=== PATIENT | male | born 1955 | race Caucasian/White ===

== ENCOUNTER 2018-10-23 10:58 | Inpatient (IN) | payer BC ==
[2018-10-23] MEDS ORDERED: Ondansetron INJ* 2 MG/ML VIAL IV ONE (11:13)
[2018-10-23] MEDS ORDERED: NS 0.9% 1000 ML** 1,000 ML IV ONE ×2 (11:13→12:08)
--- NOTE | 2018-10-23 11:19 | ED ---
Abdominal Pain/Male - HPI Summary HPI Summary: The patient is a 63 y/o M presenting to [facility] arriving by ambulance with a chief complaint of RLQ and LLQ pain starting yesterday. He states that he has not been officially diagnosed with diverticulitis, but has had episodes of symptoms similar to the condition, but they have all been in the LLQ. Now that the pain has also moved to the RLQ, he is concerned. The sharp pain is currently rated 10/10 in severity. He additionally c/o dysuria, decreased urinary frequency, no BM for two days (usually has one everyday), nausea, and decreased appetite. He denies vomiting. Hx of DM, HTN, and cardiac stents. No hx of abd surgery, but has had shoulder surgery. Allergic to Oxycodone. Former smoker. Rare EtOH. - History of Current Complaint Chief Complaint: EDAbdPain Stated Complaint: ABD PAIN PER EMS Time Seen by Provider: 10/23/18 11:04 Hx Obtained From: Patient Onset/Duration: Sudden Onset, Lasting Hours - since yesterday, Still Present Timing: Lasting Hours - since yesterday Severity Initially: Severe Severity Currently: Severe Pain Intensity: 10 Pain Scale Used: 0-10 Numeric Location: Other - LLQ and RLQ Radiates: No Character: Sharp Aggravating Factor(s): Nothing Alleviating Factor(s): Nothing Associated Signs And Symptoms: Positive: Constipation, Urinary Symptoms - dysuria and decreased frequency, Decreased Appetite, Nausea. Negative: Vomiting - Allergies/Home Medications Allergies/Adverse Reactions: Allergies Allergy/AdvReac Type Severity Reaction Status Date / Time oxycodone Allergy Intermediate Anxiety Verified 10/23/18 11:39 Home Medications: Home Medications Aspirin [Aspirin EC] 81 mg PO DAILY 10/23/18 [History Confirmed 10/23/18] Atorvastatin* [Lipitor 40 MG*] 40 mg PO DAILY 10/23/18 [History Confirmed ] Metoprolol Succinate XL TAB* [Toprol XL TAB*] 50 mg PO DAILY 10/23/18 [History Confirmed 10/23/18] PMH/Surg Hx/FS Hx/Imm Hx Endocrine/Hematology History: Reports: Hx Anticoagulant Therapy Denies: Hx Blood Disorders, Hx Diabetes, Hx Sickle Cell Disease, Hx Thyroid Disease, Hx Anemia, Hx Unexplained Bleeding Cardiovascular History: Reports: Hx Coronary Artery Disease - 7 stents, Hx Hypercholesterolemia, Hx Hypertension, Other Cardiovascular Problems/Disorders - CAD with stents Denies: Hx Aneurysm, Hx Angina, Hx Angioplasty, Hx Auto Implanted Cardiovert Defib, Hx Cardiac Arrest, Hx Cardiomegaly, Hx Congenital Heart Disease, Hx Congestive Heart Failure, Hx Deep Vein Thrombosis, Hx Embolism, Hx Hypotension, Hx Pacemaker/ICD, Hx Peripheral Vascular Disease, Hx Rheumatic Fever, Hx Syncope , Hx Valvular Heart Disease Respiratory History: Reports: Hx Sleep Apnea - possible, uses no CPAP Denies: Hx Asthma, Hx Chronic Bronchitis, Hx Chronic Obstructive Pulmonary Disease (COPD), Hx Cystic Fibrosis, Hx Lung Cancer, Hx Pleural Effusion, Hx Pneumonia, Hx Pulmonary Edema, Hx Pulmonary Embolism, Hx Seasonal Allergies GI History: Reports: Hx Gastroesophageal Reflux Disease Denies: Hx Cirrhosis, Hx Crohn's Disease, Hx Diverticulosis, Hx Gall Bladder Disease, Hx Gastrointestinal Bleed, Hx Hiatal Hernia, Hx Irritable Bowel, Hx Jaundice, Hx Obstructive Bowel, Hx Ileostomy, Hx Pyloric Stenosis, Hx Ulcer History: Denies: Hx Renal Disease Musculoskeletal History: Reports: Hx Back Problems, Hx Gout Sensory History: Denies: Hx Contacts or Glasses, Hx Hearing Aid Opthamlomology History: Denies: Hx Contacts or Glasses Psychiatric History: Reports: Hx Substance Abuse - Surgical History Surgery Procedure, Year, and Place: LEFT ROTATOR CUFF REPAIR, 07/11/13. Right ankle repair - 25 years ago Hx Anesthesia Reactions: No Infectious Disease History: No Infectious Disease History: Denies: Hx Clostridium Difficile, Hx Hepatitis, Hx Human Immunodeficiency Virus (HIV), Hx of Known/Suspected MRSA, Hx Shingles, Hx Tuberculosis, Hx Known/ Suspected VRE, Hx Known/Suspected VRSA, History Other Infectious Disease, Traveled Outside the [place] in Last 30 Days - Family History Known Family History: Positive: Cardiac Disease, Other Family History: R & n/C - Social History Alcohol Use: Occasionally Alcohol Amount: beer Hx Substance Use: No Substance Use Type: Reports: None Hx Tobacco Use: Yes Smoking Status (MU): Former Smoker Type: Cigarettes Do You Chew or Dip Tobacco: No Have You Chewed or Dipped Tobacco in the LAST YEAR: No Have You Smoked in the Last Year: No Review of Systems Positive: Abdominal Pain - RLQ and LLQ pain, Nausea, Other - decreased appetite , no BM for two days. Negative: Vomiting Positive: dysuria, frequency - decreased All Other Systems Reviewed And Are Negative: Yes Physical Exam - Summary Physical Exam Summary: GENERAL: Patient is a well-developed and nourished male who is lying comfortable in the stretcher. Patient is not in any acute respiratory distress. HEAD AND FACE: Normocephalic EYES: PERRLA, EOMI x 2. EARS: Hearing grossly intact. MOUTH: Oropharynx within normal limits. NECK: Supple, trachea is midline, no adenopathy, no JVD, no carotid bruit. CHEST: Symmetric, no tenderness at palpation LUNGS: Clear to auscultation bilaterally. No wheezing or crackles. CVS: Regular rate and rhythm, S1 and S2 present, no murmurs or gallops appreciated. ABDOMEN: Soft, diffuse pain worse in lower quadrants. Bowel sounds are normal. No abdominal abnormal pulsations. EXTREMITIES: Full ROM in all major joints, no edema, no cyanosis or clubbing. NEURO: Alert and oriented x 3. No acute neurological deficits. Speech is normal and follows commands. SKIN: Dry and warm Triage Information Reviewed: Yes Vital Signs On Initial Exam: Initial Vitals Temp Pulse Resp BP Pulse Ox 98.7 F 67 20 136/64 95 10/23/18 10:59 10/23/18 10:59 10/23/18 10:59 10/23/18 10:59 10/23/18 10:59 Vital Signs Reviewed: Yes Diagnostics - Vital Signs Vital Signs Temp Pulse Resp BP Pulse Ox 10/23/18 10:59 98.7 F 67 20 136/64 95 - Laboratory Result Diagrams: 10/24/18 05:31 10/24/18 05:31 Lab Statement: Any lab studies that have been ordered have been reviewed, and results considered in the medical decision making process. - CT Abd/Pel CT CT Interpretation Completed By: Radiologist Summary of CT Findings: 1. CT findings are most consistent with sigmoid diverticulitis without drainable fluid collection. Particularly if the patient has never had a colonoscopy, direct visualization may be appropriate after the patient's acute symptoms have passed to rule out the unlikely possibility of inflammatory bowel carcinoma. 2. The cecum and proximal transverse colon are mostly fluid-filled. 3. Additional chronic and degenerative changes noted in the body the report unlikely to be related to the patient's current presentation. ED physician has reviewed this report. - EKG 1117 Cardiac Rate: NL - 81 BPM EKG Rhythm: Sinus Rhythm EKG Comparison: No Significant Change - Similar to EKG taken on 01/03/2016. Summary of EKG Findings: Q waves in anterior leads. Flattening of T waves in lateral leads. Re-Evaluation - Re-Evaluation First Eval Re-Evaluation Time: 12:55 Change: Unchanged Comment: The patient states he is still in a lot of pain, but it is tolerable. He declines pain medication at this time. Second Eval Re-Evaluation Time: 15:00 Change: Unchanged Comment: I spoke with patient concerning results and admission to [facility]. He agrees with this plan. Abdominal Pain Male Course/Dx - Course Course Of Treatment: The patient is a 63 y/o M presenting [facility] arriving by ambulance with a chief complaint of RLQ and LLQ pain starting yesterday with associated dysuria, decreased urinary frequency, constipation, nausea, and decreased appetite. Upon physical exam, the patient exhibits diffuse abd pain worse in lower quadrants. In the ED course, the patient was administered Ns, Zofran, Morphine, and Iohexol (for CT). Blood work reveals WBC of 23.1, Hgb of 12.8, Hct of 40, MCV of 78, MCH of 25, immature gran% of 19, band neutrophils% of 19, abs neuts of 21.5, abs lymphs of 0.7, abs monocytes of 0.9, INR of 1.38, BUN/creatinine of 21, glucose of 104, total bilirubin of 1.20, AST of 12, CRP of 218.45, globulin of 4.1, albumin/globulin of 0.9, and lipase of <10. EKG reveals Q waves in anterior leads and flattening of T waves in lateral leads. Abd/Pel CT reveals sigmoid diverticulitis with likely fluid-filled cecum and proximal transverse colon. He is diagnosed with sigmoid diverticulitis. Case discussed with hospitalist Dr. Powell at 1500. She accepts the patient for admission. Patient agrees with this plan and understands the need for admission at this time. - Diagnoses Provider Diagnoses: Sigmoid diverticulitis - Provider Notifications Discussed Care Of Patient With: Marzena Powell - hospitalist Time Discussed With Above Provider: 15:00 Instructed by Provider To: Other - I spoke with Dr. Powell, who accepts the patient for admission at this time. Discharge - Sign-Out/Discharge Documenting (check all that apply): Patient Departure - Patient will be admitted to [facility] for further care. Patient Received Moderate/Deep Sedation with Procedure: No - Discharge Plan Condition: Stable Disposition: ADMITTED TO [facility] - Billing Disposition and Condition Condition: STABLE Disposition: Admitted to [facility] - Attestation Statements Document Initiated by Donteibe: Yes Documenting Scribe: Letty Davila Provider For Whom Donteibpipe is Documenting (Include Credential): Dr. Mark Grant MD Scribe Attestation: Letty Perales scribed for Dr. Mark Grant MD on 10/24/18 at 1251. Scribe Documentation Reviewed: Yes Provider Attestation: The documentation as recorded by the Letty umana accurately reflects the service I personally performed and the decisions made by me, Dr. Mark Grant MD Status of Scribe Document: Viewed
[2018-10-23] MEDS: Morphine 4 MG/ML VIAL (1 ml) 4 MG/ML VIAL IV ONE ×2 (11:34→16:34)
[2018-10-23 11:55] LABS: Hematocrit 40 % (42-52); Hemoglobin 12.8 g/dL (14.0-18.0); Mean Corpuscular HGB Conc 32 g/dL (31-36); Mean Corpuscular Hemoglobin 25 pg (27-31); Mean Corpuscular Volume 78 fL (80-94); Mean Platelet Volume 6.9 fL (7.4-10.4); Platelet Count 561 10^3/uL (150-450); Red Blood Count 5.12 10^6 /uL (4.18-5.48); Red Cell Distribution Width 17 % (10.5-15); White Blood Count 23.1 10^3/uL (3.5-10.8)
[2018-10-23 12:07] LABS: Activated Partial Thrombo Time 31.3 seconds (26.0-36.3); INR 1.38 (0.82-1.09)
[2018-10-23 12:12] LABS: ALT 10 U/L (7-52); AST 12 U/L (13-39); Albumin 3.7 g/dL (3.2-5.2); Albumin/Globulin Ratio 0.9 (1-3); Alkaline Phosphatase 101 U/L (34-104); Anion Gap 9 mmol/L (2-11); Blood Urea Nitrogen 21 mg/dL (6-24); C Reactive Protein 218.45 mg/L (<8.01); CO2 Carbon Dioxide 23 mmol/L (22-32); Calcium 9.1 mg/dL (8.6-10.3); Chloride 106 mmol/L (101-111); EGFR African American 91.3 (>60); EGFR Non-African American 75.5 (>60); Globulin 4.1 g/dL (2-4); Glucose 104 mg/dL (70-100); Magnesium 1.9 mg/dL (1.9-2.7); Potassium 3.9 mmol/L (3.5-5.0); Sodium 138 mmol/L (135-145); Total Protein 7.8 g/dL (6.4-8.9)
[2018-10-23 12:13] LABS: Troponin I 0.01 ng/mL (<0.04)
[2018-10-23 12:28] LABS: ABS Neutrophils 21.5 10^3/ul (1.5-7.7)
[2018-10-23] MEDS ORDERED: Iohexol 300* (CONTRAST) 10 ML SDV IV ONE (13:16)
[2018-10-23] MEDS ORDERED: metroNIDAZOLE IV 500 MG/100ML* 500 MG/100 ML BAG IVPB ONE (14:51)
[2018-10-23] MEDS ORDERED: Ciprofloxacin 400MG IVPREMIX(* 400 MG/200 ML BAG IVPB ONE (14:51)
[2018-10-23] MEDS ORDERED: Ketorolac INJ* 30 MG/ML 1 ML VIAL IV PUSH ONE (14:51)
[2018-10-23] MEDS ORDERED: Acetaminophen TAB* 325 MG PO PRN (15:30)
[2018-10-23] MEDS ORDERED: Magnesium Hydroxide LIQ* 30 ML UDC PO PRN (15:30)
[2018-10-23] MEDS ORDERED: Morphine INJ* 2 MG/ML 1 ML SYRINGE (TWO MG - NEW SYRINGE VERSION) IV PRN (15:30)
[2018-10-23] MEDS ORDERED: Morphine 4 MG/ML VIAL (1 ml) 4 MG/ML VIAL ONE (16:20)
[2018-10-23] MEDS: Enoxaparin(*) 40 MG/0.4 ML SYR SUBCUT SCH (17:50)
--- NOTE | 2018-10-23 20:34 | HP ---
CC: Dr. Cuauhtemoc Acosta * HISTORY AND PHYSICAL: DATE OF ADMISSION: 10/23/18 PRIMARY CARE PHYSICIAN: Cuauhtemoc Acosta MD HEALTHCARE PROXY: Marcelle (partner), phone number [phone]. CODE STATUS: Full. CHIEF COMPLAINT: Lower abdominal pain for 1 day. HISTORY OF PRESENT ILLNESS: Mr. Juarez is a 63-year-old man with a history of coronary artery disease status post 7 stents, last in 2011; hypertension; history of alcohol abuse with hospitalization for alcohol withdrawal; gout; and diverticulitis, who states that yesterday morning he began to feel lower abdominal pain on both sides when he woke up with a stabbing pain that was progressive and sometimes radiated to his upper abdomen. He took ibuprofen which "took the edge off" and also Pepto- Bismol which did not help. The pain was so severe that he said he experienced decreased appetite but no nausea or vomiting. His last bowel movement was the day before this and was formed brown stool. He has not had a bowel movement since 2 days ago. This pain progressed throughout the day yesterday and overnight he had significant night sweat but denied fever or chills. When he woke up this morning, the pain was worse, so he decided to present to the emergency room, because this reminded him of his prior episode of diverticulitis except it was worse. He was still able to pass gas. He denies chest pain, palpitations, dysuria, headache, shortness of breath. The patient reports a colonoscopy in 2015 that was normal except for 1 polyp which was removed. In the emergency room, the patient was noted to be afebrile, but had a white blood cell count of 23 with a normal lactic acid level. He had a abdomen and pelvis CT, which showed recurrence of diverticulitis without concern for abscess or perforation. Given his severe abdominal pain requiring IV medications for pain control, he was asked to be admitted to the hospitalist service. He had been started on IV Cipro/Flagyl and IV morphine for pain relief. Ten point review of systems performed, with pertinent positives and negatives listed in HPI. PAST MEDICAL HISTORY: 1. Coronary artery disease status post 7 stents, last one placed in 2011. 2. Hypertension. 3. Alcohol abuse in remission. The patient had hospitalization in 2013 in the context of stopping alcohol for a surgical procedure and had presented with anxiety, diaphoresis, and hallucinations, thought from alcohol withdrawal, although, the patient reports this was from taking oxycodone for surgery. 4. Gout. 5. Multiple left shoulder surgeries and dislocations. 6. Obstructive sleep apnea, unable to tolerate CPAP machine. MEDICATIONS: 1. Aspirin 81 mg daily. 2. Amlodipine 10 mg daily. 3. Metoprolol succinate 50 mg daily. 4. Allopurinol 300 mg daily. 5. Lansoprazole 30 mg daily. 6. Clopidogrel 75 mg daily. 7. Atorvastatin 40 mg daily. 8. [place]-3 fatty acids. 9. Nitroglycerin 0.4 mg sublingual every 5 minutes as needed for chest pain. 10. Naproxen 600 mg daily. ALLERGIES: OXYCODONE leads to panic attacks, although of note, the patient took OXYCODONE in the setting of stopping alcohol use, so it is thought that his symptoms were actually from alcohol withdrawal. FAMILY HISTORY: Father from an [place]. His grandfather also had history of coronary artery disease. Father had a CABG at 39. Mother had type of renal cancer that was cured with surgical removal. 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 He quit smoking in his early 30s. He started as a teenager. He started drinking alcohol age 16, 6 to 8 beers a day, but decreased his use to 1 day a week approximately a year and half ago. Denies other drug use. Lives with his partner, Marcelle. PHYSICAL EXAMINATION GENERAL: He is a well-nourished man, appears his stated age, nontoxic, mildly uncomfortable on movement, otherwise, alert and interactive and very pleasant. VITAL SIGNS: Afebrile, heart rate 60s, blood pressure 131/70, respiratory rate 16, oxygen saturation 96% on room air. HEENT: Moist mucous membranes. NECK: Unable to appreciate JVP given habitus. LUNGS: Clear to auscultation bilaterally. HEART: Regular rate and rhythm. No murmurs, gallops, or rubs. ABDOMEN: Protuberant, soft, tenderness to palpation in epigastrium, left lower quadrant, right lower quadrant with positive rebound tenderness. No guarding. No organomegaly appreciated. EXTREMITIES: Warm, well perfused. No evidence of edema. DIAGNOSTIC STUDIES/LAB DATA: Labs reviewed and significant for WBC 23 with left shift. Hemoglobin 12.8, microcytic. BUN/creatinine 21/1. Total bilirubin 1.2, unremarkable AST/ALT. CRP 218. CT abdomen and pelvis consistent with sigmoid diverticulitis without drainable fluid collection. The cecum and proximal transverse colon are mostly fluid filled. EKG with normal sinus rhythm at 61, borderline left axis deviation, Q waves V1 and V2. ASSESSMENT AND PLAN: A 63-year-old male with significant coronary artery disease; hypertension; gout; history of diverticulitis; history of alcohol abuse ; obstructive sleep apnea, not on CPAP; obesity, who is presenting with subacute lower abdominal pain associated with night sweats and decreased appetite found in the emergency room with leukocytosis and CT findings consistent with diverticulitis. 1. Diverticulitis. Continue IV ciprofloxacin and metronidazole. We will continue pain control with 1 g acetaminophen every 6 hours as needed for fever or mild pain and morphine 4 mg IV every 4 hours for moderate to severe pain as needed. Ondansetron for nausea. We will monitor vitals and fluid status closely , can advance diet as tolerated. The patient has not had a BM in 2 days, but noted to have liquid in his colon, so we will monitor bowel movements closely and give Miralax as needed for constipation and we will consider glycerine suppository. 2. Coronary artery disease. Continue aspirin and Plavix and metoprolol succinate 50 mg. 3. Hypertension. Blood pressure is borderline elevated, likely from so, so will continue home amlodipine 10 mg daily. 4. Gout. Continue allopurinol 300 mg daily. 5. DVT prophylaxis. Start on Lovenox subcu daily. 6. The patient is full code. TIME SPENT: Approximately 60 minutes was spent on admission of this patient, more than half of which was spent at bedside for the interview and exam. [id number]/[facility] #: [id number] [facility]ER'S HOSPITALHeriberto
[2018-10-23] MEDS: Atorvastatin* 40 MG TAB PO SCH (20:37)
[2018-10-23] MEDS: Morphine 4 MG/ML VIAL (1 ml) 4 MG/ML VIAL IV PRN (23:13)
[2018-10-24] MEDS: metroNIDAZOLE IV 500 MG/100ML* 500 MG/100 ML BAG IVPB SCH ×3 (00:17→16:41)
[2018-10-24] MEDS: Ciprofloxacin 400MG IVPREMIX(* 400 MG/200 ML BAG IVPB SCH ×2 (02:34→15:32)
[2018-10-24 05:51] LABS: Hematocrit 35 % (42-52); Hemoglobin 11.2 g/dL (14.0-18.0); Mean Corpuscular HGB Conc 32 g/dL (31-36); Mean Corpuscular Hemoglobin 25 pg (27-31); Mean Corpuscular Volume 77 fL (80-94); Mean Platelet Volume 6.9 fL (7.4-10.4); Platelet Count 457 10^3/uL (150-450); Red Blood Count 4.54 10^6 /uL (4.18-5.48); Red Cell Distribution Width 18 % (10.5-15); White Blood Count 22.6 10^3/uL (3.5-10.8)
[2018-10-24 06:10] LABS: Anion Gap 8 mmol/L (2-11); BUN/Creatinine Ratio 13.5 (8-20); Blood Urea Nitrogen 13 mg/dL (6-24); CO2 Carbon Dioxide 24 mmol/L (22-32); Calcium 8.3 mg/dL (8.6-10.3); Chloride 105 mmol/L (101-111); EGFR African American 95.7 (>60); EGFR Non-African American 79.1 (>60); Glucose 97 mg/dL (70-100); Potassium 3.3 mmol/L (3.5-5.0); Sodium 137 mmol/L (135-145)
[2018-10-24 06:21] LABS: ABS Basophils 0.1 10^3/ul (0-0.2); ABS Lymphocytes 0.7 10^3/ul (1.0-4.8); ABS Monocytes 1.3 10^3/ul (0-0.8); ABS Neutrophils 20.4 10^3/ul (1.5-7.7); Eosinophil % 0.1 %; Lymphocyte % 3.2 %
[2018-10-24 06:24] LABS: TSH (Thyroid Stimulating Horm) 2.82 mcIU/mL (0.34-5.60)
[2018-10-24 06:27] LABS: Iron < 17 ug/dL (50-212)
[2018-10-24] MEDS: Morphine 4 MG/ML VIAL (1 ml) 4 MG/ML VIAL IV PRN (06:47)
[2018-10-24] MEDS: Metoprolol Succinate XL TAB* 50 MG PO SCH (08:10)
[2018-10-24] MEDS: Aspirin EC TAB* 81 MG TAB.EC PO SCH (08:10)
[2018-10-24] MEDS: Pantoprazole TAB * 40 MG TAB PO SCH (08:10)
[2018-10-24] MEDS: amLODIPine TAB* 5 MG PO SCH (08:10)
[2018-10-24] MEDS: Clopidogrel TAB* 75 MG PO SCH (08:11)
[2018-10-24] MEDS: Allopurinol TAB* 300 MG PO SCH (08:11)
[2018-10-24] MEDS: Ketorolac INJ* 15 MG/ML 1 ML VIAL IV PUSH PRN ×2 (08:12→15:20)
[2018-10-24 08:39] LABS: Magnesium 1.8 mg/dL (1.9-2.7)
[2018-10-24] MEDS: OMEGA PO SCH (08:55)
[2018-10-24] MEDS: FATTY ACIDS PO SCH (08:55)
[2018-10-24] MEDS ORDERED: HYDROmorphone INJ1* 1 MG/ML SYRINGE IV SLOW PU PRN (09:46)
[2018-10-24 09:49] LABS: % Iron Saturation 7 % (15-55); Total Iron Binding Capacity 245 mcg/dL (250-450); Transferrin 175 mg/dL (203-362)
[2018-10-24] MEDS ORDERED: Magnesium Sulfate 2 GM IV* 2 GM/50 ML BAG IVPB ONE (09:49)
[2018-10-24] MEDS: Potassium Chloride* LIQUID 20 MEQ/15 ML UDC PO SCH ×2 (10:05→15:10)
--- NOTE | 2018-10-24 15:01 | PN ---
Subjective Date of Service: 10/24/18 Interval History: Lead Physician received call from nurse that patient's pain was uncontrolled, but patient had also not taken any of his ordered pain medication. Morphine, Tylenol and Toradol given with little to no relief. Therefore, IV pain medication changed to Dilaudid. Patient reports pain is tolerable when he is lying still, but increases and is "severe" with movement, coughing, and deep breathing. Denies nausea, vomiting, diarrhea, fever, chills, sob, cp. Reports he does not feel hungry, but attempted jello without nausea or increase in pain. Reports constipation. Reports last Wednesday. Also not passing flatus today or this weekend. Objective Active Medications: Acetaminophen (Tylenol Tab*) 975 mg PO Q6H PRN PRN Reason: Fever or Mild Pain Allopurinol (Zyloprim Tab*) 300 mg PO DAILY [facility] Last Admin: 10/24/18 08:11 Dose: 300 mg Amlodipine Besylate (Norvasc Tab*) 10 mg PO DAILY [facility] Last Admin: 10/24/18 08:10 Dose: 10 mg Aspirin (Aspirin Ec Tab*) 81 mg PO DAILY [facility] Last Admin: 10/24/18 08:10 Dose: 81 mg Atorvastatin Calcium (Lipitor*) 40 mg PO BEDTIME [facility] Last Admin: 10/23/18 20:37 Dose: 40 mg Clopidogrel Bisulfate (Plavix Tab*) 75 mg PO DAILY [facility] Last Admin: 10/24/18 08:11 Dose: 75 mg Enoxaparin Sodium (Lovenox(*)) 40 mg SUBCUT Q24H [facility] Last Admin: 10/23/18 17:50 Dose: 40 mg Hydromorphone HCl (Dilaudid Inj1s*) 1 mg IV SLOW PU Q4H PRN PRN Reason: PAIN Ciprofloxacin/Dextrose (Cipro 400 Mg Ivpremix(*)) 400 mg in 200 mls @ 200 mls/ hr IVPB Q12H [facility] Last Admin: 10/24/18 02:34 Dose: 200 mls/hr Metronidazole/Sodium Chloride (Flagyl 500 Mg Ivpb*) 500 mg in 100 mls @ 100 mls /hr IVPB 0100,0900,1700 [facility] Last Admin: 10/24/18 08:18 Dose: 100 mls/hr Ketorolac Tromethamine (Toradol Inj*) 15 mg IV PUSH Q6H PRN PRN Reason: PAIN Last Admin: 10/24/18 08:12 Dose: 15 mg Magnesium Hydroxide (Milk Of Magnsergio Liq*) 30 ml PO Q4H PRN PRN Reason: CONSTIPATION Metoprolol Succinate (Toprol Xl Tab*) 50 mg PO DAILY [facility] Last Admin: 10/24/18 08:10 Dose: 50 mg Non-Formulary Medication ([place]-3 Fatty Acids [Fish Oil]) 1,200 mg PO DAILY [facility] Last Admin: 10/24/18 08:55 Dose: Not Given Ondansetron HCl (Zofran Inj*) 4 mg IV Q6H PRN PRN Reason: NAUSEA Pantoprazole Sodium (Protonix Tab*) 40 mg PO DAILY [facility]; Protocol Last Admin: 10/24/18 08:10 Dose: 40 mg Vital Signs - 8 hr 10/24/18 10/24/18 10/24/18 07:48 07:50 08:00 Temperature 97.2 F Pulse Rate 86 Respiratory 20 18 18 Rate Blood Pressure 131/60 (mmHg) O2 Sat by Pulse 88 94 Oximetry 10/24/18 10:05 Temperature Pulse Rate Respiratory 18 Rate Blood Pressure (mmHg) O2 Sat by Pulse Oximetry Oxygen Devices in Use Now: Nasal Cannula Appearance: Grimicing with movement and coughing. NAD at rest. Eyes: No Scleral Icterus Ears/Nose/Mouth/Throat: Clear Oropharnyx, Mucous Membranes Moist Neck: NL Appearance and Movements; NL JVP Respiratory: Symmetrical Chest Expansion and Respiratory Effort, Clear to Auscultation Cardiovascular: NL Sounds; No Murmurs; No JVD, RRR, No Edema Abdominal: - - Abd soft. Tender throughout. BS hypoactive. Extremities: No Edema Skin: No Rash or Ulcers Neurological: Alert and Oriented x 3 Nutrition: Taking PO's Result Diagrams: 10/24/18 05:31 10/24/18 05:31 Additional Lab and Data: Laboratory Results - last 24 hr 10/24/18 10/24/18 05:31 05:31 WBC 22.6 H RBC 4.54 Hgb 11.2 L Hct 35 L MCV 77 L MCH 25 L MCHC 32 RDW 18 H Plt Count 457 H D MPV 6.9 L Neut % (Auto) 90.2 Lymph % (Auto) 3.2 [place] % (Auto) 5.9 Eos % (Auto) 0.1 Baso % (Auto) 0.6 Absolute Neuts (auto) 20.4 H Absolute Lymphs (auto) 0.7 L Absolute Monos (auto) 1.3 H Absolute Eos (auto) 0.0 Absolute Basos (auto) 0.1 Absolute Nucleated RBC 0.0 Nucleated RBC % 0.0 Sodium 137 Potassium 3.3 L Chloride 105 Carbon Dioxide 24 Anion Gap 8 BUN 13 Creatinine 0.96 Est GFR ( Amer) 95.7 Est GFR (Non-Af Amer) 79.1 BUN/Creatinine Ratio 13.5 Glucose 97 Calcium 8.3 L Magnesium 1.8 L Iron < 17 L TIBC 245 L % Saturation 7 L Unsat Iron Binding < 230 Transferrin 175 L Ferritin 481.0 H TSH 2.82 Microbiology and Other Data: Microbiology 10/23/18 14:05 Blood Venous Aerobic Blood Culture - Preliminary No Growth Day 1 10/23/18 14:05 Blood Venous Anaerobic Blood Culture - Preliminary No Growth Day 1 10/23/18 11:19 Blood Venous Aerobic Blood Culture - Preliminary No Growth Day 1 10/23/18 11:19 Blood Venous Anaerobic Blood Culture - Preliminary No Growth Day 1 Assess/Plan/Problems-Billing Assessment: 63 yr old male with pmh of CAD s/p 7 stents, HTN, ETOH abuse in remission, gout , multiple left shoulder surgeries; present to ED lower abd pain. - Patient Problems (1) Diverticulitis Comment: - Cont Cipro and Flagyl. - Pain not controlled with Morphine, therefore, changed to Dilaudid 0.5 mg Q4hr. Dilaudid 0.5 mg Q 4 hr gave only slight relief, therefore, increased to Dilaudid 1 mg Q 4hr. Monitor for pain control and sedation - No BM since Wednesday. Denies passing flatus. No evdince of obstruction on CT. Bowel meds are ordered. - Decrease PO intake. Resume IVF until taking more PO (2) Hypertension Comment: - Cont Norvasc and Metoprolol - Normotensive currently (3) CAD (coronary artery disease) Comment: - Cont Plavix, ASA, and Metoprolol (4) Gout Comment: - Cont Allopurinol (5) DVT prophylaxis Comment: - Lovenox SQ (6) Full code status Status and Disposition: Inpatient for IV pain control. Discharge home when medically stable. Attending: Leslie Haddad
[2018-10-24] MEDS: Enoxaparin(*) 40 MG/0.4 ML SYR SUBCUT SCH (15:10)
[2018-10-24] MEDS: HYDROmorphone INJ1* 1 MG/ML SYRINGE IV SLOW PU PRN ×2 (15:10→20:49)
[2018-10-24 15:52] LABS: BUN/Creatinine Ratio 16.5 (8-20); Calcium 8.7 mg/dL (8.6-10.3); EGFR African American 94.6 (>60); EGFR Non-African American 78.2 (>60); Potassium 3.7 mmol/L (3.5-5.0)
[2018-10-24] MEDS: Ondansetron INJ* 2 MG/ML VIAL IV PRN ×2 (16:40→20:48)
[2018-10-24] MEDS: NS 0.9% 1000 ML** 1,000 ML IV SCH (16:41)
[2018-10-24] MEDS ORDERED: PROCHLORPERAZINE INJ 5 MG/ML 2 ML VIAL IM PRN (17:52)
[2018-10-24] MEDS ORDERED: PROCHLORPERAZINE INJ 5 MG/ML 2 ML VIAL IV PRN (18:04)
[2018-10-24] MEDS: Atorvastatin* 40 MG TAB PO SCH (20:49)
[2018-10-25] MEDS: metroNIDAZOLE IV 500 MG/100ML* 500 MG/100 ML BAG IVPB SCH ×2 (00:52→09:28)
[2018-10-25] MEDS: Ciprofloxacin 400MG IVPREMIX(* 400 MG/200 ML BAG IVPB SCH (02:49)
[2018-10-25 07:03] LABS: ABS Eosinophils 0.3 10^3/ul (0-0.6); ABS Lymphocytes 0.7 10^3/ul (1.0-4.8); ABS Monocytes 1.1 10^3/ul (0-0.8); ABS Neutrophils 15.8 10^3/ul (1.5-7.7); Eosinophil % 1.7 %; Hematocrit 32 % (42-52); Hemoglobin 10.4 g/dL (14.0-18.0); Lymphocyte % 3.9 %; Mean Corpuscular HGB Conc 32 g/dL (31-36); Mean Corpuscular Hemoglobin 25 pg (27-31); Mean Corpuscular Volume 77 fL (80-94); Mean Platelet Volume 7.1 fL (7.4-10.4); Platelet Count 410 10^3/uL (150-450); Red Blood Count 4.17 10^6 /uL (4.18-5.48); Red Cell Distribution Width 18 % (10.5-15); White Blood Count 17.9 10^3/uL (3.5-10.8)
[2018-10-25 08:05] LABS: Urine Appearance Cloudy; Urine Bacteria Absent (Absent); Urine Bilirubin Negative (Negative); Urine Blood Negative (Negative); Urine Color Amber; Urine Glucose Negative (Negative); Urine Ketones Negative (Negative); Urine Nitrite Negative (Negative); Urine Protein 1+(30 mg/dL) (Negative); Urine Red Blood Cell 1+(3-5/hpf) (Absent); Urine Specific Gravity 1.027 (1.010-1.030); Urine Urobilinogen Positive (Negative); Urine White Blood Cell Trace(0-5/hpf) (Absent)
[2018-10-25] MEDS: OMEGA PO SCH (09:22)
[2018-10-25] MEDS: FATTY ACIDS PO SCH (09:22)
[2018-10-25] MEDS: Clopidogrel TAB* 75 MG PO SCH (09:28)
[2018-10-25] MEDS: Allopurinol TAB* 300 MG PO SCH (09:28)
[2018-10-25] MEDS: Metoprolol Succinate XL TAB* 50 MG PO SCH (09:28)
[2018-10-25] MEDS: amLODIPine TAB* 5 MG PO SCH (09:28)
[2018-10-25] MEDS: Aspirin EC TAB* 81 MG TAB.EC PO SCH (09:28)
[2018-10-25] MEDS: Pantoprazole TAB * 40 MG TAB PO SCH (09:28)
--- NOTE | 2018-10-25 09:30 | PN ---
Subjective Date of Service: 10/25/18 Interval History: Received call last evening that patient was nauseated. Given patient's abd assessment and new nausea, abd xray obtained. Revealed partial sbo. Patient assessed at bedside this morning. Reports pain is more controlled with Dilaudid as he is now able to move with "severe" pain. He was also able to ambulate. Denies flatus or BM. Last BM 10/21. Continues to have some nausea which is relieved with anti nausea medications. Continues to have abd pain throughout. Denies cp, sob, vomiting, fever, chills. Objective Active Medications: Acetaminophen (Tylenol Tab*) 975 mg PO Q6H PRN PRN Reason: Fever or Mild Pain Allopurinol (Zyloprim Tab*) 300 mg PO DAILY [facility] Last Admin: 10/24/18 08:11 Dose: 300 mg Amlodipine Besylate (Norvasc Tab*) 10 mg PO DAILY [facility] Last Admin: 10/24/18 08:10 Dose: 10 mg Aspirin (Aspirin Ec Tab*) 81 mg PO DAILY [facility] Last Admin: 10/24/18 08:10 Dose: 81 mg Atorvastatin Calcium (Lipitor*) 40 mg PO BEDTIME [facility] Last Admin: 10/24/18 20:49 Dose: 40 mg Clopidogrel Bisulfate (Plavix Tab*) 75 mg PO DAILY [facility] Last Admin: 10/24/18 08:11 Dose: 75 mg Enoxaparin Sodium (Lovenox(*)) 40 mg SUBCUT Q24H [facility] Last Admin: 10/24/18 15:10 Dose: 40 mg Hydromorphone HCl (Dilaudid Inj1s*) 1 mg IV SLOW PU Q4H PRN PRN Reason: PAIN Last Admin: 10/24/18 20:49 Dose: 1 mg Ciprofloxacin/Dextrose (Cipro 400 Mg Ivpremix(*)) 400 mg in 200 mls @ 200 mls/ hr IVPB Q12H [facility] Last Admin: 10/25/18 02:49 Dose: 200 mls/hr Metronidazole/Sodium Chloride (Flagyl 500 Mg Ivpb*) 500 mg in 100 mls @ 100 mls /hr IVPB 0100,0900,1700 [facility] Last Admin: 10/25/18 00:52 Dose: 100 mls/hr Sodium Chloride (Ns 0.9% 1000 Ml) 1,000 mls @ 75 mls/hr IV PER RATE [facility] Last Admin: 10/24/18 16:41 Dose: 75 mls/hr Ketorolac Tromethamine (Toradol Inj*) 15 mg IV PUSH Q6H PRN PRN Reason: PAIN Last Admin: 10/24/18 15:20 Dose: 15 mg Magnesium Hydroxide (Milk Of Magnesia Liq*) 30 ml PO Q4H PRN PRN Reason: CONSTIPATION Metoprolol Succinate (Toprol Xl Tab*) 50 mg PO DAILY [facility] Last Admin: 10/24/18 08:10 Dose: 50 mg Non-Formulary Medication (Massey-3 Fatty Acids [Fish Oil]) 1,200 mg PO DAILY [facility] Last Admin: 10/25/18 09:22 Dose: Not Given Ondansetron HCl (Zofran Inj*) 4 mg IV Q6H PRN PRN Reason: NAUSEA Last Admin: 10/24/18 20:48 Dose: 4 mg Pantoprazole Sodium (Protonix Tab*) 40 mg PO DAILY [facility]; Protocol Last Admin: 10/24/18 08:10 Dose: 40 mg Prochlorperazine Edisylate (Compazine Inj*) 5 mg IV Q6H PRN PRN Reason: NAUSEA Vital Signs - 8 hr 10/25/18 10/25/18 10/25/18 07:25 07:28 07:30 Temperature 98.4 F Pulse Rate 59 Respiratory 18 16 16 Rate Blood Pressure 125/62 (mmHg) O2 Sat by Pulse 92 Oximetry 10/25/18 09:21 Temperature Pulse Rate 67 Respiratory Rate Blood Pressure (mmHg) O2 Sat by Pulse Oximetry Oxygen Devices in Use Now: None Appearance: Comfortable, NAD Eyes: No Scleral Icterus Ears/Nose/Mouth/Throat: Clear Oropharnyx, Mucous Membranes Moist Neck: NL Appearance and Movements; NL JVP Respiratory: Symmetrical Chest Expansion and Respiratory Effort, Clear to Auscultation Cardiovascular: NL Sounds; No Murmurs; No JVD, RRR, No Edema Abdominal: - - Hypoactive BS. Tender throughout to light touch. Not distended or rigid. Lymphatic: No Cervical Adenopathy Extremities: No Edema Skin: No Rash or Ulcers Neurological: Alert and Oriented x 3 Nutrition: - - NPO except sips of H20 Result Diagrams: 10/25/18 06:10 10/24/18 15:29 Additional Lab and Data: Laboratory Results - last 24 hr 10/24/18 10/24/18 10/25/18 05:31 15:29 06:10 WBC 17.9 H RBC 4.17 L Hgb 10.4 L Hct 32 L MCV 77 L MCH 25 L MCHC 32 RDW 18 H Plt Count 410 MPV 7.1 L Neut % (Auto) 88.2 Lymph % (Auto) 3.9 [place] % (Auto) 6.0 Eos % (Auto) 1.7 Baso % (Auto) 0.2 Absolute Neuts (auto) 15.8 H Absolute Lymphs (auto) 0.7 L Absolute Monos (auto) 1.1 H Absolute Eos (auto) 0.3 Absolute Basos (auto) 0.0 Absolute Nucleated RBC 0.0 Nucleated RBC % 0.0 Sodium 135 Potassium 3.7 Chloride 104 Carbon Dioxide 25 Anion Gap 6 BUN 16 Creatinine 0.97 Est GFR ( Amer) 94.6 Est GFR (Non-Af Amer) 78.2 BUN/Creatinine Ratio 16.5 Glucose 109 H Calcium 8.7 Magnesium TIBC 245 L % Saturation 7 L Unsat Iron Binding < 230 Transferrin 175 L Urine Color Urine Appearance Urine pH Ur Specific [place] Urine Protein Urine Ketones Urine Blood Urine Nitrate Urine Bilirubin Urine Urobilinogen Ur Leukocyte Esterase Urine WBC (Auto) Urine RBC (Auto) Urine Bacteria Urine Glucose 10/25/18 10/25/18 06:10 07:00 WBC RBC Hgb Hct MCV MCH MCHC RDW Plt Count MPV Neut % (Auto) Lymph % (Auto) [place] % (Auto) Eos % (Auto) Baso % (Auto) Absolute Neuts (auto) Absolute Lymphs (auto) Absolute Monos (auto) Absolute Eos (auto) Absolute Basos (auto) Absolute Nucleated RBC Nucleated RBC % Sodium Potassium Chloride Carbon Dioxide Anion Gap BUN Creatinine Est GFR ( Amer) Est GFR (Non-Af Amer) BUN/Creatinine Ratio Glucose Calcium Magnesium 2.4 TIBC % Saturation Unsat Iron Binding Transferrin Urine Color [place] Urine Appearance Cloudy Urine pH 5.0 Ur Specific [place] 1.027 Urine Protein 1+(30 mg/dl) A Urine Ketones Negative Urine Blood Negative Urine Nitrate Negative Urine Bilirubin Negative Urine Urobilinogen Positive A Ur Leukocyte Esterase Trace A Urine WBC (Auto) Trace(0-5/hpf) Urine RBC (Auto) 1+(3-5/hpf) A Urine Bacteria Absent Urine Glucose Negative Microbiology and Other Data: Microbiology 10/23/18 14:05 Blood Venous Aerobic Blood Culture - Preliminary No Growth Day 1 10/23/18 14:05 Blood Venous Anaerobic Blood Culture - Preliminary No Growth Day 1 10/23/18 11:19 Blood Venous Aerobic Blood Culture - Preliminary No Growth Day 1 10/23/18 11:19 Blood Venous Anaerobic Blood Culture - Preliminary No Growth Day 1 Assess/Plan/Problems-Billing Assessment: 63 yr old male with pmh of CAD s/p 7 stents, HTN, ETOH abuse in remission, gout , multiple left shoulder surgeries; present to ED lower abd pain. - Patient Problems (1) SBO (small bowel obstruction) Comment: - Cont NPO - Abd Xray revealed partial SBO. - Surgical consult requested and I appreciate their assistance - Per surgery we can hold off on NG tube as patient would not benefit at this time as imaging does not reveal a distended stomach (2) Diverticulitis Comment: - Per surgery stop Cipro/Flagyl and start Zosyn - Pain better controlled with Dilaudid 1 mg Q 4hr. Monitor for pain control and sedation - Repeat CT per surgery; Results consistent with diverticulitis and small note of pericolonic gas, and signs of ileus. Discussed results with Dr Camargo - Cont IVF given NPO status (3) Anemia Comment: - Mixed type; possible chronic disease (given hx of etoh abuse), iron deficiency , and inflammation - Would benefit from repeat studies as outpatient when improved and maybe iron replacement - Stool ordered for blood (4) Hypertension Comment: - Cont Norvasc and Metoprolol - Normotensive currently (5) CAD (coronary artery disease) Comment: - Cont Plavix, ASA, and Metoprolol (6) Gout Comment: - Cont Allopurinol (7) DVT prophylaxis Comment: - Lovenox SQ (8) Full code status Status and Disposition: Inpatient for IV pain control. Discharge home when medically stable. Attending: Leslie Haddad
[2018-10-25] MEDS ORDERED: Piperacillin/Tazobac ADVAN(*) 3.375 GM in NS 0.9% 100 ML* 100 ML IVPB ONE (09:47)
[2018-10-25] MEDS ORDERED: Zosyn per Pharmacy* NOTE FOLLOW UP SCH (10:00)
[2018-10-25] MEDS: Ondansetron INJ* 2 MG/ML VIAL IV PRN ×2 (10:23→19:40)
[2018-10-25] MEDS: Ketorolac INJ* 15 MG/ML 1 ML VIAL IV PUSH PRN ×2 (10:27→23:10)
[2018-10-25] MEDS ORDERED: Iohexol 300* (CONTRAST) 10 ML SDV IV ONE (13:05)
[2018-10-25] MEDS: ZOSYN 3.375 GM Q8H per EXTENDED INFUSION IVPB SCH ×4 (15:35→22:51)
[2018-10-25] MEDS: Enoxaparin(*) 40 MG/0.4 ML SYR SUBCUT SCH (15:35)
[2018-10-25] MEDS: HYDROmorphone INJ1* 1 MG/ML SYRINGE IV SLOW PU PRN ×2 (15:44→19:40)
--- NOTE | 2018-10-25 20:05 | CONS ---
CONSULTATION REPORT: DATE OF CONSULT: 10/25/18 SERVICE: General Surgery. ATTENDING SURGEON: Dr. Erin Camargo. REASON FOR CONSULT: Diverticulitis with ileus. HISTORY OF PRESENT ILLNESS: Mr. Juarez is a very pleasant 63-year-old gentleman with a history of coronary artery disease, status post 7 stents, the last one in 2011; hypertension; history of alcohol abuse; history of diverticulitis who presented to the emergency room on 10/23/18 with complaints of having severe lower abdominal pain that felt like the pain that he previously had with his diverticulitis episodes. He notes today that that pain was more significant than his prior diverticulitis episodes. He says that for the past 7-8 years he has one or two episodes a year but they mostly resolve with PO antibiotics. However, this time the pain was so severe that he came to the emergency room for evaluation. He underwent a CT scan that showed sigmoid diverticulitis without an abscess and his white blood cell count upon admission was 23. He was admitted to the medical service and his white blood cell count has been slowly declining; however, today he complained of having more abdominal distention. He says that he has not had any flatus or bowel movements before coming into the emergency room. Normally, he has bowel movements almost every day, although he does state that he occasionally gets constipated. He denies having any blood in his stools earlier. An abdominal x-ray today showed possible partial small-bowel obstruction and therefore, surgery was consulted. The patient today says that he still continues to have some significant abdominal pain that has not really improved. He says that pain medications do help it, but then the pain just comes back. He says that he does feel more distended than before. Otherwise, no significant complaints. Of note, the patient said that his last colonoscopy was in 2016 where he had one polyp removed and he has no history of colon cancer in his family. PAST MEDICAL HISTORY: 1. Coronary artery disease, status post 7 stents, last one placed in 2011. 2. Hypertension. 3. Alcohol abuse, in remission. 4. Gout. 5. Multiple orthopedic surgeries. 6. Obstructive sleep apnea. MEDICATIONS: 1. Aspirin 81 mg daily. 2. Amlodipine 10 mg daily. 3. Metoprolol 50 mg daily. 4. Allopurinol 300 mg daily. 5. Lansoprazole 30 mg daily. 6. Plavix 75 mg daily. 7. Atorvastatin 40 mg daily. 8. Nitroglycerin 0.4 mg sublingual every 5 minutes as needed for chest pain. 9. Naproxen 600 mg daily. ALLERGIES: OXYCODONE leads to panic attacks, but he noted that his symptoms were related to his alcohol withdrawal at that time. FAMILY HISTORY: Father from a myocardial infarction. His grandfather also had a history of coronary artery disease. His father had a CABG at 39. Mother had renal cell carcinoma. 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 He quit smoking in his 30s. He had a history of alcohol abuse. Denies any other drug use. PHYSICAL EXAM: Vital Signs: Temperature is 97.3, pulse is 53, respiratory rate is 18, O2 sat is 100% O2 on 1.5 L nasal cannula, blood pressure is 136/66. General: He is an obese male, lying in bed, in no apparent distress. HEENT is normocephalic, atraumatic. Cardiovascular is regular rate and rhythm. Respiratory is clear to auscultation bilaterally. Abdomen is soft, mildly distended, tender in all 4 quadrants, but no rebound. Extremities: No edema. DIAGNOSTIC STUDIES/LAB DATA: Laboratory Values: On 10/25/18, white blood cell count is 17.9, hemoglobin 10.4, hematocrit is 32, platelets are 410. BMP from 10/24/18: Sodium is 135, potassium is 3.7, chloride 104, BUN 16, creatinine is 0.97, glucose is 109. Imaging: CT abdomen and pelvis on 10/25/18 shows again noted diverticulitis with pericolonic free fluid and inflammatory change without loculated fluid collection to suggest abscess. There is a small focus of pericolonic gas noted in the mesentery that does not appear to be intraluminal consistent with a perforation. There is no large free intraperitoneal gas. There is diffuse distention of the small-bowel without dilatation or transition point suggestive of ileus. Abdominal x-ray on 10/24/18 shows dilated small-bowel with contrast in the right colon, likely representing partial small-bowel obstruction. A CT abdomen and pelvis on 10/23/[address] findings are most consistent with sigmoid diverticulitis without drainable fluid collection. Cecum and proximal transverse colon are mostly fluid-filled. ASSESSMENT AND PLAN: Mr. Juarez is a 63-year-old gentleman with a history of coronary artery disease, status post 7 stents, on aspirin and Plavix, who presented to the emergency room with acute diverticulitis, who has now developed an ileus secondary to the inflammatory changes from the sigmoid colon. On his repeat CT scan, on my review, it looks fairly similar to his prior scan. There was a new finding by the radiologist of a focus of extraperitoneal air, but no abscess. The patient's white count has been declining. He remains afebrile. He continues to have abdominal pain; therefore , I recommended that he remain n.p.o. and that antibiotics be switched from Cipro and Flagyl to Zosyn. He should not advance to clears until he has significant improvement in his abdominal pain. I have counseled the patient that should he require urgent surgery on this admission, then likely he would require a George's procedure, which would involve an end colostomy. Also, he would have to have cardiac preoperative evaluation given that he is high risk from his cardiac history. He is currently on dual antiplatelet therapy for his stents and these would have to be stopped prior to undergo surgery. However, I did tell the patient that there is a possibility that he could improve on this admission and be able to be discharged, in which case he should very much consider undergoing an elective sigmoid colectomy given that he says that he has had these episodes of diverticulitis for approximately 7 to 8 years. He understands all these things and he agrees. 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 Regarding his ileus, he should continue to remain n.p.o. until he has some return to bowel function and his pain improves. I discussed these things with Margarette, the nurse practitioner taking care of this patient. TIME SPENT: I spent a total of approximately 30 minutes in the coordination of care of this patient, over half of it was [id number]. [id number]/[facility] #: [id number] YENI
[2018-10-25] MEDS: Atorvastatin* 40 MG TAB PO SCH (20:12)
[2018-10-26] MEDS: HYDROmorphone INJ1* 1 MG/ML SYRINGE IV SLOW PU PRN ×3 (01:35→14:25)
[2018-10-26] MEDS: NS 0.9% 1000 ML** 1,000 ML IV SCH (04:18)
[2018-10-26] MEDS: ZOSYN 3.375 GM Q8H per EXTENDED INFUSION IVPB SCH ×2 (06:17)
[2018-10-26 07:25] LABS: ABS Basophils 0.1 10^3/ul (0-0.2); ABS Eosinophils 0.4 10^3/ul (0-0.6); ABS Lymphocytes 0.5 10^3/ul (1.0-4.8); ABS Monocytes 1.1 10^3/ul (0-0.8); ABS Neutrophils 13.6 10^3/ul (1.5-7.7); Eosinophil % 2.7 %; Hematocrit 33 % (42-52); Hemoglobin 10.6 g/dL (14.0-18.0); Lymphocyte % 3.3 %; Mean Corpuscular HGB Conc 32 g/dL (31-36); Mean Corpuscular Hemoglobin 25 pg (27-31); Mean Corpuscular Volume 77 fL (80-94); Mean Platelet Volume 7.3 fL (7.4-10.4); Platelet Count 449 10^3/uL (150-450); Red Blood Count 4.28 10^6 /uL (4.18-5.48); Red Cell Distribution Width 18 % (10.5-15); White Blood Count 15.7 10^3/uL (3.5-10.8)
[2018-10-26 07:40] LABS: BUN/Creatinine Ratio 20.2 (8-20); EGFR African American 111.7 (>60); EGFR Non-African American 92.3 (>60); Magnesium 2.2 mg/dL (1.9-2.7); Potassium 3.3 mmol/L (3.5-5.0)
[2018-10-26] MEDS: amLODIPine TAB* 5 MG PO SCH (08:36)
[2018-10-26] MEDS: Pantoprazole TAB * 40 MG TAB PO SCH (08:36)
[2018-10-26] MEDS: Clopidogrel TAB* 75 MG PO SCH (08:37)
[2018-10-26] MEDS: Metoprolol Succinate XL TAB* 50 MG PO SCH (08:37)
[2018-10-26] MEDS: Allopurinol TAB* 300 MG PO SCH (08:37)
[2018-10-26] MEDS: Aspirin EC TAB* 81 MG TAB.EC PO SCH (08:37)
[2018-10-26] MEDS: FATTY ACIDS PO SCH (09:04)
[2018-10-26] MEDS: OMEGA PO SCH (09:04)
--- NOTE | 2018-10-26 11:31 | PN ---
Progress Note - Progress Note Date of Service: 10/26/18 Note: Surgery Progress Note S: Patient says he is feeling better today and has less pain. No flatus. He has been ambulating. O: Vital Signs - 24 hr 10/25/18 10/25/18 10/25/18 11:45 15:27 15:44 Temperature 98 F 97.3 F Pulse Rate 57 57 Respiratory 16 18 17 Rate Blood Pressure 120/60 136/66 (mmHg) O2 Sat by Pulse 92 100 Oximetry 10/25/18 10/25/18 10/25/18 16:47 19:40 19:54 Temperature 97.7 F Pulse Rate 58 Respiratory 18 16 20 Rate Blood Pressure 129/71 (mmHg) O2 Sat by Pulse 93 Oximetry 10/25/18 10/25/18 10/25/18 20:00 20:30 23:42 Temperature 97.4 F Pulse Rate 54 Respiratory 18 16 20 Rate Blood Pressure 143/69 (mmHg) O2 Sat by Pulse 91 Oximetry 10/26/18 10/26/18 10/26/18 01:35 02:23 03:14 Temperature 97.5 F Pulse Rate 55 Respiratory 18 18 18 Rate Blood Pressure 112/67 (mmHg) O2 Sat by Pulse 87 Oximetry 10/26/18 10/26/18 10/26/18 07:38 08:00 08:37 Temperature 98.4 F Pulse Rate 55 Respiratory 16 18 18 Rate Blood Pressure 157/71 (mmHg) O2 Sat by Pulse 92 Oximetry 10/26/18 10/26/18 10:05 11:15 Temperature 98.0 F Pulse Rate 53 Respiratory 17 20 Rate Blood Pressure 144/66 (mmHg) O2 Sat by Pulse 94 Oximetry Laboratory Last Values WBC 15.7 10^3/uL (3.5-10.8) H 10/26/18 06:50 RBC 4.28 10^6 /uL (4.18-5.48) 10/26/18 06:50 Hgb 10.6 g/dL (14.0-18.0) L 10/26/18 06:50 Hct 33 % (42-52) L 10/26/18 06:50 MCV 77 fL (80-94) L 10/26/18 06:50 MCH 25 pg (27-31) L 10/26/18 06:50 MCHC 32 g/dL (31-36) 10/26/18 06:50 RDW 18 % (10.5-15) H 10/26/18 06:50 Plt Count 449 10^3/uL (150-450) 10/26/18 06:50 MPV 7.3 fL (7.4-10.4) L 10/26/18 06:50 Neut % (Auto) 86.4 % 10/26/18 06:50 Lymph % (Auto) 3.3 % 10/26/18 06:50 [place] % (Auto) 7.2 % 10/26/18 06:50 Eos % (Auto) 2.7 % 10/26/18 06:50 Baso % (Auto) 0.4 % 10/26/18 06:50 Absolute Neuts (auto) 13.6 10^3/ul (1.5-7.7) H 10/26/18 06:50 Absolute Lymphs (auto) 0.5 10^3/ul (1.0-4.8) L 10/26/18 06:50 Absolute Monos (auto) 1.1 10^3/ul (0-0.8) H 10/26/18 06:50 Absolute Eos (auto) 0.4 10^3/ul (0-0.6) 10/26/18 06:50 Absolute Basos (auto) 0.1 10^3/ul (0-0.2) 10/26/18 06:50 Absolute Nucleated RBC 0.0 10^3/ul 10/26/18 06:50 Immature Gran % 19.0 % (0-9) H 10/23/18 11:19 Neutrophils % 74.0 % 10/23/18 11:19 Band Neutrophils % 19.0 % (0-8) H 10/23/18 11:19 Lymphocytes % 3.0 % 10/23/18 11:19 Monocytes % 4.0 % 10/23/18 11:19 Nucleated RBC % 0.0 10/26/18 06:50 Abs Neuts (Manual) 21.5 10^3/ul (1.5-7.7) H 10/23/18 11:19 Abs Lymphs (Manual) 0.7 10^3/ul (1.0-4.8) L 10/23/18 11:19 Abs Monocytes (Manual) 0.9 10^3/ul (0-0.8) H 10/23/18 11:19 Absolute Eos (Manual) 0.0 10^3/ul (0-0.6) 10/23/18 11:19 Abs Basophils (Manual) 0.0 10^3/ul (0-0.2) 10/23/18 11:19 Normal RBC Morphology Normal (Normal) 10/23/18 11:19 INR (Anticoag Therapy) 1.38 (0.82-1.09) H 10/23/18 11:19 APTT 31.3 seconds (26.0-36.3) 10/23/18 11:19 Sodium 138 mmol/L (135-145) 10/26/18 06:50 Potassium 3.3 mmol/L (3.5-5.0) L 10/26/18 06:50 Chloride 105 mmol/L (101-111) 10/26/18 06:50 Carbon Dioxide 25 mmol/L (22-32) 10/26/18 06:50 Anion Gap 8 mmol/L (2-11) 10/26/18 06:50 BUN 17 mg/dL (6-24) 10/26/18 06:50 Creatinine 0.84 mg/dL (0.67-1.17) 10/26/18 06:50 Est GFR ( Amer) 111.7 (>60) 10/26/18 06:50 Est GFR (Non-Af Amer) 92.3 (>60) 10/26/18 06:50 BUN/Creatinine Ratio 20.2 (8-20) H 10/26/18 06:50 Glucose 78 mg/dL (70-100) 10/26/18 06:50 Lactic Acid 1.8 mmol/L (0.5-2.0) 10/23/18 11:19 Calcium 8.0 mg/dL (8.6-10.3) L 10/26/18 06:50 Magnesium 2.2 mg/dL (1.9-2.7) 10/26/18 06:50 Iron < 17 ug/dL (50-212) L 10/24/18 05:31 TIBC 245 mcg/dL (250-450) L 10/24/18 05:31 % Saturation 7 % (15-55) L 10/24/18 05:31 Unsat Iron Binding < 230 ug/dL 10/24/18 05:31 Transferrin 175 mg/dL (203-362) L 10/24/18 05:31 Ferritin 481.0 ng/mL (24-336) H 10/24/18 05:31 Total Bilirubin 1.20 mg/dL (0.2-1.0) H 10/23/18 11:19 AST 12 U/L (13-39) L 10/23/18 11:19 ALT 10 U/L (7-52) 10/23/18 11:19 Alkaline Phosphatase 101 U/L (34-104) 10/23/18 11:19 Troponin I 0.01 ng/mL (<0.04) 10/23/18 11:19 C-Reactive Protein 218.45 mg/L (<8.01) H 10/23/18 11:19 Total Protein 7.8 g/dL (6.4-8.9) 10/23/18 11:19 Albumin 3.7 g/dL (3.2-5.2) 10/23/18 11:19 Globulin 4.1 g/dL (2-4) H 10/23/18 11:19 Albumin/Globulin Ratio 0.9 (1-3) L 10/23/18 11:19 Lipase < 10 U/L (11.0-82.0) L 10/23/18 11:19 TSH 2.82 mcIU/mL (0.34-5.60) 10/24/18 05:31 Urine Color [place] 10/25/18 07:00 Urine Appearance Cloudy 10/25/18 07:00 Urine pH 5.0 (5-9) 10/25/18 07:00 Ur Specific [place] 1.027 (1.010-1.030) 10/25/18 07:00 Urine Protein 1+(30 mg/dl) (Negative) A 10/25/18 07:00 Urine Ketones Negative (Negative) 10/25/18 07:00 Urine Blood Negative (Negative) 10/25/18 07:00 Urine Nitrate Negative (Negative) 10/25/18 07:00 Urine Bilirubin Negative (Negative) 10/25/18 07:00 Urine Urobilinogen Positive (Negative) A 10/25/18 07:00 Ur Leukocyte Esterase Trace (Negative) A 10/25/18 07:00 Urine WBC (Auto) Trace(0-5/hpf) (Absent) 10/25/18 07:00 Urine RBC (Auto) 1+(3-5/hpf) (Absent) A 10/25/18 07:00 Urine Bacteria Absent (Absent) 10/25/18 07:00 Urine Glucose Negative (Negative) 10/25/18 07:00 Intake & Output 10/25/18 10/26/18 10/26/18 22:59 06:59 14:59 Intake Total 1505 596 Balance 1505 596 Intake: IV Fluids 1400 487 NS (0.9%) 1400 487 IVPB 105 109 ABX - ZOSYN 105 109 Oral 0 0 Other: # Voids 0 0 Abx: zosyn Physical exam: abdomen distended mildly, tympanic, minimally tender A/P: 63 M with diverticulitis and reactive ileus 2/2 colonic inflammation, appears to be improving. - WBC declining, patient remains afebrile and pain improved today. Continue zosyn and NPO.
[2018-10-26] MEDS ORDERED: diPHENhydraMINE IV* 50 MG in NS 0.9% 50 ML* 50 ML IVPB ONE (14:53)
[2018-10-26] MEDS ORDERED: methylPREDNISolone 125 MG* 2 ML VIAL IV ONE (14:53)
[2018-10-26] MEDS ORDERED: diPHENhydraMINE IV* 50 MG/ML 1 ml VIAL (BENADRYL) ONE (15:00)
[2018-10-26] MEDS ORDERED: diPHENhydraMINE IV* 50 MG/ML 1 ml VIAL (BENADRYL) IV ONE (15:00)
[2018-10-26] MEDS: Enoxaparin(*) 40 MG/0.4 ML SYR SUBCUT SCH (15:18)
[2018-10-26] MEDS: Ciprofloxacin 400MG IVPREMIX(* 400 MG/200 ML BAG IVPB SCH (15:53)
--- NOTE | 2018-10-26 16:11 | PN ---
Subjective Date of Service: 10/26/18 Interval History: Patient evaluated this morning after being seen up and walking in the hallway. Reports abd pain has improved today as it was previously "more than 10" out of 10 with movement and is not "5 or 6". Also has not been exerpiencing nausea and/ or requiring anti nausea prn medications. Patient has not had a BM or any flatus. Patient reporting itchy rash to upper back. Nurse reporting "draining" blisters to upper back. Patient evaluated. See plan. Objective Active Medications: Acetaminophen (Tylenol Tab*) 975 mg PO Q6H PRN PRN Reason: Fever or Mild Pain Allopurinol (Zyloprim Tab*) 300 mg PO DAILY [facility] Last Admin: 10/26/18 08:37 Dose: 300 mg Amlodipine Besylate (Norvasc Tab*) 10 mg PO DAILY [facility] Last Admin: 10/26/18 08:36 Dose: 10 mg Aspirin (Aspirin Ec Tab*) 81 mg PO DAILY [facility] Last Admin: 10/26/18 08:37 Dose: 81 mg Atorvastatin Calcium (Lipitor*) 40 mg PO BEDTIME [facility] Last Admin: 10/25/18 20:12 Dose: 40 mg Clopidogrel Bisulfate (Plavix Tab*) 75 mg PO DAILY [facility] Last Admin: 10/26/18 08:37 Dose: 75 mg Enoxaparin Sodium (Lovenox(*)) 40 mg SUBCUT Q24H [facility] Last Admin: 10/26/18 15:18 Dose: 40 mg Sodium Chloride (Ns 0.9% 1000 Ml) 1,000 mls @ 75 mls/hr IV PER RATE [facility] Last Admin: 10/26/18 04:18 Dose: 75 mls/hr Ciprofloxacin/Dextrose (Cipro 400 Mg Ivpremix(*)) 400 mg in 200 mls @ 200 mls/ hr IVPB Q12H [facility]; Protocol Last Admin: 10/26/18 15:53 Dose: 200 mls/hr Metronidazole/Sodium Chloride (Flagyl 500 Mg Ivpb*) 500 mg in 100 mls @ 100 mls /hr IVPB Q8H [facility] Magnesium Hydroxide (Milk Of Magnesia Liq*) 30 ml PO Q4H PRN PRN Reason: CONSTIPATION Metoprolol Succinate (Toprol Xl Tab*) 50 mg PO DAILY [facility] Last Admin: 10/26/18 08:37 Dose: 50 mg Ondansetron HCl (Zofran Inj*) 4 mg IV Q6H PRN PRN Reason: NAUSEA Last Admin: 10/25/18 19:40 Dose: 4 mg Pantoprazole Sodium (Protonix Tab*) 40 mg PO DAILY [facility]; Protocol Last Admin: 10/26/18 08:36 Dose: 40 mg Prochlorperazine Edisylate (Compazine Inj*) 5 mg IV Q6H PRN PRN Reason: NAUSEA Last Admin: 10/25/18 23:09 Dose: 5 mg Vital Signs - 8 hr 10/26/18 10/26/18 10/26/18 08:37 10:05 11:15 Temperature 98.0 F Pulse Rate 53 Respiratory 18 17 20 Rate Blood Pressure 144/66 (mmHg) O2 Sat by Pulse 94 Oximetry 10/26/18 10/26/18 10/26/18 11:16 14:25 15:11 Temperature 98.0 F Pulse Rate 53 Respiratory 20 17 18 Rate Blood Pressure 144/66 (mmHg) O2 Sat by Pulse 94 Oximetry 10/26/18 15:26 Temperature Pulse Rate Respiratory 18 Rate Blood Pressure (mmHg) O2 Sat by Pulse Oximetry Oxygen Devices in Use Now: None Appearance: Comfortable, NAD Eyes: No Scleral Icterus Ears/Nose/Mouth/Throat: Clear Oropharnyx, Mucous Membranes Moist, - - No rash, lesions, or blisters Neck: NL Appearance and Movements; NL JVP Respiratory: Symmetrical Chest Expansion and Respiratory Effort, Clear to Auscultation Cardiovascular: NL Sounds; No Murmurs; No JVD, RRR, No Edema Abdominal: - - Tender to palpation, but improved from yesterday. BS continue to be hypoactive. Lymphatic: No Cervical Adenopathy Skin: - - Erythema base with close clustered vesicles across upper back with greater presence on right upper back. Neurological: Alert and Oriented x 3, NL Muscle Strength and Tone Nutrition: - - NPO Result Diagrams: 10/26/18 06:50 10/26/18 06:50 Additional Lab and Data: Laboratory Results - last 24 hr 10/26/18 10/26/18 06:50 06:50 WBC 15.7 H RBC 4.28 Hgb 10.6 L Hct 33 L MCV 77 L MCH 25 L MCHC 32 RDW 18 H Plt Count 449 MPV 7.3 L Neut % (Auto) 86.4 Lymph % (Auto) 3.3 [place] % (Auto) 7.2 Eos % (Auto) 2.7 Baso % (Auto) 0.4 Absolute Neuts (auto) 13.6 H Absolute Lymphs (auto) 0.5 L Absolute Monos (auto) 1.1 H Absolute Eos (auto) 0.4 Absolute Basos (auto) 0.1 Absolute Nucleated RBC 0.0 Nucleated RBC % 0.0 Sodium 138 Potassium 3.3 L Chloride 105 Carbon Dioxide 25 Anion Gap 8 BUN 17 Creatinine 0.84 Est GFR ( Amer) 111.7 Est GFR (Non-Af Amer) 92.3 BUN/Creatinine Ratio 20.2 H Glucose 78 Calcium 8.0 L Magnesium 2.2 Microbiology and Other Data: Microbiology 10/23/18 14:05 Aerobic Blood Culture - Preliminary Blood Venous No Growth Day 3 Anaerobic Blood Culture - Preliminary No Growth Day 3 10/23/18 11:19 Aerobic Blood Culture - Preliminary Blood Venous No Growth Day 3 Anaerobic Blood Culture - Preliminary No Growth Day 3 Assess/Plan/Problems-Billing Assessment: 63 yr old male with pmh of CAD s/p 7 stents, HTN, ETOH abuse in remission, gout , multiple left shoulder surgeries; present to ED lower abd pain. - Patient Problems (1) Rash and nonspecific skin eruption Comment: - Erythematous base with close clustered vesciles on upper back and neck bilaterally. With majority on upper right back. Denies pain, but reports itching. - Rash has been evaluated by my attending. We have stopped any new and possible offending agents including Zosyn, Dilaudid, and Toradol. Patient was given Solumedrol 125 mg IV once and Benadryl 50 mg IV now. - I have requested derm herminia and very much appreciate Dr Blank assistance (2) SBO (small bowel obstruction) Comment: - Cont NPO - Abd Xray and CT consistent with ileus - General surgery consulting. I appreciate their assistance - Cont NPO - Encourage ambulation (3) Diverticulitis Comment: - Per surgery stopped Cipro/Flagyl and start Zosyn previously. Given new rash we have stopped Zosyn and restarted Cipro/Flagyl today - Pain improving. Stopped Dilaudid as it was a new medication since rash and pain is improving. Also stopped Toradol as this was started prior to rash - Repeat CT per surgery; Results consistent with diverticulitis and small note of pericolonic gas, and signs of ileus. Discussed results with Dr Camargo - Cont IVF given NPO status (4) Anemia Comment: - Mixed type; possible chronic disease (given hx of etoh abuse), iron deficiency , and inflammation - Would benefit from repeat studies as outpatient when improved and maybe iron replacement - Stool ordered for blood (5) Hypertension Comment: - Cont Norvasc and Metoprolol - Normotensive currently (6) CAD (coronary artery disease) Comment: - Cont Plavix, ASA, and Metoprolol (7) Gout Comment: - Cont Allopurinol (8) DVT prophylaxis Comment: - Lovenox SQ (9) Full code status Status and Disposition: Inpatient for IV pain control. Discharge home when medically stable. Hopefully 1 to 2 days. Attending: Augustine Mack
[2018-10-26] MEDS ORDERED: KCL 20 MEQ/100 ML IVPREMIX* 20 MEQ/100 ML BAG IV ONE (16:22)
[2018-10-26] MEDS: metroNIDAZOLE IV 500 MG/100ML* 500 MG/100 ML BAG IVPB SCH (17:03)
[2018-10-26] MEDS: Atorvastatin* 40 MG TAB PO SCH (20:44)
[2018-10-26] MEDS ORDERED: diPHENhydraMINE PO* 25 MG PO PRN (21:09)
[2018-10-26] MEDS ORDERED: methylPREDNISolone SOD 40 MG* 1 ML VIAL IV ONE (22:00)
[2018-10-27] MEDS: metroNIDAZOLE IV 500 MG/100ML* 500 MG/100 ML BAG IVPB SCH ×3 (01:05→17:19)
[2018-10-27] MEDS: Ciprofloxacin 400MG IVPREMIX(* 400 MG/200 ML BAG IVPB SCH ×2 (03:57→16:06)
[2018-10-27 07:21] LABS: ABS Lymphocytes 0.5 10^3/ul (1.0-4.8); ABS Monocytes 0.2 10^3/ul (0-0.8); ABS Neutrophils 11.1 10^3/ul (1.5-7.7); Hematocrit 37 % (42-52); Hemoglobin 12.2 g/dL (14.0-18.0); Lymphocyte % 4.3 %; Mean Corpuscular HGB Conc 33 g/dL (31-36); Mean Corpuscular Hemoglobin 25 pg (27-31); Mean Corpuscular Volume 77 fL (80-94); Mean Platelet Volume 7.2 fL (7.4-10.4); Platelet Count 495 10^3/uL (150-450); Red Blood Count 4.86 10^6 /uL (4.18-5.48); Red Cell Distribution Width 18 % (10.5-15); White Blood Count 11.9 10^3/uL (3.5-10.8)
[2018-10-27 07:40] LABS: BUN/Creatinine Ratio 18.4 (8-20); Calcium 8.6 mg/dL (8.6-10.3); EGFR African American 125.3 (>60); EGFR Non-African American 103.6 (>60); Potassium 3.5 mmol/L (3.5-5.0)
--- NOTE | 2018-10-27 08:47 | PN ---
Progress Note - Progress Note Date of Service: 10/27/18 Note: Surgery progress note Subjective: Patient reports feeling better today. Yesterday he said his pain was mild and overnight he required almost no pain medications. He says that he had flatus and a BM this morning around 5am. He feels less distended. He remains afebrile. O: Vital Signs: Temp Pulse Resp BP Pulse Ox 97.5 F 53 16 135/69 94 10/27/18 02:34 10/27/18 02:34 10/27/18 02:34 10/27/18 02:34 10/27/18 02:34 Intake & Output 10/26/18 10/27/18 10/27/18 22:59 06:59 14:59 Intake Total 180 1839 Balance 180 1839 Intake: IV Fluids 1402 NS (0.9%) 1402 IVPB 437 NS (0.9%) 327 Potassium Chloride 110 Oral 180 0 Other: Estimated Void Large # Bowel Movements 0 # Voids 1 Intake & Output 10/26/18 10/27/18 10/27/18 22:59 06:59 14:59 Intake Total 180 1839 Balance 180 1839 Intake: IV Fluids 1402 NS (0.9%) 1402 IVPB 437 NS (0.9%) 327 Potassium Chloride 110 Oral 180 0 Other: Estimated Void Large # Bowel Movements 0 # Voids 1 Laboratory Results - last 24 hr 10/27/18 10/27/18 06:50 06:50 WBC 11.9 H RBC 4.86 Hgb 12.2 L Hct 37 L MCV 77 L MCH 25 L MCHC 33 RDW 18 H Plt Count 495 H MPV 7.2 L Neut % (Auto) 93.5 Lymph % (Auto) 4.3 [place] % (Auto) 1.9 Eos % (Auto) 0.0 Baso % (Auto) 0.3 Absolute Neuts (auto) 11.1 H Absolute Lymphs (auto) 0.5 L Absolute Monos (auto) 0.2 Absolute Eos (auto) 0.0 Absolute Basos (auto) 0.0 Absolute Nucleated RBC 0.0 Nucleated RBC % 0.0 Sodium 140 Potassium 3.5 Chloride 108 Carbon Dioxide 25 Anion Gap 7 BUN 14 Creatinine 0.76 Est GFR ( Amer) 125.3 Est GFR (Non-Af Amer) 103.6 BUN/Creatinine Ratio 18.4 Glucose 174 H Calcium 8.6 Abx: cipro/flagyl Physical exam: Abd- soft, less distended and tympanic, very minimal tenderness A/P: 63 M with diverticulitis and ileus, improving. - Patient's pain has improved significantly, WBC declined to 11.9, remains afebrile and had a BM. Recommend advancing to CLD and then advancing slowly as tolerated.
[2018-10-27] MEDS: Allopurinol TAB* 300 MG PO SCH (08:58)
[2018-10-27] MEDS: Metoprolol Succinate XL TAB* 50 MG PO SCH (08:58)
[2018-10-27] MEDS: amLODIPine TAB* 5 MG PO SCH (08:59)
[2018-10-27] MEDS: Aspirin EC TAB* 81 MG TAB.EC PO SCH (08:59)
[2018-10-27] MEDS: Pantoprazole TAB * 40 MG TAB PO SCH (08:59)
[2018-10-27] MEDS: Clopidogrel TAB* 75 MG PO SCH (08:59)
[2018-10-27] MEDS: predniSONE TAB* 20 MG PO SCH (08:59)
[2018-10-27] MEDS: Hydrocortisone 1% CREAM* 30 GM TUBE TOPICAL SCH ×2 (09:11→21:37)
[2018-10-27] MEDS: NS 0.9% 1000 ML** 1,000 ML IV SCH (13:15)
[2018-10-27] MEDS: Enoxaparin(*) 40 MG/0.4 ML SYR SUBCUT SCH (16:05)
--- NOTE | 2018-10-27 17:36 | PN ---
Subjective Date of Service: 10/27/18 Interval History: Patient seen and examined. No acute overnight events, had BM. Denies abdominal pain. No chest pain, no SOB. No fevers or chills, no further complaints. Objective Active Medications: Acetaminophen (Tylenol Tab*) 975 mg PO Q6H PRN PRN Reason: Fever or Mild Pain Allopurinol (Zyloprim Tab*) 300 mg PO DAILY [facility] Last Admin: 10/27/18 08:58 Dose: 300 mg Amlodipine Besylate (Norvasc Tab*) 10 mg PO DAILY [facility] Last Admin: 10/27/18 08:59 Dose: 10 mg Aspirin (Aspirin Ec Tab*) 81 mg PO DAILY [facility] Last Admin: 10/27/18 08:59 Dose: 81 mg Atorvastatin Calcium (Lipitor*) 40 mg PO BEDTIME [facility] Last Admin: 10/26/18 20:44 Dose: 40 mg Clopidogrel Bisulfate (Plavix Tab*) 75 mg PO DAILY [facility] Last Admin: 10/27/18 08:59 Dose: 75 mg Diphenhydramine HCl (Benadryl Po*) 25 mg PO Q6H PRN PRN Reason: ITCHING Last Admin: 10/26/18 21:55 Dose: 25 mg Enoxaparin Sodium (Lovenox(*)) 40 mg SUBCUT Q24H [facility] Last Admin: 10/27/18 16:05 Dose: 40 mg Hydrocortisone (Hytone Cream 1%*) 1 applic TOPICAL BID [facility] Last Admin: 10/27/18 09:11 Dose: 1 applic Sodium Chloride (Ns 0.9% 1000 Ml) 1,000 mls @ 75 mls/hr IV PER RATE [facility] Last Admin: 10/27/18 13:15 Dose: 75 mls/hr Ciprofloxacin/Dextrose (Cipro 400 Mg Ivpremix(*)) 400 mg in 200 mls @ 200 mls/ hr IVPB Q12H [facility]; Protocol Last Admin: 10/27/18 16:06 Dose: 200 mls/hr Metronidazole/Sodium Chloride (Flagyl 500 Mg Ivpb*) 500 mg in 100 mls @ 100 mls /hr IVPB Q8H [facility] Last Admin: 10/27/18 17:19 Dose: 100 mls/hr Magnesium Hydroxide (Milk Of Magnesia Liq*) 30 ml PO Q4H PRN PRN Reason: CONSTIPATION Metoprolol Succinate (Toprol Xl Tab*) 50 mg PO DAILY [facility] Last Admin: 10/27/18 08:58 Dose: 50 mg Ondansetron HCl (Zofran Inj*) 4 mg IV Q6H PRN PRN Reason: NAUSEA Last Admin: 10/25/18 19:40 Dose: 4 mg Pantoprazole Sodium (Protonix Tab*) 40 mg PO DAILY [facility]; Protocol Last Admin: 10/27/18 08:59 Dose: 40 mg Prednisone (Deltasone Tab*) 60 mg PO DAILY [facility] Last Admin: 10/27/18 08:59 Dose: 60 mg Prochlorperazine Edisylate (Compazine Inj*) 5 mg IV Q6H PRN PRN Reason: NAUSEA Last Admin: 10/25/18 23:09 Dose: 5 mg Vital Signs - 8 hr 10/27/18 10/27/18 11:34 15:18 Temperature 97.2 F 97.5 F Pulse Rate 53 58 Respiratory 17 18 Rate Blood Pressure 139/72 145/74 (mmHg) O2 Sat by Pulse 96 96 Oximetry Oxygen Devices in Use Now: None Appearance: alert, NAD Eyes: No Scleral Icterus, PERRLA Ears/Nose/Mouth/Throat: NL Teeth, Lips, Gums, Mucous Membranes Moist Neck: NL Appearance and Movements; NL JVP, Trachea Midline Respiratory: Symmetrical Chest Expansion and Respiratory Effort, Clear to Auscultation Cardiovascular: NL Sounds; No Murmurs; No JVD, RRR, No Edema Abdominal: - - hypoactive BS, no tenderness, no distension Extremities: No Edema, No Clubbing, Cyanosis Skin: No Rash or Ulcers Neurological: Alert and Oriented x 3, NL Sensation, NL Gait, NL Muscle Strength and Tone Nutrition: Taking PO's, - - tolerating CLD Result Diagrams: 10/27/18 06:50 10/27/18 06:50 Additional Lab and Data: Laboratory Results - last 24 hr 10/26/18 10/26/18 06:50 06:50 WBC 15.7 H RBC 4.28 Hgb 10.6 L Hct 33 L MCV 77 L MCH 25 L MCHC 32 RDW 18 H Plt Count 449 MPV 7.3 L Neut % (Auto) 86.4 Lymph % (Auto) 3.3 [place] % (Auto) 7.2 Eos % (Auto) 2.7 Baso % (Auto) 0.4 Absolute Neuts (auto) 13.6 H Absolute Lymphs (auto) 0.5 L Absolute Monos (auto) 1.1 H Absolute Eos (auto) 0.4 Absolute Basos (auto) 0.1 Absolute Nucleated RBC 0.0 Nucleated RBC % 0.0 Sodium 138 Potassium 3.3 L Chloride 105 Carbon Dioxide 25 Anion Gap 8 BUN 17 Creatinine 0.84 Est GFR ( Amer) 111.7 Est GFR (Non-Af Amer) 92.3 BUN/Creatinine Ratio 20.2 H Glucose 78 Calcium 8.0 L Magnesium 2.2 Microbiology and Other Data: Microbiology 10/23/18 14:05 Aerobic Blood Culture - Preliminary Blood Venous No Growth Day 3 Anaerobic Blood Culture - Preliminary No Growth Day 3 10/23/18 11:19 Aerobic Blood Culture - Preliminary Blood Venous No Growth Day 3 Anaerobic Blood Culture - Preliminary No Growth Day 3 Diagnostic Imaging: Patient Name: SARA GODFREY Medical Record#: [id number] Ordering Physician: Margarette Allen SCRIPT SUPERVISOR Acct.#: [id number] : 1955 Age: 63 Sex: M Location: [address] [place] [address] - MEDICAL Exam Date: 10/24/18 175 ADM Status: ADM IN Order Information: ABDOMEN (COMPLETE) 2 VWS Accession Number: [id number] CPT: 02940 Indication: Small bowel obstruction Flat and upright views of the abdomen demonstrates no free air. There is contrast in the right colon with moderately dilated loops of small bowel. Air-fluid levels are noted. IMPRESSION: Dilated loops of small bowel with contrast in the right colon likely representing partial small bowel obstruction. Assess/Plan/Problems-Billing Assessment: 63 yr old male with pmh of CAD s/p 7 stents, HTN, ETOH abuse in remission, gout , multiple left shoulder surgeries; present to ED lower abd pain. - Patient Problems (1) Diverticulitis Code(s): K57.92 - DVTRCLI OF INTEST, PART UNSP, W/O PERF OR ABSCESS W/O BLEED SNOMED Code(s): 348027557 Comment: - Multiple changes in atbx based on rash profile, continue cipro and flagyl - Per surgery note in AM today, ok to advanced to clears - Tolerated clears all day and had two bowel movements, no abdominal pain; will trial full liquid diet for supper this evening - Appreciate surgical input - Will decrease IVF (2) Gout Code(s): M10.9 - GOUT, UNSPECIFIED SNOMED Code(s): 00181863 Comment: - Cont Allopurinol (3) Hypertension Code(s): I10 - ESSENTIAL (PRIMARY) HYPERTENSION SNOMED Code(s): 64640006 Comment: - Cont Norvasc and Metoprolol (4) SBO (small bowel obstruction) Code(s): K56.609 - UNSP INTESTNL OBST, UNSP TO PARTIAL VERSUS COMPLETE OBST SNOMED Code(s): 842815591 Comment: - Abd Xray and CT consistent with ileus, surgery following - 2 bowel movements since yesterday with positive/hypoactive BS and no abdominal pain - tolerated clears today without issue - Trial FLD (5) CAD (coronary artery disease) Code(s): I25.10 - ATHSCL HEART DISEASE OF [place] CORONARY ARTERY W/O ANG PCTRS SNOMED Code(s): 49490105 Comment: - HX of 7 stents, cont Plavix, ASA, and Metoprolol (6) DVT prophylaxis Code(s): OOL3819 - SNOMED Code(s): 611235111 Comment: - Lovenox SQ (7) Full code status Code(s): Z78.9 - OTHER SPECIFIED HEALTH STATUS SNOMED Code(s): 597719253 Status and Disposition: Inpatient, likely DC to home tomorrow if continued improvement.
[2018-10-27] MEDS: Atorvastatin* 40 MG TAB PO SCH (20:20)
[2018-10-27] MEDS: traMADol TAB* 50 MG PO PRN (21:47)
[2018-10-28] MEDS: metroNIDAZOLE IV 500 MG/100ML* 500 MG/100 ML BAG IVPB SCH ×3 (00:41→17:49)
[2018-10-28] MEDS ORDERED: Ibuprofen TAB* 600 MG PO ONE (00:57)
[2018-10-28] MEDS: Ciprofloxacin 400MG IVPREMIX(* 400 MG/200 ML BAG IVPB SCH ×2 (03:59→16:19)
[2018-10-28] MEDS: Metoprolol Succinate XL TAB* 50 MG PO SCH (08:49)
[2018-10-28] MEDS: Aspirin EC TAB* 81 MG TAB.EC PO SCH (08:50)
[2018-10-28] MEDS: Clopidogrel TAB* 75 MG PO SCH (08:50)
[2018-10-28] MEDS: amLODIPine TAB* 5 MG PO SCH (08:50)
[2018-10-28] MEDS: Pantoprazole TAB * 40 MG TAB PO SCH (08:52)
[2018-10-28] MEDS: predniSONE TAB* 20 MG PO SCH (08:52)
[2018-10-28] MEDS: Allopurinol TAB* 300 MG PO SCH (08:53)
[2018-10-28] MEDS: Hydrocortisone 1% CREAM* 30 GM TUBE TOPICAL SCH ×2 (08:53→20:55)
[2018-10-28] MEDS: NS 0.9% 1000 ML** 1,000 ML IV SCH (11:25)
--- NOTE | 2018-10-28 12:08 | PN ---
Progress Note - Progress Note Date of Service: 10/28/18 Note: Surgery Progress Note S: Patient feels well today. Has minimal pain at baseline. He has pain RLQ pain with BM. Continues to have flatus and BM. He tolerated diet without difficulty but thinks he took CLD too quickly yesterday. O: Vital Signs - 24 hr 10/27/18 10/27/18 10/27/18 15:18 19:10 20:00 Temperature 97.5 F 97.8 F Pulse Rate 58 57 Respiratory 18 20 18 Rate Blood Pressure 145/74 132/66 (mmHg) O2 Sat by Pulse 96 97 Oximetry 10/27/18 10/27/18 10/28/18 21:47 22:53 02:43 Temperature 97.6 F 97.7 F Pulse Rate 54 46 Respiratory 16 18 18 Rate Blood Pressure 125/68 139/71 (mmHg) O2 Sat by Pulse 97 96 Oximetry 10/28/18 10/28/18 04:29 07:27 Temperature 97.5 F Pulse Rate 49 Respiratory 16 16 Rate Blood Pressure 134/74 (mmHg) O2 Sat by Pulse 96 Oximetry Intake & Output 10/27/18 10/28/18 10/28/18 22:59 06:59 14:59 Intake Total 600 2882 Balance 600 2882 Intake: IV Fluids 1160 NS (0.9%) 1160 IVPB 762 NS (0.9%) 762 Oral 600 960 Other: Estimated Void Large Large # Bowel Movements 0 0 # Voids 1 1 Labs: pending Physical exam: Abd- soft, non tender, non distended A/P: 63 M with diverticulitis, ileus, resolving. - Recommend advancing diet to soft and observing at least 24 hours since his ileus only appears to be recently resolving. - FU WBC today - Upon DC please follow up with [facility] after colonoscopy - Surgery will sign off, please feel free to call back as needed
[2018-10-28 14:15] LABS: BUN/Creatinine Ratio 22.1 (8-20); Calcium 8.5 mg/dL (8.6-10.3); EGFR African American 123.5 (>60); Potassium 3.5 mmol/L (3.5-5.0)
[2018-10-28 14:17] LABS: Hematocrit 36 % (42-52); Hemoglobin 11.6 g/dL (14.0-18.0); Mean Corpuscular HGB Conc 32 g/dL (31-36); Mean Corpuscular Hemoglobin 24 pg (27-31); Mean Corpuscular Volume 76 fL (80-94); Mean Platelet Volume 7.2 fL (7.4-10.4); Platelet Count 514 10^3/uL (150-450); Red Blood Count 4.76 10^6 /uL (4.18-5.48); Red Cell Distribution Width 18 % (10.5-15); White Blood Count 17.1 10^3/uL (3.5-10.8)
[2018-10-28 15:09] LABS: ABS Eosinophils 0.1 10^3/ul (0-0.6); ABS Lymphocytes 0.6 10^3/ul (1.0-4.8); ABS Monocytes 0.5 10^3/ul (0-0.8); ABS Neutrophils 15.8 10^3/ul (1.5-7.7); Eosinophil % 0.9 %; Lymphocyte % 3.8 %
[2018-10-28] MEDS: Enoxaparin(*) 40 MG/0.4 ML SYR SUBCUT SCH (16:15)
[2018-10-28] MEDS: cefTRIAXone(*) 1 GM in NS 0.9% 50 ML* 50 ML IVPB SCH (17:20)
--- NOTE | 2018-10-28 18:44 | PN ---
Subjective Date of Service: 10/28/18 Interval History: Patient seen and examined. Complaint of RLQ pain with BM since last night, no complaints of constipation, some loose stools, tolerating FLD withought nausea. No fevers or chills. Dr. Camargo at bedside for follow up. Objective Active Medications: Acetaminophen (Tylenol Tab*) 975 mg PO Q6H PRN PRN Reason: Fever or Mild Pain Allopurinol (Zyloprim Tab*) 300 mg PO DAILY [facility] Last Admin: 10/28/18 08:53 Dose: 300 mg Amlodipine Besylate (Norvasc Tab*) 10 mg PO DAILY [facility] Last Admin: 10/28/18 08:50 Dose: 10 mg Aspirin (Aspirin Ec Tab*) 81 mg PO DAILY [facility] Last Admin: 10/28/18 08:50 Dose: 81 mg Atorvastatin Calcium (Lipitor*) 40 mg PO BEDTIME [facility] Last Admin: 10/27/18 20:20 Dose: 40 mg Clopidogrel Bisulfate (Plavix Tab*) 75 mg PO DAILY [facility] Last Admin: 10/28/18 08:50 Dose: 75 mg Diphenhydramine HCl (Benadryl Po*) 25 mg PO Q6H PRN PRN Reason: ITCHING Last Admin: 10/26/18 21:55 Dose: 25 mg Enoxaparin Sodium (Lovenox(*)) 40 mg SUBCUT Q24H [facility] Last Admin: 10/28/18 16:15 Dose: 40 mg Hydrocortisone (Hytone Cream 1%*) 1 applic TOPICAL BID [facility] Last Admin: 10/28/18 08:53 Dose: 1 applic Sodium Chloride (Ns 0.9% 1000 Ml) 1,000 mls @ 75 mls/hr IV PER RATE [facility] Last Admin: 10/28/18 11:25 Dose: 75 mls/hr Ciprofloxacin/Dextrose (Cipro 400 Mg Ivpremix(*)) 400 mg in 200 mls @ 200 mls/ hr IVPB Q12H [facility]; Protocol Last Admin: 10/28/18 16:19 Dose: 200 mls/hr Metronidazole/Sodium Chloride (Flagyl 500 Mg Ivpb*) 500 mg in 100 mls @ 100 mls /hr IVPB Q8H [facility] Last Admin: 10/28/18 17:49 Dose: 100 mls/hr Ceftriaxone Sodium 1 gm/ (Sodium Chloride) 50 mls @ 200 mls/hr IVPB Q24H [facility] Last Admin: 10/28/18 17:20 Dose: 200 mls/hr Magnesium Hydroxide (Milk Of Magnsergio Liq*) 30 ml PO Q4H PRN PRN Reason: CONSTIPATION Metoprolol Succinate (Toprol Xl Tab*) 50 mg PO DAILY [facility] Last Admin: 10/28/18 08:49 Dose: 50 mg Ondansetron HCl (Zofran Inj*) 4 mg IV Q6H PRN PRN Reason: NAUSEA Last Admin: 10/25/18 19:40 Dose: 4 mg Pantoprazole Sodium (Protonix Tab*) 40 mg PO DAILY [facility]; Protocol Last Admin: 10/28/18 08:52 Dose: 40 mg Prednisone (Deltasone Tab*) 60 mg PO DAILY [facility] Last Admin: 10/28/18 08:52 Dose: 60 mg Prochlorperazine Edisylate (Compazine Inj*) 5 mg IV Q6H PRN PRN Reason: NAUSEA Last Admin: 10/25/18 23:09 Dose: 5 mg Tramadol HCl (Ultram*) 50 mg PO Q8H PRN PRN Reason: PAIN Last Admin: 10/27/18 21:47 Dose: 50 mg Vital Signs - 8 hr 10/28/18 10/28/18 11:26 15:16 Temperature 98.0 F 97.9 F Pulse Rate 49 53 Respiratory 24 18 Rate Blood Pressure 130/66 131/67 (mmHg) O2 Sat by Pulse 96 97 Oximetry Oxygen Devices in Use Now: None Appearance: alert, NAD Eyes: No Scleral Icterus, PERRLA Ears/Nose/Mouth/Throat: NL Teeth, Lips, Gums, Mucous Membranes Moist Neck: NL Appearance and Movements; NL JVP, Trachea Midline Respiratory: Symmetrical Chest Expansion and Respiratory Effort, Clear to Auscultation Cardiovascular: NL Sounds; No Murmurs; No JVD, RRR, No Edema Abdominal: - - soft, non-distended, non-tender Extremities: No Edema, No Clubbing, Cyanosis Skin: No Rash or Ulcers Neurological: Alert and Oriented x 3, NL Sensation, NL Gait Nutrition: Taking PO's, - - full liquid diet Result Diagrams: 10/28/18 13:48 10/28/18 13:48 Additional Lab and Data: Laboratory Results - last 24 hr 10/26/18 10/26/18 06:50 06:50 WBC 15.7 H RBC 4.28 Hgb 10.6 L Hct 33 L MCV 77 L MCH 25 L MCHC 32 RDW 18 H Plt Count 449 MPV 7.3 L Neut % (Auto) 86.4 Lymph % (Auto) 3.3 [place] % (Auto) 7.2 Eos % (Auto) 2.7 Baso % (Auto) 0.4 Absolute Neuts (auto) 13.6 H Absolute Lymphs (auto) 0.5 L Absolute Monos (auto) 1.1 H Absolute Eos (auto) 0.4 Absolute Basos (auto) 0.1 Absolute Nucleated RBC 0.0 Nucleated RBC % 0.0 Sodium 138 Potassium 3.3 L Chloride 105 Carbon Dioxide 25 Anion Gap 8 BUN 17 Creatinine 0.84 Est GFR ( Amer) 111.7 Est GFR (Non-Af Amer) 92.3 BUN/Creatinine Ratio 20.2 H Glucose 78 Calcium 8.0 L Magnesium 2.2 Microbiology and Other Data: Microbiology 10/23/18 14:05 Aerobic Blood Culture - Preliminary Blood Venous No Growth Day 3 Anaerobic Blood Culture - Preliminary No Growth Day 3 10/23/18 11:19 Aerobic Blood Culture - Preliminary Blood Venous No Growth Day 3 Anaerobic Blood Culture - Preliminary No Growth Day 3 Diagnostic Imaging: Patient Name: SARA GODFREY Medical Record#: [id number] Ordering Physician: Margarette Allen NP Acct.#: [id number] : 1955 Age: 63 Sex: M Location: [address] [place] [address] - MEDICAL Exam Date: 10/24/181751 ADM Status: ADM IN Order Information: ABDOMEN (COMPLETE) 2 [facility] Accession Number: [id number] CPT: 15822 Indication: Small bowel obstruction Flat and upright views of the abdomen demonstrates no free air. There is contrast in the right colon with moderately dilated loops of small bowel. Air-fluid levels are noted. IMPRESSION: Dilated loops of small bowel with contrast in the right colon likely representing partial small bowel obstruction. Assess/Plan/Problems-Billing Assessment: 63 yr old male with pmh of CAD s/p 7 stents, HTN, ETOH abuse in remission, gout , multiple left shoulder surgeries; present to ED lower abd pain. - Patient Problems (1) Diverticulitis Code(s): K57.92 - DVTRCLI OF INTEST, PART UNSP, W/O PERF OR ABSCESS W/O BLEED SNOMED Code(s): 678038777 Comment: - Multiple changes in atbx based on rash profile, continue cipro and flagyl - Tolerated full liquids, ok to advance to GI soft per surgery - Continue to monitor stools, bowel sounds normal today - Mild bump in WBC count today, however, urine culture also showed resistent eColi today which may account for elevated count. Remains afebrile (2) Gout Code(s): M10.9 - GOUT, UNSPECIFIED SNOMED Code(s): 94016515 Comment: - Cont Allopurinol (3) Hypertension Code(s): I10 - ESSENTIAL (PRIMARY) HYPERTENSION SNOMED Code(s): 56533191 Comment: - Cont Norvasc and Metoprolol (4) SBO (small bowel obstruction) Code(s): K56.609 - UNSP INTESTNL OBST, UNSP TO PARTIAL VERSUS COMPLETE OBST SNOMED Code(s): 465463512 Comment: - Abd Xray and CT consistent with ileus, surgery following - Ileus resolved/bowel function returned, diet advance as per surgery (5) CAD (coronary artery disease) Code(s): I25.10 - ATHSCL HEART DISEASE OF UTE CORONARY ARTERY W/O ANG PCTRS SNOMED Code(s): 99089005 Comment: - HX of 7 stents, cont Plavix, ASA, and Metoprolol (6) Rash and nonspecific skin eruption Code(s): R21 - RASH AND OTHER NONSPECIFIC SKIN ERUPTION SNOMED Code(s): 524165605 Comment: - Upper back, resolving, likely 2/2 antibiotics vs dilaudid - Continue topical steroid PRN, improving (7) UTI (urinary tract infection) Comment: - Culture returned / with eColi, resistant to cipro - Will start ceftriaxone today - Did receive zosyn at admission, however, would not have received enough to treat and this may account for elevated WBC count today (8) DVT prophylaxis Code(s): RON8626 - SNOMED Code(s): 063796227 Comment: - Lovenox SQ (9) Full code status Code(s): Z78.9 - OTHER SPECIFIED HEALTH STATUS SNOMED Code(s): 821037310 Status and Disposition: Inpatient. DC in AM.
[2018-10-28] MEDS: Atorvastatin* 40 MG TAB PO SCH (20:55)
[2018-10-29] MEDS: metroNIDAZOLE IV 500 MG/100ML* 500 MG/100 ML BAG IVPB SCH ×3 (00:33→17:47)
[2018-10-29] MEDS: Ciprofloxacin 400MG IVPREMIX(* 400 MG/200 ML BAG IVPB SCH ×2 (03:19→16:23)
[2018-10-29] MEDS: traMADol TAB* 50 MG PO PRN (03:32)
[2018-10-29] MEDS: NS 0.9% 1000 ML** 1,000 ML IV SCH (06:34)
[2018-10-29 08:40] LABS: Hematocrit 36 % (42-52); Hemoglobin 11.7 g/dL (14.0-18.0); Mean Corpuscular HGB Conc 32 g/dL (31-36); Mean Corpuscular Hemoglobin 25 pg (27-31); Mean Corpuscular Volume 77 fL (80-94); Mean Platelet Volume 7.4 fL (7.4-10.4); Platelet Count 517 10^3/uL (150-450); Red Blood Count 4.73 10^6 /uL (4.18-5.48); Red Cell Distribution Width 18 % (10.5-15); White Blood Count 15.6 10^3/uL (3.5-10.8)
[2018-10-29] MEDS: Aspirin EC TAB* 81 MG TAB.EC PO SCH (09:25)
[2018-10-29] MEDS: Metoprolol Succinate XL TAB* 50 MG PO SCH (09:25)
[2018-10-29] MEDS: Pantoprazole TAB * 40 MG TAB PO SCH (09:25)
[2018-10-29] MEDS: Clopidogrel TAB* 75 MG PO SCH (09:25)
[2018-10-29] MEDS: amLODIPine TAB* 5 MG PO SCH (09:25)
[2018-10-29] MEDS: Allopurinol TAB* 300 MG PO SCH (09:25)
[2018-10-29] MEDS: predniSONE TAB* 20 MG PO SCH (09:26)
[2018-10-29 09:29] LABS: ABS Eosinophils 0.6 10^3/ul (0-0.6); ABS Lymphocytes 1.7 10^3/ul (1.0-4.8); ABS Monocytes 1.8 10^3/ul (0-0.8); ABS Neutrophils 11.5 10^3/ul (1.5-7.7); Eosinophil % 3.7 %; Lymphocyte % 10.7 %
[2018-10-29] MEDS: Hydrocortisone 1% CREAM* 30 GM TUBE TOPICAL SCH (09:32)
[2018-10-29 16:18] VITALS: BP 144/76
[2018-10-29] MEDS: Enoxaparin(*) 40 MG/0.4 ML SYR SUBCUT SCH (16:23)
[2018-10-29] MEDS: cefTRIAXone(*) 1 GM in NS 0.9% 50 ML* 50 ML IVPB SCH (17:26)
--- NOTE | 2018-10-30 08:18 | DS ---
CC: Dr. Cuauhtemoc Acosta; Dr. Erin Camargo, surgical service; Dr. Naresh Cosby.* DISCHARGE SUMMARY: DATE OF ADMISSION: 10/23/18. DATE OF DISCHARGE: 10/29/18. PRIMARY CARE PROVIDER: Dr. Cuauhtemoc Acosta. MY ATTENDING FOR TODAY: Dr. Mack.* (DICTATED BY VERONICA CRUMP, JENNA ) HOSPITAL COURSE: Please refer to admitting H and P on 10/23/18, but in short, Mr. Juarez is a 63-year-old male with a history of coronary artery disease with 7 stents, hypertension, history of alcohol abuse, multiple bouts of diverticulitis. Patient reported to the emergency department with reports of lower abdominal cramping and pain. Patient states he was taking ibuprofen, which helped somewhat. He was also taking Pepto-Bismol. He also had some report of anorexia, but denied any nausea or vomiting. He also had some associated constipation for 48 hours. Patient states that his pain began to get progressively worse, but denied any further symptoms. When his pain became somewhat unbearable at home, he came to the emergency department for evaluation. He had CT of the abdomen and pelvis with contrast. He also had some leukocytosis with a white count of 23. CT of the abdomen showed recurrence of diverticulitis without perforation and no abscess. He received IV fluids, IV pain medication and antibiotics. He was started on IV Cipro and Flagyl. He was kept NPO. Home medications were continued for his hypertension and coronary artery disease. Patient began to have an increasing pain over the next 36 hours. Repeat imaging in the form of an x-ray was obtained, which revealed possibility of a partial small bowel obstruction. Surgical consult was placed and a repeat CT scan was obtained. The repeat CT scan did not show any acute changes in terms of his diverticulitis. However, there was a small focus of pericolonic gas noted in the mesentery that did not appear to be intraluminal or consistent with a perforation and there was no large free intraperitoneal gas. There was diffuse distension of the small bowel, however without dilatation or transition point suggestive of an ileus. Patient remained NPO and again was seen by Dr. Erin Camargo of Surgery who recommended continued pain management as needed, continued antibiotics. His white blood cell count was improving. He was actually changed to Zosyn at that point and was able to ambulate. His pain was better controlled somewhere around . Patient had an eruption of rash that may have been attributed to the change in antibiotics. The rash did not start until he was changed to Zosyn, had some draining blisters and erythema to the upper back. He was given Benadryl as needed, topical steroids and placed back on Cipro and Flagyl. It was also questionable whether Dilaudid or Toradol were possible culprit. At that point, patient was taken off all of these medications. Supportive care provided. He also received some IV Solu-Medrol and IV Benadryl. Surgery advanced the patient's diet on 10/27/18 to clear liquids, which he tolerated for the entire day and then went to full liquid diet later on that night. Patient did have a bowel movement in between and so it appeared his ileus was resolving. His pain had decreased significantly. His rash was responding to Benadryl and steroids and overall the patient began to feel better. On the , he did have a positive urine culture, which was surprising. The patient did not initially have any urinary complaints. A urine culture was obtained in the ER initially. Urine culture was positive for E. coli. It was noted that his susceptibility profile showed resistance to ciprofloxacin. It was susceptible to Zosyn; however, the patient only received 2 doses of Zosyn before his allergic reaction. I placed the patient on ceftriaxone on 10/28/18. He has received 2 doses of the ceftriaxone. On the morning of 10/29/18, he was reporting some urinary frequency and some burning since overnight, which is consistent with the findings now on his urine culture. Patient was seen again by Surgery today. He does not have any leukocytosis. He is very anxious to return home. His diet was advanced to GI soft, which he is tolerating. He has had multiple bowel movements. His ileus is resolved. He is still having some diffuse abdominal crampiness; however, with the severity of his diverticulitis and concurrent urinary tract infection, it is not surprising that he is still having some abdominal pains now and again, but he certainly does not have an acute abdomen. He does not have any fever. He does not have any guarding or rigidity and overall does seem to be improved. The patient is very adamant about wanting to be discharged home this evening. I have agreed to discharge the patient home on antibiotics to cover him for his urinary tract infection and continue the antibiotic treatment for 2 weeks for his diverticulitis. Patient today denies any fever, fatigue, or chills. No chest pain. No shortness of breath. No nausea, no vomiting. He does have some intermittent diffuse abdominal and suprapubic pain and some urinary frequency, burning sensation sometimes with urination, but it is improved throughout the day today. He is having bowel movements sometimes watery but mostly formed. No arthralgias or myalgias and no further constitutional complaints at this time. PHYSICAL EXAMINATION: The patient is alert and in no acute distress. Vital signs are; blood pressure 144/77, heart rate 51, respiratory rate 20, O2 saturation 97% on room air with a temperature of 97.8. HEENT: The patient is atraumatic, normocephalic. PERRLA. Nonicteric sclerae. Oral mucosa is moist. Tongue is midline. Neck: Supple. Nontender. No JVD noted. No carotid bruits auscultated. Cardiovascular: S1, S2 present. No murmurs, gallops, or rubs noted. Rate and rhythm are regular. Lungs are clear bilaterally to auscultation with no wheezing, rhonchi, or rales. Abdomen is soft, nontender, and nondistended. Positive bowel sounds in all 4 quadrants. : Deferred. Musculo-skeletal: There was no clubbing, no cyanosis, and no edema. He has positive distal pulses palpable. Full range of motion. Steady gait. Neurologic: Grossly intact with no focal deficits. Psychiatric: He is cooperative and appropriate. LABORATORY DATA: WBC 15.6, RBC is 4.73, hemoglobin of 11.7, hematocrit 36, platelets 517. Sodium 139, potassium 3.5, chloride 107, BUN 17, creatinine 0.77 , glucose 139, calcium 8.5. Urinalysis: Holly, cloudy urine, pH 5, specific gravity 1.027, protein 1+, negative for ketones, negative blood, negative nitrites, negative bilirubin. Positive urobilinogen, trace leukocyte esterase, trace wbc's, 1+ rbc, absent bacteria, negative for urine glucose. Microbiology ; urine culture with E. coli with colony count of 10,000. Susceptibility with good coverage with ceftriaxone. IMAGING: CAT scan and x-rays as noted previously in this report. DISPOSITION: Patient will be discharged to home. He is in stable condition. FOLLOWUP: The patient has been instructed to follow up with his primary care provider, Dr. Cuauhtemoc Acosta in [address] Naresh Cosby of GI. Surgery recommends that the patient has a colonoscopy prior to any surgical intervention. Dr. Erin Camargo of Surgery in approximately one month to discuss possible elective intervention for his diverticulitis. MEDICATIONS FOR DISCHARGE: Include: 1. Aspirin 81 mg daily. 2. Amlodipine 10 mg daily. 3. Lynn-3 fatty acid 1200 mg p.o. daily. 4. Nitroglycerin 0.4 mg subcu q.5 minutes as needed. 5. Aleve 650 mg daily as needed. 6. Metoprolol succinate XL 50 p.o. daily. 7. Allopurinol 300 mg p.o. daily. 8. Prevacid 30 mg p.o. daily. 9. Plavix 75 mg daily. 10. Atorvastatin 40 mg daily. New medications include: 1. Flagyl 500 mg p.o. t.i.d. x14 days. 2. Ciprofloxacin 250 mg p.o. b.i.d. x14 days. 3. Cefuroxime 500 mg p.o. b.i.d. x5 more days. DISCHARGE DIAGNOSES: 1. Acute diverticulitis. 2. Urinary tract infection with Escherichia coli. 3. Ileus, now resolved. 4. History of coronary artery disease, stable. 5. Hypertension, stable. 6. Arthritis, stable. 7. History of gout, stable. 8. History of gastroesophageal reflux disease, stable. 9. Hyperlipidemia, stable. Disposition again, discharge to home in stable condition. All questions were answered. Patient stated his understanding of his medications, followups, at the time of discharge. TIME SPENT: Forty five minutes developing discharge plan of care. VERONICA CRUMP, JENNA [id number]/[facility] #: [id number] YENI
== END 2018-10-29 20:10 | disposition home or self-care (01) | DRG 244 ==
LOC: ED 10:58 → MED 15:30
PROVIDERS: ADMIT Internal Medicine; ATTEND Internal Medicine
DX: K57.32 Diverticulitis of large intestine without perforation or abscess without bleeding (principal); K56.7 Ileus, unspecified; N39.0 Urinary tract infection, site not specified; I25.10 Atherosclerotic heart disease of native coronary artery without angina pectoris; G47.33 Obstructive sleep apnea (adult) (pediatric); E66.9 Obesity, unspecified; E78.00 Pure hypercholesterolemia, unspecified; I10 Essential (primary) hypertension; K59.00 Constipation, unspecified; M19.90 Unspecified osteoarthritis, unspecified site; E78.5 Hyperlipidemia, unspecified; K21.9 Gastro-esophageal reflux disease without esophagitis; M10.9 Gout, unspecified; B96.20 Unspecified Escherichia coli [E. coli] as the cause of diseases classified elsewhere; L27.0 Generalized skin eruption due to drugs and medicaments taken internally; T36.8X5A Adverse effect of other systemic antibiotics, initial encounter; Y92.239 Unspecified place in hospital as the place of occurrence of the external cause; Z16.23 Resistance to quinolones and fluoroquinolones; Z82.49 Family history of ischemic heart disease and other diseases of the circulatory system; Z88.6 Allergy status to analgesic agent; Z95.5 Presence of coronary angioplasty implant and graft; Z72.89 Other problems related to lifestyle; Z87.891 Personal history of nicotine dependence; Z68.39 Body mass index [BMI] 39.0-39.9, adult; Z80.51 Family history of malignant neoplasm of kidney; Z79.82 Long term (current) use of aspirin; Z79.02 Long term (current) use of antithrombotics/antiplatelets
CPT/HCPCS: 36415; 74019; 74177; 80048; 80053; 81003; 81015; 82270; 82728; 83540; 83550; 83605; 83690; 83735; 84443; 84484; 85025; 85610; 85730; 86140; 87040; 87077; 87086; 87186; 93005; 99284; A9270-GY; J0696; J0744; J0780; J1170; J1200; J1650; J1885; J2270; J2405; J2543; J2920; J2930; J3475; J3480; J3490; J7512; Q9967

== ENCOUNTER 2018-11-07 11:40 | Inpatient (IN) | payer BC ==
--- OUTSIDE RECORDS SUMMARY | 2018-11-07 11:47 | XMS REPORT | Continuity of Care Document ---
:1955 External Reference #:[id number] Author Name Samantha Mota Care Team Providers Name Role Phone Cuauhtemoc Acosta MD Primary Care Physician Unavailable Payers Date Identification Numbers Payment Provider Subscriber Effective: 2015 Policy Number: [id number] BS Facets Delmar Juarez PayID: [id number] [address] [address] [place] [address] Problems Active Problems Provider Date Full thickness rotator cuff tear Antwan Fitch M.D. Onset: 10/30/2015 Atherosclerotic heart disease of Andre Morris M.D., [facility], Onset: 2015 [place] coronary artery without angina FASNC pectoris Essential hypertension Andre Morris M.D., [facility], Onset: 07/23/2017 FASNC Chest pain Andre Morris M.D., [facility], Onset: 06/16/2017 FASNC Family History Date Family Member(s) Observation Comments General Heart Disease General Hypertension General Stroke Father due to Sepsis () Mother due to healthy () Siblings 3 Social History Type Date Description Comments Sex Unknown Marital Status Single with significant other for 25+ years Lives With 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 ETOH Use Occasionally consumes former 12-13 beers a alcohol day or every other Tobacco Use Start: Unknown Patient is a former End: Unknown smoker Smoking Status Reviewed: 11/03/18 Patient is a former smoker Exercise Does not exercise Type/Frequency Allergies, Adverse Reactions, Alerts Active Allergies Reaction Severity Comments Date Oxycodone panic attack 09/20/2015 Morphine blisters/rash 11/03/2018 Medications Active Medications SIG Qnty Indications Ordering Date Provider Aspirin 81 Low Dose 1 by mouth every Andre Jordan 07/23/2017 81mg day Yo Morris, Chewtabs FACC, FASNC Metoprolol Succinate 1 by mouth every 90tabs R07.9 Andreameena Ortega 06/16/2017 ER day Yo Morris, 50mg Tablets ER 24HR FACC, FASNC Lansoprazole 1 by mouth every M75.122 Eric, 05/17/2017 30mg day Joanie, HERITAGE CONSULTANT Capsules Allopurinol 1 by mouth every Cuauhtemoc Acosta, 12/16/2016 300mg Tablets day Am Clopidogrel Bisulfate 1 by mouth every M75.122 Cuauhtemoc Acosta, 2016 day Am MD 75mg Tablets Atorvastatin Calcium 1 by mouth every M75.122 Cuauhtemoc Acosta, 07/28/2016 40mg day Am MD Tablets Amlodipine Besylate 1 by mouth every M75.122 Cuauhtemoc Acosta, 07/01/2016 5mg day Am MD Tablets Probiotic 1 by mouth every Unknown Capsules day Metronidazole one tablet by Unknown 500mg mouth 3 times Tablets daily Cipro take one tab Unknown 250mg Tablets twice a day Cefuroxime Axetil 1 tabs by mouth Unknown 500mg twice a day Tablets Nitrostat one sl q5min up 45tabs Andreameena Ortega 0.3mg Tablets to 3 doses as Yo Morris, Sub needed call 911 [facility], [facility] if chest pain persists after 3. Fish Oil Double 2 by mouth every M75.122 Unknown Strength + Vitamin D day Am 1000Units 1200mg Capsules History Medications No Active Medications Unknown 10/04/2015 - 01/01/2016 Keflex 1 by mouth qid 40caps Antwan Fitch, 09/23/2015 - 500mg Capsules for 10 days M.DShruthi 10/03/2015 Aspir-81 1 by mouth Unknown - 81mg Tablets DR every day 03/01/2016 Ibuprofen 1 by mouth M75.122 Unknown - 600mg Tablets three times a 07/22/2017 day as needed ( rarely taken for lower back pain) Aleve as needed M75.122 Unknown - 220mg Tablets 01/31/2016 Aspirin Coated 1 by mouth Unknown - 325mg every day Am 07/23/2017 Tablets Acetaminophen 2 tablets every Unknown - 500mg 6 hours as Unknown Tablets needed for pain Aleve 2 tablet po Unknown - 220mg Tablets every morning ( 07/22/2017 started taking every day for 5 years ) Medications Administered in Office Medication SIG Qnty Indications Ordering Provider Date Technetium TC 99M Ica Nuclear Schedule 07/15/2017 Tetrofosmin, Per Unit Dose Up To 40 Millicuries Injection Inj, Regadenoson, 0.1 MG Matt Sorto M.D. 07/12/2017 Injection Technetium TC 99M Matt Sorto M.D. 07/12/2017 Tetrofosmin, Per Unit Dose Up To 40 Millicuries Injection Inj, Regadenoson, 0.1 MG Andre Morris M.D., 03/02/2016 Injection ISATU CASTELLANOS Technetium TC 99M Andre Morris M.D., 03/02/2016 Tetrofosmin, Per Unit Dose ISATU CASTELLANOS Up To 40 Millicuries Injection Depomedrol 40MG Antwan Fitch M.D. 01/01/2016 Injection Vital Signs Date Vital Result Comment 11/03/2018 10:24am Height 67 inches 5'7" Weight 233.00 lb Heart Rate 72 /min BP Systolic Sitting 112 mmHg BP Diastolic Sitting 72 mmHg Respiratory Rate 18 /min Body Temperature 97.6 F BMI (Body Mass Index) 36.5 kg/m2 07/23/2017 9:43am Height 67 inches 5'7" Weight 249.00 lb without shoes Heart Rate 56 /min BP Systolic Sitting 130 mmHg Lue lg cuff BP Diastolic Sitting 84 mmHg Lue lg cuff BP Systolic Standing 122 mmHg Lue lg cuff BP Diastolic Standing 70 mmHg Lue lg cuff Respiratory Rate 16 /min BMI (Body Mass Index) 39.0 kg/m2 Ejection Fraction 55-60% date 07/20/17 ECHO 06/16/2017 8:54am Height 67 inches 5'7" Weight 249.00 lb with out boots Heart Rate 70 /min BP Systolic Sitting 110 mmHg Rue lg cuff BP Diastolic Sitting 72 mmHg Rue lg cuff BP Systolic Standing 110 mmHg Rue lg cuff BP Diastolic Standing 64 mmHg Rue lg cuff Respiratory Rate 16 /min BMI (Body Mass Index) 39.0 kg/m2 Ejection Fraction 60-65% date 02/17/2016 ECHO 09/10/2016 10:53am Height 69 inches 5'9" Weight 242.00 lb Heart Rate 68 /min BP Systolic 158 mmHg BP Diastolic 92 mmHg Respiratory Rate 18 /min Body Temperature 98.4 F BMI (Body Mass Index) 35.7 kg/m2 04/22/2016 3:40pm Height 69 inches 5'9" Weight 248.00 lb Pain Level 0 BMI (Body Mass Index) 36.6 kg/m2 03/04/2016 8:13am Height 69 inches 5'9" Weight 243.00 lb no shoes Heart Rate 76 /min BP Systolic Sitting 146 mmHg LA lrg cuff BP Diastolic Sitting 92 mmHg LA lrg cuff BP Systolic Standing 154 mmHg LA lrg cuff BP Diastolic Standing 94 mmHg LA lrg cuff Respiratory Rate 18 /min BMI (Body Mass Index) 35.9 kg/m2 Ejection Fraction 60-65% 02/17/16 01/13/2016 12:33pm Height 69 inches 5'9" Weight 239.00 lb w/o shoes Heart Rate 76 /min BP Systolic 170 mmHg LA lg cuff BP Diastolic 100 mmHg LA lg cuff BP Systolic Sitting 138 mmHg Ra lg cuff BP Diastolic Sitting 90 mmHg Ra lg cuff BP Systolic Standing 148 mmHg Ra lg cuff BP Diastolic Standing 80 mmHg Ra lg cuff BP Systolic Lying Down 140 mmHg LA lg cuff BP Diastolic Lying Down 80 mmHg LA lg cuff BMI (Body Mass Index) 35.3 kg/m2 Ejection Fraction 55-60% Echo 11/30/11 10/30/2015 8:42am Height 69 inches 5'9" BP Systolic Sitting 128 mmHg BP Diastolic Sitting 70 mmHg Respiratory Rate 16 /min Pain Level 5 with movement 10/04/2015 3:45pm Height 69 inches 5'9" Heart Rate 68 /min Respiratory Rate 16 /min Body Temperature 99.4 F Pain Level 0 09/20/2015 12:17pm Height 69 inches 5'9" Respiratory Rate 16 /min Body Temperature 98.7 F Pain Level 5 Results Test Date Facility Test Result H/L Range Note Laboratory test 09/28/2015 [facility] Lyme Disease Negative N Negative [address] [place] [address] [phone] Serologic response to B. burgdorferi infection is not detected, but cannot rule out early infection during which low or undetectable antibody levels to B. burgdorferi may be present. If clinically indicated, a new serum specimen should be submitted in 7-14 days. Test Performed by: [address] [address] Manager Group Home: Abdi Bosch II, M.D., Ph.D. Procedures Date Code Description Status 07/20/2017 60687 ECHO Transthoracic, Real-Time 2D With Doppler And Color Completed Flow 07/20/2017 26812 ECHO Transthoracic, Real-Time 2D With Doppler And Color Completed Flow 07/12/2017 54322 Stress Test Completed 07/12/2017 69192 Myocardial Perfusion Imaging Tomographic (Spect) Completed Multiple Studies 06/16/2017 35351 EKG Tracing & Interpretation Completed 05/25/2016 [id number] Colonoscopy Completed 03/02/2016 27349 Stress Test Completed 03/02/2016 72932 Myocardial Perfusion Imaging Tomographic (Spect) Completed Multiple Studies 02/17/2016 99979 ECHO Transthoracic, Real-Time 2D With Doppler And Color Completed Flow 01/13/2016 29372 EKG Tracing & Interpretation Completed 01/01/2016 15896 Inject/Drain Joint/Bursa Major W/O US Completed 09/21/2015 40292 Arthroscopy Shoulder Debridement Extensive Completed 09/20/2015 11382 EKG, Interpretation Only Completed 09/20/2015 22293 Inject/Drain Joint/Bursa Major W/O US Completed 07/16/2013 22525 EKG, Interpretation Only Completed 07/15/2013 34181 EKG, Interpretation Only Completed Encounters Type Date Location Provider Dx Diagnosis Office Visit 10/28/2018 Cooper Camargo MD K57.30 [facility] 7:[facility]a [facility] w/o perforation or abscess w/o bleeding K56.7 Ileus, unspecified Office Visit 10/27/2018 7:00a Cooper Camargo K57.30 [facility] w/o perforation or abscess w/o bleeding K56.7 Ileus, unspecified Office Visit 10/26/2018 7:00a Cooper Camargo K57.30 [facility] w/o perforation or abscess w/o bleeding K56.7 Ileus, unspecified Office Visit 10/25/2018 7:00a Surgical Erin Camargo, K57.30 [facility] w/o perforation or abscess w/o bleeding K56.7 Ileus, unspecified Office Visit 07/23/2017 10:15a [facility] Andreameena Ortega R07.9 Chest pain, Of [facility] Morris M.D., unspecified FACC, FASNC I10 Essential (primary) hypertension Office Visit 06/16/2017 9:15a [facility] Andre Ortega R07.9 Chest pain, Of [facility] Morris M.D., unspecified FACC, FASNC Office Visit 09/10/2016 11:00a Surgical Riky N49.2 [facility] MD Carly, disorders of FACS scrotum Office Visit 04/22/2016 3:45p Orthopedic Antwan M75.122 [facility], rotatr-cuff C.M.A. M.D. tear/ruptr of left shoulder, not trauma Office Visit 03/04/2016 8:45a [facility] Andre Ortega I25.10 [facility] Morris M.D., disease of [place] FACC, FASNC coronary artery w/o ang pctrs Office Visit 01/13/2016 1:00p [facility] Andre Ortega I25.118 [facility] Morris M.D., disease of [place] FACC, FASNC cor art w oth ang pctrs Office Visit 01/01/2016 8:00a Orthopedic Antwan M19.012 [facility] re[facility] Fitch, C.M.A. M.D. left shoulder Z47.89 Encounter for other orthopedic aftercare Office Visit 09/22/2015 10:50a [facility] Sol Sewell, M00.9 [facility] Assoc,pc N.P. arthritis, Hospitalists unspecified I25.119 Athscl heart disease of [place] cor art w unsp ang pctrs E66.09 Other obesity due to excess calories Office Visit 09/21/2015 10:49a [place] Sewell, M00.9 [facility]oc,pc N.P. arthritis, Hospitalists unspecified I25.119 Athscl heart disease of [place] cor art w unsp ang pctrs E66.09 Other obesity due to excess calories I10 Essential (primary) hypertension [facility] Other specified Assoc,pratibha Alvarez, HERITAGE CONSULTANT soft tissue Hospitalists disorders I25.119 Athscl heart disease of [place] cor art w unsp ang pctrs E66.09 Other obesity due to excess calories I10 Essential (primary) hypertension Office Visit 09/20/2015 11:00a Orthopedic Jessica Cale, M25.512 Pain in left Services Of C.M.A. M.D. shoulder M86.112 Other acute osteomyelitis, left shoulder Office Visit 07/17/2013 2:54p [facility] 291.81 Alcoholic Assoc,pratibha Obrien M.D. Withdrawal Hospitalists 300.00 Anxiety State Unspec Office Visit 07/15/2013 2:52p [facility] 300.00 Anxiety State Assoc,pratibha Obrien M.D. Unspec Hospitalists 291.81 Alcoholic Withdrawal Plan of Treatment Future Appointment(s):11/16/2018 9:15 am - Andre Morris M.D., JASMIN, ISATU at [facility]11/03/2018 - Cain Whitmore MD, FACSK57.32 Diverticulitis of large intestine without perforation or absReferral:Andre Morris MD, FACLazaro, ISATU, Cardiovsclr DiseaseFollow up:operating room
--- OUTSIDE RECORDS SUMMARY | 2018-11-07 11:47 | XMS REPORT | Continuity of Care Document ---
:1955 External Reference #:[id number] Author Name Bianka Guerrero Care Team Providers Name Role Phone Cuauhtemoc Acosta MD Primary Care Physician Unavailable Payers Date Identification Numbers Payment Provider Subscriber Effective: 2015 Policy Number: [id number] BS Facets Delmar Juarez PayID: [id number] [address] [address] [place] [address] Problems Active Problems Provider Date Full thickness rotator cuff tear Antwan Fitch M.D. Onset: 10/30/2015 Atherosclerotic heart disease of Andre Morris M.D., [facility], Onset: 2015 [place] coronary artery without angina FASNC pectoris Essential hypertension Andre Morris M.D., [facility], Onset: 07/23/2017 FASNC Chest pain Andre Morris M.D., [facility], Onset: 06/16/2017 FASNC Family History Date Family Member(s) Observation Comments General Heart Disease General Hypertension General Stroke Father due to Sepsis () Mother due to healthy () Siblings 3 Social History Type Date Description Comments Sex Unknown Marital Status Single with significant other for 25+ years Lives With 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 ETOH Use Occasionally consumes former 12-13 beers a alcohol day or every other Tobacco Use Start: Unknown Patient is a former End: Unknown smoker Smoking Status Reviewed: 11/07/18 Patient is a former smoker Exercise Does not exercise Type/Frequency Allergies, Adverse Reactions, Alerts Active Allergies Reaction Severity Comments Date Oxycodone panic attack 09/20/2015 Morphine blisters/rash 11/03/2018 Medications Active Medications SIG Qnty Indications Ordering Date Provider Aspirin 81 Low Dose 1 by mouth every Andre Jordan 07/23/2017 81mg day Yo Morris, Chewtabs FACC, FASNC Metoprolol Succinate 1 by mouth every 90tabs R07.9 Andre Jordan 06/16/2017 ER day Yo Morris, 50mg Tablets ER 24HR FACC, FASNC Lansoprazole 1 by mouth every M75.122 Eric, 05/17/2017 30mg day Joanie, PLANT SPECIALIST Capsules Allopurinol 1 by mouth every Cuauhtemoc [...] as Yo Morris, Sub needed call 911 [facility], [facility] if chest pain persists after 3. [...] 0.1 MG Andre Morris M.D., 03/02/2016 Injection FACISATU Willis Technetium TC 99M Andre Morris M.D., 03/02/2016 Tetrofosmin, Per Unit Dose MEMOCISATU Up To 40 Millicuries Injection Depomedrol 40MG Antwan Fitch M.D. 01/01/2016 Injection Vital Signs Date Vital Result Comment 11/07/2018 11:05am Heart Rate 72 /min BP Systolic 132 mmHg BP Diastolic 84 mmHg Respiratory Rate 16 /min Body Temperature 97.0 F 11/03/2018 10:24am Height 67 inches 5'7" Weight [...] Result H/L Range Note Laboratory test 09/28/2015 [facility] Lyme Disease Negative N Negative [address] Serology [place] [id number] [phone] 1 Serologic response to B. burgdorferi infection is not detected, but cannot rule out early infection during which low or undetectable antibody levels to B. burgdorferi may be present. If clinically indicated, a new serum specimen should be submitted in 7-14 days. Test Performed by: [place] [address] Counter Molder: Abdi Bosch II, M.D., Ph.D. Procedures Date Code Description Status 07/20/2017 97302 ECHO Transthoracic, Real-Time 2D With Doppler And Color Completed Flow 07/20/2017 92050 ECHO Transthoracic, Real-Time 2D With Doppler And Color Completed Flow 07/12/2017 32881 Stress Test Completed 07/12/2017 53555 Myocardial Perfusion Imaging Tomographic (Spect) Completed Multiple Studies 06/16/2017 61123 EKG Tracing & Interpretation Completed 05/25/2016 [id number] Colonoscopy Completed 03/02/2016 66694 Stress Test Completed 03/02/2016 72607 Myocardial Perfusion Imaging Tomographic (Spect) Completed Multiple Studies 02/17/2016 13992 ECHO Transthoracic, Real-Time 2D With Doppler And Color Completed Flow 01/13/2016 43823 EKG Tracing & Interpretation Completed 01/01/2016 63079 Inject/Drain Joint/Bursa Major W/O US Completed 09/21/2015 13124 Arthroscopy Shoulder Debridement Extensive Completed 09/20/2015 68960 EKG, Interpretation Only Completed 09/20/2015 32884 Inject/Drain Joint/Bursa Major W/O US Completed 07/16/2013 08526 EKG, Interpretation Only Completed 07/15/2013 11413 EKG, Interpretation Only Completed Encounters Type Date Location Provider Dx Diagnosis Office Visit 11/03/2018 Surgical Cain Whitmore, K57.32 [facility] 10:15a [facility] w/o perforation or abscess w/o bleeding Office Visit 10/28/2018 Surgical Erin Camargo MD K57.30 [facility] 7:00a [facility] w/o perforation or abscess w/o bleeding K56.7 Ileus, unspecified Office Visit 10/27/2018 7:00a Surgical Erin Camargo K57.30 [facility] w/o perforation or abscess w/o bleeding K56.7 Ileus, unspecified Office Visit 10/26/2018 7:00a Surgical Erin Camargo K57.30 [facility] MD w/o perforation or abscess w/o bleeding K56.7 Ileus, unspecified Office Visit 10/25/2018 7:00a Surgical Erin Camargo K57.30 [facility] MD w/o perforation or abscess w/o bleeding K56.7 Ileus, unspecified Office Visit 07/23/2017 10:15a [facility] Andre Ortega R07.9 Chest pain, Of [facility] Morris M.D., unspecified FACC, FASNC I10 Essential (primary) hypertension Office Visit 06/16/2017 9:15a [facility] Andre Ortega R07.9 Chest pain, Of [facility] Morris M.D., unspecified FACC, FASNC Office Visit 09/10/2016 11:00a Surgical Riky N49.2 [facility] MD Carly, disorders of FACS scrotum Office Visit 04/22/2016 3:45p Orthopedic Antwan M75.122 [facility] rotatr-cuff C.M.A. M.D. tear/ruptr of left shoulder, not trauma Office Visit 03/04/2016 8:45a [facility] Andreameena Ortega I25.10 [facility] Morris M.D., disease of [place] FACC, FASNC coronary artery w/o ang pctrs Office Visit 01/13/2016 1:00p [facility] Andre Ortega I25.118 [facility] Morrsi M.D., disease of [place] FACC, FASNC cor art w oth ang pctrs Office Visit 01/01/2016 8:00a Orthopedic Antwan M19.012 [facility], reji, C.M.A. M.D. left shoulder Z47.89 Encounter for other orthopedic aftercare Office Visit 09/22/2015 10:50a [facility] Laura Sewell, M00.9 Pyogenic Assoc,pc N.P. arthritis, Hospitalists unspecified I25.119 Athscl heart disease of [place] cor art w unsp ang pctrs E66.09 Other obesity due to excess calories Office Visit 09/21/2015 10:49a [facility] Laura Donato, M00.9 Pyogenic Assoc,pc N.P. arthritis, Hospitalists unspecified I25.119 Athscl heart disease of [place] cor art w [facility] pctrs E66.09 Other obesity due to excess calories I10 Essential (primary) hypertension Office Visit 09/20/2015 10:49a [facility] Isis M79.89 Other specified Assoc,pratibha Alvarez, PLANT SPECIALIST soft tissue Hospitalists disorders I25.119 Athscl heart disease of [place] cor art w [facility] pctrs E66.09 Other obesity due to excess calories I10 Essential (primary) hypertension Office Visit 09/20/2015 11:00a Orthopedic Jessica Madsen, M25.512 Pain in left Services Of [place]onnie[place]hr[place]i [place] shoulder M86.112 Other acute osteomyelitis, left shoulder Office Visit 07/17/2013 2:54p [facility] Natacha 291.81 Alcoholic Assoc,pratibha Obrien M.D. Withdrawal Hospitalists 300.00 Anxiety State Unspec Office Visit 07/15/2013 2:52p [facility] 300.00 Anxiety State Assoc,pratibha Obrien M.D. Unspec Hospitalists 291.81 Alcoholic Withdrawal Plan of Treatment Future Appointment(s):11/25/2018 10:30 am - Andre Morris M.D., FACLazaro, ISATU at [facility] AT Iuqegixm98/03/2019 8:45 am - Andre Morris M.D., FACC, FASHAN at [facility]11/23/2018 4:00 pm - Ica ECHO Schedule at [facility]11/07/2018 - Cain Whitmore MD, FACSK57.32 Diverticulitis of large intestine without perforation or absFollow up:Direct taufkjreaH40.923 Other intestinal obstruction unspecified as to partial versu
[2018-11-07] MEDS ORDERED: Lactated Ringers 1000 ML Bag* 1,000 ML IV SCH (12:00)
[2018-11-07] MEDS: Ondansetron INJ* 2 MG/ML VIAL IV PRN ×2 (12:23→17:45)
[2018-11-07] MEDS ORDERED: ZOSYN 3.375 GM x ONE DOSE over 30 miuntes IVPB ×2 (12:30)
[2018-11-07 13:36] LABS: ABS Basophils 0.2 10^3/ul (0-0.2); ABS Eosinophils 0.2 10^3/ul (0-0.6); ABS Lymphocytes 1.2 10^3/ul (1.0-4.8); ABS Monocytes 1.2 10^3/ul (0-0.8); ABS Neutrophils 11.3 10^3/ul (1.5-7.7); Eosinophil % 1.3 %; Hematocrit 45 % (42-52); Hemoglobin 14.3 g/dL (14.0-18.0); Lymphocyte % 8.5 %; Mean Corpuscular HGB Conc 32 g/dL (31-36); Mean Corpuscular Hemoglobin 25 pg (27-31); Mean Corpuscular Volume 77 fL (80-94); Mean Platelet Volume 7.3 fL (7.4-10.4); Nucleated Red Blood Cells % 0.1; Platelet Count 529 10^3/uL (150-450); Red Blood Count 5.79 10^6 /uL (4.18-5.48); Red Cell Distribution Width 19 % (10.5-15)
[2018-11-07] MEDS: HYDROmorphone INJ1* 1 MG/ML SYRINGE IV SLOW PU PRN ×2 (13:39→17:13)
[2018-11-07 13:51] LABS: Albumin 3.7 g/dL (3.2-5.2); Albumin/Globulin Ratio 0.9 (1-3); BUN/Creatinine Ratio 23.1 (8-20); C Reactive Protein 15.82 mg/L (<8.01); Calcium 9.1 mg/dL (8.6-10.3); EGFR African American 73.3 (>60); EGFR Non-African American 60.6 (>60); Potassium 3.8 mmol/L (3.5-5.0); Total Bilirubin 0.5 mg/dL (0.2-1.0); Total Protein 7.7 g/dL (6.4-8.9)
--- NOTE | 2018-11-07 14:52 | CONS ---
CC: Dr. Cuauhtemoc Acosta; Dr. Whitmore; Dr. Andre Morris CARDIOLOGY CONSULTATION: DATE OF CONSULT: 11/07/18 INDICATION FOR CONSULTATION: Preop abdominal obstruction, history of coronary artery disease. HISTORY OF PRESENT ILLNESS: The patient is a 63-year-old gentleman with a history of coronary artery disease, history of multiple stenting to his coronary arteries. He is admitted to the hospital with an abdominal obstruction. The patient was admitted earlier in October with an abdominal obstruction. At that time, he was treated medically and placed on antibiotics and discharged home. He was scheduled to see Dr. Morris later thi s week for preoperative evaluation. The patient got a repeat obstruction last night. He had vomitin g, abdominal distention and was admitted to the hospital today. Dr. Whitmore is considering taking him to the OR later this week. The patient's past medical history is significant for coronary artery disease, he has had multiple st ents over the years, his last stent implantation was in November 2011, at that time, he had a stent to hi s obtuse marginal branch of the circumflex. I am not exactly sure where his other stents were at that time. The patient describes no history of coronary symptoms over the last 6 months. He denies any chest pa in, shortness of breath. No orthopnea or PND. No palpitations. No lightheadedness, dizziness, or sy ncope. The patient's past cardiac testing in June 2017, the patient had an echocardiogram which demonstra bradly normal LV size with systolic function. No valvular abnormalities. He had a stress test in 2017, which demonstrated normal perfusion throughout the myocardium. No evidence of ischemia or i nfarction. Ejection fraction is 65%. His TID was normal. PAST MEDICAL HISTORY: Significant for hypertension and coronary artery disease as described above. PAST SURGICAL HISTORY: Ankle and shoulder surgery in the past. OUTPATIENT MEDICATIONS: 1. Metoprolol ER 50 mg a day. 2. Lansoprazole 30 mg a day. 3. Allopurinol 300 mg a day. 4. Plavix 75 mg a day. 5. Atorvastatin 40 mg a day. 6. Amlodipine 5 mg a day. 7. Aspirin 325 a day. 8. Fish oil tablets. ALLERGIES: He is intolerant of oxycodone. FAMILY HISTORY: His father had a history of heart disease and stroke and he of sepsis. Mother is alive and well and healthy. SOCIAL HISTORY: He lives with his . 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 He is a previous smoker. He quit quite a while ago. He drinks alcohol 10 to 12 beers every other day. He does not exercise. REVIEW OF SYSTEMS: Positive for weight gain. Positive for fevers. Decrease in appetite. Other 12- point review was unremarkable. PHYSICAL EXAM: Height is 5 feet 7 inches, weight 250 pounds. Temperature 97.7, heart rate is 62, bl ood pressure 157/97, respiratory rate is 16, oxygen saturation 95% on room air. Sclerae anicteric. Oropharynx is pink without erythema. Carotids are 2+ without bruits. JVD is normal. Thyroid is norm al. Cardiac Exam: S1, S2 without any murmurs, rubs, or gallops. Lungs are clear to auscultation. Ex tremities show no edema. He has 2+ pulses throughout. The patient is awake, alert, and oriented. H e moves all 4 extremities equally. DIAGNOSTIC STUDIES/LAB DATA: His EKG on 10/23/18 demonstrates normal sinus rhythm with T-wave flatte garry, unchanged from previous EKGs. Laboratory studies from today shows a white count of 14, hemoglobin 14, hematocrit 45, platelet count 529. Chemistries are still pending. IMPRESSION AND PLAN: This is a 63-year-old gentleman with a history of coronary artery disease, hist ory of multiple stenting to his coronary arteries, who comes in today for abdominal obstruction. The patient is potentially needed to go to the operating room because of his obstruction. The patient did have extensive cardiac testing 1 year ago, which was completely normal and unremarkab le. Since then, the patient has not had any further symptoms. He has no cardiac symptoms. He has been o n appropriate medications. For now, my recommendation is the patient is at mildly increased risk of cardiovascular complications given his cardiac history. I do not think any other cardiac testing is necessary. It has been more than 5 years since his last stent implantation. I think it is reasonable to stop hi s aspirin and Plavix prior to surgery if that is necessary. If we can get away with just stopping his Plavix and continue his aspirin, that would be optimal. If the patient does not require operative care and is discharged from the hospital, the patient will follow up with Dr. Morris. [id number]/[facility] #: [id number]
[2018-11-07] MEDS ORDERED: Iodixanol* (CONTRAST) 320 MG/ML 100 ML SDV IV ONE (15:26)
[2018-11-07] MEDS: Piperacillin/Tazobactam VIAL*) 3.375 GM in NS 0.9% 100 ML* 100 ML IVPB SCH (17:14)
[2018-11-07] MEDS ORDERED: hydrALAZINE IV* 20 MG/ML VIAL IV SLOW PU PRN (18:52)
--- NOTE | 2018-11-07 19:25 | CONS ---
CC: Dr. Cuauhtemoc Acosta; Dr. Cain Whitmore * CONSULTATION REPORT: DATE OF CONSULT: 11/07/18 REQUESTING PHYSICIAN: Dr. Cain Whitmore. REASON FOR CONSULT: Help with chronic medical diseases. PRIMARY CARE PROVIDER: Dr. Cuauhtemoc Acosta. CHIEF COMPLAINT: Upper abdominal pain associated with nausea and vomiting. HISTORY OF PRESENT ILLNESS: Mr. Juarez is a 63-year-old male with a history of CAD, status post 7 stents, last in 2011; hypertension; prior alcohol abuse with hospitalization for withdrawal; gout and recurrent diverticulitis, who had a recent hospitalization, discharged 9 days ago for diverticulitis. He had been following with Dr. Whitmore in clinic for recurrent diverticulitis with plan for elective surgical intervention; however, prior to planned surgery, the patient reports that he began experiencing upper abdominal discomfort 2 days prior to this presentation. The pain is described as cramping and different than the lower abdominal pain that he gets for recurrent episodes of diverticulitis. This pain was progressive and associated with multiple episodes of bilious emesis. So, he presented to the hospital for admission. There is currently concern that he could have an ileus versus a bowel obstruction and he is pending in abdominal CT scan. Dr. Whitmore has consulted cardiology for preoperative recommendations for his cardiac medications prior to surgery. PAST MEDICAL HISTORY: 1. CAD, status post 7 stents, most recently in 2011. 2. Hypertension. 3. Alcohol abuse, in remission, patient hospitalization in 2013 after stopping alcohol use for a surgical procedure. He subsequently presented after the procedure with anxiety, diaphoresis, and hallucination likely from alcohol withdrawal, although the patient thinks it was from taking oxycodone after his surgery. 4. Gout. 5. Multiple left shoulder surgeries and dislocations. 6. Obstructive sleep apnea. 7. Obesity. HOME MEDICATIONS: 1. Aspirin 81 daily. 2. Plavix 75 mg daily. 3. Atorvastatin 40 mg daily. 4. Amlodipine 10 mg daily. 5. Aleve 650 daily as needed. 6. Metoprolol succinate 50 mg daily. 7. Allopurinol 300 mg daily. 8. Prevacid 30 mg daily. 9. Nitroglycerin 0.4 mg sublingual every 5 minutes as needed for chest pain. 10. Wayne-3 fatty acids. ALLERGIES: OXYCODONE, likely not a real allergy, it seems the patient is attributing alcohol withdrawal symptoms to oxycodone history. FAMILY HISTORY: Father had CABG at 39 and from [place] after that. Grandfather had history of coronary artery disease. Mother had unknown renal cancer that was cured with surgical removal. 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 He quit smoking in his early 30s, began as a teenager. He started drinking alcohol at age 16 with periods of time drinking up to 8 beers daily, but decreased his use to 1 day per week in the last couple of years. Denies other drug use. Lives with his partner, Marcelle. PHYSICAL EXAM: The patient is afebrile, heart rate 59, blood pressure 159/76, respiratory rate 15, oxygen saturation 97% on room air. In general, he is a well- nourished man who appears his stated age, nontoxic, appears comfortable, alert, and pleasant. HEENT: OP clear. Moist mucous membranes. Neck: No JVD appreciated. Lungs: Clear to auscultation bilaterally. Cardiac: Regular rate and rhythm. No murmurs, gallops, or rubs. Abdomen: Soft, mild tenderness to deep palpation around umbilicus. No tenderness elsewhere. No guarding or rebound. Hyperactive bowel sounds. Extremities: Warm and well perfused. No evidence of edema. DIAGNOSTIC STUDIES/LAB DATA: Leukocytosis 14, improved since discharge. Hemoglobin normal. Creatinine newly elevated at 1.21 with elevation in BUN/creatinine ratio to 23. CRP 15, improved from prior admission. Lipase 29. Abdomen/pelvis CT is pending. ASSESSMENT AND PLAN: Mr. Juarez is a 63-year-old man with coronary artery disease, hypertension, multiple episodes of diverticulitis with recent discharge, history of alcohol use, gout, obstructive sleep apnea not on CPAP, obesity, who is presenting with new abdominal symptoms of severe cramping upper abdominal pain associated with nausea and vomiting with presenting symptoms most concerning for new bowel obstruction versus ileus. 1. Diverticulitis and possible small bowel obstruction. The patient does not seem actively infected from diverticulitis, but we will defer management of these issues to primary surgical team. 2. Coronary artery disease. Holding aspirin and Plavix as per Dr. Sorto for possible pending abdominal surgery. Can continue metoprolol succinate 50 mg daily. Continue omega-3 fatty acids and atorvastatin 40 mg daily. 3. Hypertension. May continue amlodipine 10 mg daily as the patient currently has elevated blood pressure likely from pain. 4. Gout. Continue allopurinol 300 mg daily. 5. Gastroesophageal reflux disease. Continue home PPI. 6. DVT prophylaxis. We will defer to primary team for DVT prophylaxis given possible and pending surgery. The patient can continue SCDs and ambulation as tolerated. 7. Full code. TIME SPENT: Approximately 60 minutes spent on consultation with this patient, more than half of which was spent at bedside for interview and exam. [id number]/[facility] #: [id number] YENI
[2018-11-07] MEDS: NS 0.9% 1000 ML** 1,000 ML IV SCH (19:56)
[2018-11-08] MEDS: Piperacillin/Tazobactam VIAL*) 3.375 GM in NS 0.9% 100 ML* 100 ML IVPB SCH ×3 (00:52→17:20)
[2018-11-08] MEDS: NS 0.9% 1000 ML** 1,000 ML IV SCH (04:05)
[2018-11-08 05:09] LABS: Hematocrit 39 % (42-52); Hemoglobin 12.6 g/dL (14.0-18.0); Mean Corpuscular HGB Conc 32 g/dL (31-36); Mean Corpuscular Hemoglobin 25 pg (27-31); Mean Corpuscular Volume 77 fL (80-94); Platelet Count 456 10^3/uL (150-450); Red Blood Count 5.07 10^6 /uL (4.18-5.48); Red Cell Distribution Width 18 % (10.5-15)
[2018-11-08 05:18] LABS: INR 1.15 (0.82-1.09)
[2018-11-08 05:26] LABS: BUN/Creatinine Ratio 20.4 (8-20); Calcium 8.2 mg/dL (8.6-10.3); EGFR African American 93.5 (>60); EGFR Non-African American 77.2 (>60); Potassium 3.8 mmol/L (3.5-5.0)
[2018-11-08] MEDS: Allopurinol TAB* 300 MG PO SCH (09:29)
[2018-11-08] MEDS: Atorvastatin* 40 MG TAB PO SCH (09:29)
[2018-11-08] MEDS: Metoprolol Succinate XL TAB* 50 MG PO SCH (09:29)
[2018-11-08] MEDS: amLODIPine TAB* 5 MG PO SCH (09:29)
--- NOTE | 2018-11-08 10:08 | PN ---
Progress Note - Progress Note Date of Service: 11/08/18 SOAP: Subjective: Pt seen and examined. Felling "much better" today. Positive large BM, some flatus, decreased abdo pain appreciate hosp, and cardio consults Objective: Temp Pulse Resp BP Pulse Ox 98.1 F 47 16 133/64 94 11/08/18 07:18 11/08/18 07:18 11/08/18 08:00 11/08/18 07:18 11/08/18 07:18 Intake & Output 11/07/18 11/08/18 11/08/18 22:59 06:59 14:59 Intake Total 447 985 150 Output Total 450 Balance -3 985 150 Weight 250 lb lungs clear abdo: soft/ obese/ NT, palpable mass lower abdo ext wnl CT c/w SBO, decreased inflam changes at sigmoid Assessment: HD 2 resolving diverticulitis, SBO vs pSBO Plan: axr sips possible OR tomorrow if not more improved
[2018-11-09] MEDS: NS 0.9% 1000 ML** 1,000 ML IV SCH ×2 (00:25→08:13)
[2018-11-09] MEDS: Piperacillin/Tazobactam VIAL*) 3.375 GM in NS 0.9% 100 ML* 100 ML IVPB SCH ×2 (01:14→08:09)
[2018-11-09 06:30] LABS: ABS Basophils 0.1 10^3/ul (0-0.2); ABS Eosinophils 0.4 10^3/ul (0-0.6); ABS Lymphocytes 1.5 10^3/ul (1.0-4.8); Eosinophil % 4.1 %; Hematocrit 38 % (42-52); Hemoglobin 12.2 g/dL (14.0-18.0); Lymphocyte % 14.8 %; Mean Corpuscular HGB Conc 32 g/dL (31-36); Mean Corpuscular Hemoglobin 25 pg (27-31); Mean Corpuscular Volume 78 fL (80-94); Mean Platelet Volume 7.2 fL (7.4-10.4); Nucleated Red Blood Cells % 0.2; Platelet Count 422 10^3/uL (150-450); Red Cell Distribution Width 18 % (10.5-15); White Blood Count 9.9 10^3/uL (3.5-10.8)
[2018-11-09 06:45] LABS: BUN/Creatinine Ratio 10.4 (8-20); C Reactive Protein 8.21 mg/L (<8.01); Calcium 8.2 mg/dL (8.6-10.3); EGFR African American 123.5 (>60); Potassium 3.6 mmol/L (3.5-5.0)
[2018-11-09] MEDS: amLODIPine TAB* 5 MG PO SCH (08:08)
[2018-11-09] MEDS: Atorvastatin* 40 MG TAB PO SCH (08:08)
[2018-11-09] MEDS: Allopurinol TAB* 300 MG PO SCH (08:08)
[2018-11-09] MEDS: Metoprolol Succinate XL TAB* 50 MG PO SCH (08:09)
--- NOTE | 2018-11-09 08:17 | PN ---
Subjective Date of Service: 11/09/18 Interval History: HD #2 on 11/09 63 yo M with PMH CAD s/p x7 PCI (2011), JOSEPH, obesity, HTN, prior EtoH use d/o, gout, recurrent diverticulitis presented with RUQ abdominal pain and bilious emesis, hospitalist asked to consult as pt may have SBO vs pSBO. Overnight, no acute events, VSS-jovanni, med induced, asymp. Labs:Wholly normal save for mild anemia This morning doing well wanting to be d/c no belly pain no CP SOB no MSK or issues Objective Active Medications: Allopurinol (Zyloprim Tab*) 300 mg PO DAILY [facility] Last Admin: 11/09/18 08:08 Dose: 300 mg Amlodipine Besylate (Norvasc Tab*) 10 mg PO DAILY [facility] Last Admin: 11/09/18 08:08 Dose: 10 mg Atorvastatin Calcium (Lipitor*) 40 mg PO DAILY [facility] Last Admin: 11/09/18 08:08 Dose: 40 mg Hydralazine HCl (Apresoline Iv*) 5 mg IV SLOW PU Q6H PRN PRN Reason: BP > 180 Hydromorphone HCl (Dilaudid Inj1s*) 0.5 mg IV SLOW PU Q1H PRN PRN Reason: PAIN - SEVERE Last Admin: 11/07/18 17:13 Dose: 0.5 mg Piperacillin Sod/Tazobactam (Sod 3.375 gm/ Sodium Chloride) 100 mls @ 25 mls/ hr IVPB Q8H [facility] Last Admin: 11/09/18 08:09 Dose: 25 mls/hr Sodium Chloride (Ns 0.9% 1000 Ml) 1,000 mls @ 125 mls/hr IV PER RATE [facility] Last Admin: 11/09/18 00:25 Dose: 125 mls/hr Metoprolol Succinate (Toprol Xl Tab*) 50 mg PO DAILY [facility] Last Admin: 11/09/18 08:09 Dose: 50 mg Ondansetron HCl (Zofran Inj*) 4 mg IV Q4H PRN PRN Reason: NAUSEA/VOMITING Last Admin: 11/07/18 17:45 Dose: 4 mg Vital Signs - 8 hr 11/09/18 11/09/18 03:56 07:20 Temperature 97.7 F 98.2 F Pulse Rate 55 54 Respiratory 16 16 Rate Blood Pressure 150/72 138/72 (mmHg) O2 Sat by Pulse 97 97 Oximetry Oxygen Devices in Use Now: None Appearance: Pleasnat man in NAD Ears/Nose/Mouth/Throat: NL Teeth, Lips, Gums Neck: NL Appearance and Movements; NL JVP Respiratory: Symmetrical Chest Expansion and Respiratory Effort, Clear to Auscultation Cardiovascular: NL Sounds; No Murmurs; No JVD, RRR Abdominal: NL Sounds; No Tenderness; No Distention, No Hepatosplenomegaly Lymphatic: No Cervical Adenopathy Extremities: No Edema Skin: No Rash or Ulcers Neurological: Alert and Oriented x 3 Result Diagrams: 11/09/18 05:54 11/09/18 05:54 Assess/Plan/Problems-Billing Assessment: 63 yo M with [facility] CAD s/p x7 PCI (2011), JOSEPH, obesity, HTN, prior EtoH use d/o, gout, recurrent diverticulitis presented with RUQ abdominal pain and bilious emesis, hospitalist asked to consult as pt may have SBO vs pSBO, possible underlying diverticulitis, though unlikely. - Patient Problems (1) SBO (small bowel obstruction) Current Visit: No Status: Acute Code(s): K56.609 - UNSP INTESTNL OBST, UNSP TO PARTIAL VERSUS COMPLETE OBST SNOMED Code(s): 115227993 Comment: - consistent with ileus, surgery following, now improving, thought by surgery to be 2/2 to diverticulitis-no e/o on imaging or in labs - Abx are continued per surgery, if d/c he would be d/c on Augmentin for a total of 7-10 days, he is currently Day 2 of abx on 11/09 - Ileus resolved/bowel function returned, tolerating low residue diet (2) CAD (coronary artery disease) Current Visit: No Status: Acute Code(s): I25.10 - ATHSCL HEART DISEASE OF [place] CORONARY ARTERY W/O ANG PCTRS SNOMED Code(s): 31680225 Comment: - HX of 7 stents, cont holding DAPT here for d/c can go on Plavix, ASA, and Metoprolol unless plan for surgery is imminent (3) Anemia Current Visit: No Status: Acute Code(s): D64.9 - ANEMIA, UNSPECIFIED SNOMED Code(s): 891774171 Comment: - Mild, Mixed type; possible chronic disease (given hx of etoh abuse ), iron deficiency, and inflammation (4) Gout Current Visit: No Status: Acute Code(s): M10.9 - GOUT, UNSPECIFIED SNOMED Code(s): 81690028 Comment: - Cont Allopurinol (5) Hypertension Current Visit: No Status: Acute Code(s): I10 - ESSENTIAL (PRIMARY) HYPERTENSION SNOMED Code(s): 00554937 Comment: -Cont Norvasc and Metoprolol - Could d/c IVF if pt POing (6) DVT prophylaxis Current Visit: No Status: Acute Code(s): ZDS8241 - SNOMED Code(s): 878630353 Comment: - Nothing currently, would suggest adding if no plan for surgery and planning to keep him in house (7) Full code status Current Visit: No Status: Acute Code(s): Z78.9 - OTHER SPECIFIED HEALTH STATUS SNOMED Code(s): 869075262 Status and Disposition: As per primary
--- NOTE | 2018-11-09 09:19 | PN ---
Progress Note - Progress Note Date of Service: 11/09/18 SOAP: Subjective: Pt seen and examined. minimal flatus, some burping. abdo pain, but no longer colicky Objective: af vss abdo: soft/ obese/ NT hypoactive BS Axr: reviewed Assessment: resolivng complicated diverticulitis (smoldering?); with 2ary inflammation causing pSBO Plan: low residue diet abx d/c planning- I discussed with pt possible urgent need for [facility], but we will try to get him through this acute inflammation for sigmoid colectomy in 5 weeks
[2018-11-09 12:28] VITALS: BP 144/74
--- NOTE | 2018-11-09 16:44 | DS ---
CC: Dr. Cuauhtemoc Acosta* DISCHARGE SUMMARY: DATE OF ADMISSION: 11/07/18 DATE OF DISCHARGE: 11/09/18 ATTENDING SURGEON: Dr. Cain Whitmore* (SHEYLA Seay dictating). HOSPITAL COURSE: Please refer to admission history and physical for details. Briefly, the patient was admitted on 11/07/18 with abdominal pain, nausea, and vomiting. CT scan with contrast showed evidence of SBO, but little or no active diverticulitis despite his recent hospital stay when he was treated for acute diverticulitis. Unsuccessful attempt was made to place NG tube. Despite this, the patient has improved over the last 48 hours with significantly less pain, passage of stool, and tolerance of low-residue diet. See progress note of the same date from Dr. Whitmore. He will be discharged on Augmentin 875 mg b.i.d. x10 and has a followup with Dr. Whitmore in the office on 11/21/18. He will resume his usual home medications (see medication reconciliation form). The patient is discharged to home in good condition. SHEYLA SEAY [id number]/[facility] #: [id number] [facility] HOSPITALHeriberto
== END 2018-11-09 15:35 | disposition home or self-care (01) | DRG 247 ==
LOC: SSU 11:43
PROVIDERS: ADMIT Surgery; ATTEND Surgery
DX: K56.600 Partial intestinal obstruction, unspecified as to cause (principal); K57.30 Diverticulosis of large intestine without perforation or abscess without bleeding; I10 Essential (primary) hypertension; E78.00 Pure hypercholesterolemia, unspecified; M10.9 Gout, unspecified; K21.9 Gastro-esophageal reflux disease without esophagitis; I25.10 Atherosclerotic heart disease of native coronary artery without angina pectoris; G47.33 Obstructive sleep apnea (adult) (pediatric); E66.9 Obesity, unspecified; R00.1 Bradycardia, unspecified; T50.905A Adverse effect of unspecified drugs, medicaments and biological substances, initial encounter; Y92.239 Unspecified place in hospital as the place of occurrence of the external cause; K56.7 Ileus, unspecified; D50.9 Iron deficiency anemia, unspecified; D63.8 Anemia in other chronic diseases classified elsewhere; Z86.010 Personal history of colon polyps; Z95.5 Presence of coronary angioplasty implant and graft; Z87.891 Personal history of nicotine dependence; Z72.89 Other problems related to lifestyle; Z88.5 Allergy status to narcotic agent; Z68.39 Body mass index [BMI] 39.0-39.9, adult; Z82.49 Family history of ischemic heart disease and other diseases of the circulatory system; Z80.51 Family history of malignant neoplasm of kidney; Z53.9 Procedure and treatment not carried out, unspecified reason
CPT/HCPCS: 36415; 74019; 74177; 80048; 80053; 83690; 85025; 85027; 85610; 86140; 86850; 86900; 86901; A9270-GY; J1170; J2405; J2543; Q9967

== ENCOUNTER 2018-12-28 10:15 | Inpatient (IN) | payer BC ==
--- NOTE | 2018-12-12 15:32 | HP ---
CC: Dr. Acosta; Dr. Mar; Dr. Andre Morris * ADMISSION HISTORY AND PHYSICAL: DATE OF ADMISSION: 12/28/18 ATTENDING SURGEON: Dr. Cain Whitmore * (SHEYLA Seay, dictating). CHIEF COMPLAINT: Diverticulitis. HISTORY OF PRESENT ILLNESS: This is a 63-year-old male who was most recently admitted to [facility] with acute diverticulitis with admission from 10/23/18 through 10/29/18 and then readmission from 11/07/18 through 11/09/18 for ileus versus partial small bowel obstruction. He was treated medically in both cases with initial IV antibiotics and then transitioned to oral antibiotics. I am not sure if the initial CT scan indicated microperforation. He has had on average 1 to 2 episodes per year for the last 7 years and only 1 other time requiring admission to the hospital. He states that in the vast majority cases, he takes ibuprofen only, takes a couple of days off of work and symptoms resolve. The most recent episode in October was the worst episode ever. He did have some nausea and vomiting with one of the recent admissions. He is not sure if he had fever or chills. He describes pain sometimes limited to the left lower quadrant, but the most recent admission pain was across the entire lower abdomen. CT scan did confirm the presence of diverticulitis. He has undergone prior colonoscopy approximately [address] Mar with findings at that time of diverticulosis as well as a transverse colon polyp. He states that bowel movements have been normal of lately, in fact possibly a little bit toward constipation. He has met with Dr. Whitmore a couple of times recently (most recently on 11/24/18). Dr. Whitmore has discussed with him the course of recent events, the indications for surgery, the risks, benefits and alternatives and the patient would like to proceed as scheduled with laparoscopic sigmoid colectomy. The patient was prescribed mechanical bowel prep as well as oral antibiotics per protocol. He had been seen in preparation for surgery by Dr. Morris, who felt that he was at reasonably low risk and that no further testing or intervention was required (see separate report). Per Dr. Morris's direction, he will hold his Plavix after his 12/22/18 dose. He will continue his other usual medications during the perioperative period. PAST MEDICAL HISTORY: Coronary artery disease (status post PCI on multiple occasions including 7 stents, see attached for more details), hypertension, hyperlipidemia, gout, GERD, obesity, diverticulitis as noted above. PAST SURGICAL HISTORY: Previous surgeries include left shoulder surgery and ORIF of a right ankle fracture. No reported surgical or anesthesia complications. CURRENT MEDICATIONS: 1. Plavix 75 mg once daily. The patient to hold after the last dose on . 2. Metoprolol succinate extended release 25 mg once daily. 3. Aspirin 81 mg once daily. 4. Lansoprazole 30 mg once daily. 5. Allopurinol 300 mg once daily. 6. Atorvastatin 40 mg once daily. 7. Fish oil 1 capsule once daily. 8. Amlodipine 10 mg once daily. 9. Aleve 220 mg 2 tablets q.a.m. 10. Nitroglycerin sublingual p.r.n. (has not required). DRUG ALLERGIES: OXYCODONE (panic attacks), MORPHINE (blisters and rash, though this was limited to his back during recent hospitalization and may have been from other contact factors). FAMILY HISTORY: Negative for colorectal cancer, anesthesia problems, bleeding, or clotting disorders. SOCIAL HISTORY: The patient has long-time girlfriend. 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 He is a former smoker of approximately 1 pack per day for 10 to 15 years. He quit over 25 years ago. He has not had any alcohol in the past 2 months, but states that he previously did drink much more. He denies any other recreational drug use. REVIEW OF SYSTEMS: General: No recent constitutional symptoms or acute illnesses other than described in the HPI. He did note approximately 20 pounds weight loss since his most recent hospitalization. Weight has remained stable. HEENT: He is having some dental work done, but no acute problems reported. Cardiovascular: No chest pain, palpitations, or history of heart murmurs. See also attached from Dr. Morris. Respiratory: No problems with shortness of breath or chronic cough. GI: GERD symptoms well controlled, otherwise see HPI. : No problems reported. Endocrine: No diabetes or thyroid dysfunction. Musculoskeletal: No recent exacerbations of gout. PHYSICAL EXAMINATION GENERAL: Well-nourished, somewhat obese male, in no acute distress. VITAL SIGNS: Height 67 inches, weight 228 pounds, BMI 35.7. Temperature 97.3, blood pressure 132/84, pulse 72, respirations 16. HEENT: Pupils are equal and round, reactive. EOMs intact. No conjunctival pallor. Oropharynx: Mucous membranes are moist. Upper teeth, few dental caries. No dental infection. No intraoral lesions. NECK: No lymphadenopathy, thyromegaly, or masses. LUNGS: Clear to auscultation. No rales or wheezes. HEART: Regular rate and rhythm. No murmur appreciated, although heart sounds are somewhat distant. ABDOMEN: Obese, soft, nontender to palpation. No palpable masses or organomegaly. No palpable inguinal hernias. GENITALIA: Not done. RECTAL: Not done. BACK: No spinous process or CVA tenderness. EXTREMITIES: No edema. NEUROLOGICAL: Grossly intact. SKIN: Warm and dry. No suspicious rashes or lesions. IMPRESSION: Recurrent diverticulitis. PLAN: Laparoscopic sigmoid colectomy. SHEYLA SEAY [id number]/[facility] #: [id number] [facility] CENTERHeriberto
[2018-12-29] MEDS ORDERED: Buffered Lidocaine 1% SYRIN* 1 ML/SYRINGE INTRADERM ONE (10:37)
[2018-12-30] MEDS ORDERED: ERTApenem(*) 1 GM in NS 0.9% 50 ML* 50 ML IVPB SCH ×2
[2018-12-30] MEDS ORDERED: Dexamethasone IV* 4 MG/ML 1 ML (4 MG) IV SLOW PU ONE (06:00)
[2018-12-30] MEDS ORDERED: Lactated Ringers 1000 ML Bag* 1,000 ML IV SCH (06:00)
[2018-12-30] MEDS ORDERED: Heparin VIAL(*) 5000 UNITS/ML VIAL (FIVE THOUSAND) ONE (11:11)
[2018-12-30] MEDS ORDERED: Dexamethasone IV* 4 MG/ML 1 ML (4 MG) ONE (11:11)
[2018-12-30] MEDS ORDERED: Buffered Lidocaine 1% SYRIN* 1 ML/SYRINGE INTRADERM ONE (11:11)
[2018-12-30] MEDS ORDERED: Rocuronium* 10 MG/ML VIAL ONE (12:14)
[2018-12-30] MEDS ORDERED: fentaNYL* 50 MCG/ML 5 ML VIAL (250 MCG VIAL) ONE (12:14)
[2018-12-30] MEDS ORDERED: Midazolam* 1 MG/ML 2 ML VIAL (2 MG) ONE (12:15)
[2018-12-30] MEDS ORDERED: Bupivacaine 0.25% EPI 200,000* 30 ML SDV ONE (13:43)
[2018-12-30] MEDS ORDERED: Cisatracurium* 2 MG/ML MDV 5 ML ONE (15:30)
[2018-12-30] MEDS ORDERED: HYDROmorphone INJ1* 1 MG/ML SYRINGE ONE (15:56)
[2018-12-30] MEDS ORDERED: Propofol* 10 MG/ML 20 ML BTL ONE (15:59)
[2018-12-30] MEDS ORDERED: ROPIVACAINE 5 MG/ML 30 ML BTL (0.5%) ONE (15:59)
[2018-12-30] MEDS ORDERED: Lidocaine 2% PF * 5 ML VIAL ONE (15:59)
[2018-12-30] MEDS ORDERED: Succinylcholine* 20 MG/ML 10 ML VIAL ONE (15:59)
[2018-12-30] MEDS ORDERED: DiMENhydriNATE IV* 50 MG/ML VIAL IV PUSH PRN (16:00)
[2018-12-30] MEDS ORDERED: HYDROmorphone INJ1* 1 MG/ML SYRINGE IV PRN (16:00)
[2018-12-30] MEDS ORDERED: PROCHLORPERAZINE INJ 5 MG/ML 2 ML VIAL IV PRN (16:00)
[2018-12-30] MEDS ORDERED: Acetaminophen IV 1GM/100ML * 1,000 MG/100 ML VIAL IVPB ONE (16:00)
[2018-12-30] MEDS ORDERED: Naloxone* 0.4 MG/ML 1 ML VIAL IV PRN (16:00)
[2018-12-30] MEDS ORDERED: fentaNYL* 50 MCG/ML 2 ML VIAL (100 MCG VIAL) IV PRN (16:00)
[2018-12-30] MEDS ORDERED: EPHEDrine (Pressors)* 50 MG/ML VIAL ONE (16:08)
[2018-12-30] MEDS ORDERED: Glucagon* 1 MG VIAL ONE (17:11)
[2018-12-30] MEDS ORDERED: Glycopyrrolate IV* 0.2 MG/ML 1 ML VIAL ONE (17:48)
[2018-12-30] MEDS ORDERED: Neostigmine Methylsulfate* 3 MG/3 ML SYRINGE ONE (17:48)
[2018-12-30] MEDS ORDERED: Ondansetron INJ* 2 MG/ML VIAL ONE (17:52)
--- NOTE | 2018-12-30 18:36 | OP ---
<Yolande Lopez - Last Filed: 12/30/18 18:33> Operative Report - Blank - Operative Report Date of Operation: 12/30/18 Note: Preoperative dx: diverticulitis Postoperative dx: diverticulitis of the sigmoid colon Procedure: diagnostic laparoscopy; exploratory laparotomy; lysis of adhesions; sigmoid colectomy Anesthesia: GAET Surgeon: MERCEDEZ Segovia EBL: 100 cc Specimen: sigmoid colon Fluids: 3550 cc LR Drains: mason Findings: above <Cain Whitmore - Last Filed: 12/30/18 18:46> Operative Report - Blank - Operative Report Note: I reviewed and agree with NPP student's note.
[2018-12-30] MEDS ORDERED: Ondansetron INJ* 2 MG/ML VIAL IV PRN (18:57)
[2018-12-30] MEDS ORDERED: Naloxone* 0.4 MG/ML 1 ML VIAL IV PUSH PRN (19:03)
[2018-12-30] MEDS ORDERED: Acetaminophen IV 1GM/100ML * 100 ML ONE (19:10)
[2018-12-30] MEDS ORDERED: HYDROmorphone PCA* 20 MG/20 ML PCA.SYRING PCA SCH (20:00)
[2018-12-30] MEDS: Lactated Ringers 1000 ML Bag* 1,000 ML IV SCH (20:39)
[2018-12-30] MEDS ORDERED: Heparin VIAL(*) 5000 UNITS/ML VIAL (FIVE THOUSAND) SUBCUT SCH (22:00)
[2018-12-30] MEDS: Ketorolac INJ* 15 MG/ML 1 ML VIAL IV PUSH SCH (23:06)
[2018-12-30] MEDS: Heparin VIAL(*) 5000 UNITS/ML VIAL (FIVE THOUSAND) SUBCUT SCH (23:08)
--- NOTE | 2018-12-30 23:41 | OP ---
CC: Dr. Cuauhtemoc Acosta; Dr. Earnest Mar; Dr. Andre Morris; [facility] OPERATIVE REPORT: DATE OF OPERATION: 12/30/18 DATE OF : 55 SURGEON: Cain Whitmore MD ASSISTANTS: business services assistant, Dr. Mauro Hernandez; second bankruptcy legal assistant, SHEYLA Bean. ANESTHESIOLOGIST: Dr. Gilbert. ANESTHESIA: General anesthesia and TAP block. PRE-OP DIAGNOSIS: Diverticulitis. POST-OP DIAGNOSIS: Diverticulitis. OPERATIVE PROCEDURE: Diagnostic laparoscopy, exploratory laparotomy, lysis of adhesions, and sigmoid colectomy. ESTIMATED BLOOD LOSS: 100 cc. SPECIMEN: Sigmoid colon. FLUIDS: 3500 cc of Lactated Ringers. DRAINS: Lucas catheter, less than 500 cc out. COUNTS: Lap pad count and instrument count correct at the end of the procedure. DESCRIPTION OF PROCEDURE: Mr. Juarez was seen in the preoperative area, he was marked and case disc ussed with him, he understood and signed consent. He was taken to the operating room where general a nesthesia was induced. TAP block was introduced by the anesthesiologist, please see separate report for details. Lucas catheter was inserted. SCDs had been placed on bilateral lower extremities. Patient was positioned on the table, abdominal hair was clipped. Preoperative antibiotics were given and patient's abdomen was prepped and draped in the standard surgical fashion after prepping the rec bebeto from below with Betadine flush. There were no palpable lesions in the rectum on that evaluation. Time-out was performed. An infraumbilical incision was made, this was deepened down to the anterior fascia, which was elevate d and incised. The posterior fascia was elevated and incised as well, entered into the abdominal cav ity. It did prove somewhat difficult to make sure we are in the proper plane, but then we placed a 1 2 mm Wade type trocar in and the abdomen was allowed to insufflate to a pressure of 15 mmHg. Lapar oscope was inserted through this and there were adhesions to the anterior abdominal wall, especially at the site of our entry point. A 12-mm trocar was then placed in the right lower quadrant and a 5 mm in the suprapubic area. Lysis of adhesions was then carried out taking small wispy adhesions to the anterior abdominal wall o f small bowel and also to the sigmoid colon. We were able to do this, but appeared to be multiple lo ops of small bowel that were adhered to the anterior abdominal wall without a clear interface that we could lyse easily laparoscopically. These were also right under the umbilical incision and I felt w e could increase the size of the umbilical incision and evaluate in this manner. Therefore, the insuf flation was stopped, the blunt 12-mm trocar was removed and we increased our incision inferiorly and brought this down through the subcutaneous fat, which was sizeable down to the anterior fascia, which was incised staying in the midline as best we could. We did cheat to the left side to stay out of t he adhered bowel that we could feel through the trocar incision. It was at this time through the small incision that I realized I could not do a proper lysis of adhes ions because the visualization was poor and made a decision to just perform an open procedure altoget her. This incision was increased inferiorly and superiorly. We opened up the abdomen and lysed adhe sions of the small bowel both to the sigmoid colon and to itself until we could eviscerate the small bowel in its entirety. No enterotomies were appreciated and the small bowel was packed in the right upper quadrant. A Bookwalter was utilized and we were able to retract small bowel superiorly and also evaluate the si gmoid colon. This appeared floppy with multiple diverticula in the peritoneum of the lateral aspect, taken it down to the White line of Toldt and extended this up towards the splenic flexure, but did n ot do a takedown at the splenic flexure, as we felt there is significant redundant sigmoid colon. Th e diseased area in the sigmoid colon was mostly in the mid portion of it, mid to distal, as this was adhered to the small bowel. I extended my dissection of the peritoneum along the sigmoid colon taking free of the ureters, the le ft ureter was identified and protected. A point on the rectum was chosen. We made a window at the distal sigmoid mesocolon and placed a 60 m m green TA stapler through this, clamping the bowel proximally, we cut this and then used a LigaSure device staying close to the colon and bringing this up towards the distal descending colon, where we had chosen a point proximally. The point we had chosen was free of any diverticula. I placed a purs estring at this site and used a 3-0 Biosyn suture and removed the specimen and passed it off. Next, protecting the wound, we opened up the pursestring clamp and dilated the proximal bowel, 25 mm sizer fit with some difficult and the 28 would not fit. It is at this point,we decided to utilize a 25 EEA stapler and we utilized a 4.8 mm stapling device with 25 diameter. Anvil was placed in the ap propriate fashion and the pursestring suture was tied and cut. Next, after changing gloves and removal of the dirty items, we irrigated out the abdomen. Review of the rectal stump showed some oozing along the staple line, for which we used 3-0 Vicryl to gain hemos tasis. Once hemostasis was achieved along the staple line, the distal descending colon and sigmoid c olon fell back into the pelvis with ease. We created the anastomosis with the end-of-end stapling de vice from the rectum. These were mated and fired, the orientation of the colon was appropriate. Next, an air test was performed in the appropriate fashion, clamping the bowel proximally and submerg ing the anastomosis under water. Injection of air led to distention of the colon and rectum without any air bubbles. I did imbricate corners of the rectal stump with 3-0 silk sutures. The review of the abdomen showed that hemostasis was excellent. Again, the anastomosis was under no tension. I went back to the small bowel and ran this proximally to distally, going over all lysed areas and we saw no serosal injuries that warranted any intervention. Once the lap pad count and instrumen t correct were correct, we closed the abdomen with a running #1 loop PDS suture starting inferiorly a nd superiorly and tying them in the middle. Wound was irrigated and reapproximated with skin gun. T he 2 additional trocar sites that had not been closed at this point were then closed with skin staple s as well. Sterile dressing was applied. The patient was woken up in the OR, transferred to the PAC U in stable condition. [id number]/[facility] #: [id number]
--- NOTE | 2018-12-31 00:31 | CONS ---
CC: Dr. Acosta; Dr. Andre Morris * MEDICINE CONSULTATION REPORT: DATE OF CONSULT: 12/30/18 PROVIDER: Bernabe Rivera NP. ATTENDING PHYSICIAN: Dr. Ashley Ramírez (dictated by Bernabe Rivera NP). PRIMARY CARE PHYSICIAN: Dr. Cuauhtemoc Acosta. OUTPATIENT LICENSED PHARMACIST: Dr. Andre Morris. REASON FOR CONSULT: Postoperative care, the patient on telemetry. HISTORY OF PRESENT ILLNESS: Mr. Juarez is a 63-year-old male who presents today for elective laparoscopic sigmoid colectomy due to history of recurrent diverticulitis. He had two previous admissions in October from 10/23/18 to 10/29/18, and again from 11/07/18 to 11/09/18 for diverticulitis. At both of his admissions, he was medically managed. He was seen as an outpatient by Surgery and it was determined that he may benefit from a laparoscopic sigmoid colectomy secondary to recurrent diverticulitis. He was medically cleared by his charhouse worker. Mr. Juarez is seen postoperatively. He is still somewhat drowsy, but states that he feels like he is having difficulty taking a deep breath. He denies any chest pain. Prior to his admission today, he denies any complaint of chest pain or difficulty breathing. He denies feeling fevers or chills or having any previous illness prior to his surgery this morning. He denies pain to the abdomen, saying that he cannot feel the area. He is status post a right and left TAP block. PAST MEDICAL HISTORY: Include: 1. Recurrent diverticulitis. 2. Coronary artery disease, status post PCI with history of 7 stents. 3. Hypertension. 4. Hyperlipidemia. 5. Gout. 6. GERD. 7. Obesity. PAST SURGICAL HISTORY: Includes left shoulder surgery and ORIF of right ankle. HOME MEDICATIONS: 1. Clopidogrel 75 mg q.a.m. 2. Metoprolol succinate XL 25 mg q.a.m. 3. Amlodipine 10 mg q.a.m. 4. Southington-3 1200 mg q.a.m. 5. Naproxen 440 mg daily p.r.n. 6. Lansoprazole 30 mg q.a.m. 7. Nitroglycerin 0.4 mg sublingual q.5 minutes p.r.n. 8. Ibuprofen 600 mg q.6 hours p.r.n. 9. Atorvastatin 40 mg q.a.m. 10. Aspirin 81 mg q.a.m. 11. Allopurinol 300 mg p.o. q.a.m. ALLERGIES: Include MORPHINE and OXYCODONE. FAMILY HISTORY: History of heart disease, hypertension, and stroke. Both parents are . SOCIAL HISTORY: He is a former smoker, having quit over 25 years ago. He used to smoke 1 pack per day for about 10 to 15 years. Per the records, he is a former heavy drinker, but only now occasionally he consumes alcohol. He denies any recent use. 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 His significant other is his surrogate decision maker. REVIEW OF SYSTEMS: A 14-point review of systems was reviewed with the patient. He is somewhat drowsy, unable to fully answer all questions. All pertinent positives and negatives obtained are included in the HPI. PHYSICAL EXAM: Vital Signs: Temperature 96.8, heart rate 70, respiratory rate 14, blood pressure 170/81, O2 saturation is 98% on 2 L nasal cannula. General: This is a well-nourished male, lying in the PACU stretcher, in no acute distress. HEENT: Pupils are equal and round. Extraocular movements are intact. Sclerae are anicteric. Oral mucosa is most. Neck: Supple. No lymphadenopathy appreciated. Cardiac: Normal S1, S2. Heart sounds are regular rate and rhythm. No murmurs appreciated. No peripheral edema noted. Distal pulses are 2+ and present, both at radial sites and dorsalis pedal sites. Lungs : Clear to auscultation anteriorly. Abdomen: Soft. There are hypoactive bowel sounds. Abdomen with midline incision dressing and right and lap site dressing. All dressings are clear, dry, and intact. They were not removed, as he is postop day 0. Musculoskeletal: There is no clubbing or cyanosis. Skin: With surgical incisions intact, otherwise appears grossly intact. Neurologic : He is drowsy, but does arouse the voice and tactile stimuli. He does answer appropriately, although response is very slow secondary to anesthesia. He is able to all extremities. ASSESSMENT AND PLAN: This is a 63-year-old gentleman seen today in consultation following an elective laparoscopic sigmoid colectomy with lysis of adhesion. He is postop day 0. 1. Postop day 0 for laparoscopic sigmoid colectomy, management per Surgery via status post a left and right TAP block with ropivacaine. He remains n.p.o. and this will be advanced for surgery. 2. Coronary artery disease, status post PCI. He also states he has a history of multiple cardiac interventions. He is currently denying chest pain and denies chest pain prior to admission today. He currently complains of not being able to take a deep breath, although this appears to mostly be secondary to his open surgical site and regional block. He will be on telemetry. He is supported with oxygen and his O2 saturation remains in 97% to 99% range with no visible distress. We will continue to monitor his progress as he continues to recover from anesthesia and will pursue further evaluation should complaints continue or should he show signs of decompensation for respiratory status. Both Surgery and Anesthesia have evaluated the patient and are aware of the complaint. At this time, he appears stable and is in no acute distress, able to rest comfortably and maintain appropriate oxygen saturation. In regards to his history of coronary artery disease, I did review the preoperative clearance provided by Dr. Andre Morris, who recommended that Mr. Juarez continue his cardiac medications including aspirin and metoprolol, both kedar and post- operatively. Mr. Juarez was to stop his Plavix after 12/22/18 dose and then is to resume the Plavix postoperatively as per Dr. Whitmore. I have restarted his metoprolol XL tomorrow with his other p.o. medications, but there are hold parameters on this as he does seem to have low heart rate and may have some postoperative hypotension. We will also place hold parameters on his Norvasc. He should resume his other medications including his statin and Plavix when okay with Surgery. I do also note that in Dr. Morris's note that Mr. Juarez has previously had asymptomatic bradycardia. It was recommended that if this continues or if he has significant bradycardia, recommendation would be to change his metoprolol succinate to metoprolol tartrate 25 mg daily. Mr. Juarez will be monitored on telemetry while on the short stay surgical unit. 3. History of hypertension. As per above, we will continue his home medications with hold parameters in a postoperative period. 4. Hyperlipidemia. Continue atorvastatin. 5. History of gout. Resume allopurinol when able to take p.o. 6. Gastroesophageal reflux disease. Resume PPI when able to take p.o. medications. 7. FEN. He is receiving IV hydration, lactated Ringer's. 8. Deep vein thrombosis prophylaxis. Per Surgery, he is on subcu heparin and SCDs. 9. Code status: He is a full code. 10. Disposition: Per Surgery, anticipate discharge to home when medically stable. TIME SPENT: Approximately 60 minutes was spent in total for this consultation, which includes review of records, physical examination with the patient, and review of plan of care with my attending, Dr. Ramírez, who is in agreement. Thank you for of consultation. We will continue to follow Mr. Juarez. BERNABE RIVERA, JENNA [id number]/[facility] #: [id number] EYNI
[2018-12-31] MEDS: Lactated Ringers 1000 ML Bag* 1,000 ML IV SCH ×2 (04:43→16:32)
[2018-12-31] MEDS: Ketorolac INJ* 15 MG/ML 1 ML VIAL IV PUSH SCH ×4 (04:44→22:28)
[2018-12-31] MEDS: Heparin VIAL(*) 5000 UNITS/ML VIAL (FIVE THOUSAND) SUBCUT SCH ×3 (06:09→22:27)
[2018-12-31 06:26] LABS: ABS Lymphocytes 0.7 10^3/ul (1.0-4.8); ABS Monocytes 1.2 10^3/ul (0-0.8); ABS Neutrophils 16.3 10^3/ul (1.5-7.7); Hematocrit 45 % (42-52); Hemoglobin 14.4 g/dL (14.0-18.0); Lymphocyte % 3.9 %; Mean Corpuscular HGB Conc 33 g/dL (31-36); Mean Corpuscular Hemoglobin 27 pg (27-31); Mean Corpuscular Volume 82 fL (80-94); Mean Platelet Volume 7.5 fL (7.4-10.4); Nucleated Red Blood Cells % 0.1; Platelet Count 260 10^3/uL (150-450); Red Blood Count 5.45 10^6 /uL (4.18-5.48); Red Cell Distribution Width 22 % (10-15); White Blood Count 18.2 10^3/uL (3.5-10.8)
[2018-12-31 06:42] LABS: BUN/Creatinine Ratio 19.4 (8-20); Calcium 9.6 mg/dL (8.6-10.3); EGFR African American 133.4 (>60); EGFR Non-African American 110.3 (>60); Potassium 4.9 mmol/L (3.5-5.0)
[2018-12-31] MEDS ORDERED: amLODIPine TAB* 5 MG PO SCH (09:00)
[2018-12-31] MEDS: Allopurinol TAB* 300 MG PO SCH (09:53)
[2018-12-31] MEDS: Pantoprazole TAB * 40 MG TAB PO SCH (09:53)
[2018-12-31] MEDS: Aspirin EC TAB* 81 MG TAB.EC PO SCH (09:53)
[2018-12-31] MEDS: amLODIPine TAB* 5 MG PO SCH (09:57)
[2018-12-31] MEDS: Metoprolol Succinate XL TAB* 25 MG PO SCH (09:59)
--- NOTE | 2018-12-31 11:59 | PN ---
Progress Note - Progress Note Date of Service: 12/31/18 SOAP: Subjective: Pt seen and examined. Ambulting. Positive abdo pian. Case d/w pt, questions answered. no nausea, no appetite Objective: Temp Pulse Resp BP Pulse Ox 97.7 F 60 16 145/68 93 12/31/18 11:11 12/31/18 11:11 12/31/18 11:11 12/31/18 11:11 12/31/18 11:11 Intake & Output 12/30/18 12/31/18 12/31/18 22:59 06:59 14:59 Intake Total 3500 0 Output Total 575 2000 Balance 2925 -2000 a and ox3 abdo: soft/ tender/ distended dressing intact ext mild edema, no calf tenderness labs noted Assessment: POD 1 sigmoid colectomy Plan: d/c mason strict io pain control OOB
--- NOTE | 2018-12-31 15:09 | PN ---
Subjective Date of Service: 12/31/18 Interval History: Mr. Juarez is feeling fine today. Having 7/10 pain, but pain medications are effective. Pain is band-like across his mid-abdomen. Denies CP, SOB, N/V. Has not been up ambulating much, but would like to. No concerns from nursing. Family History: Unchanged from Admission Social History: Unchanged from Admission Past Medical History: Unchanged from Admission Objective Active Medications: Allopurinol (Zyloprim Tab*) 300 mg PO QAM [facility] Amlodipine Besylate (Norvasc Tab*) 10 mg PO QAM [facility] Aspirin (Aspirin Ec Tab*) 81 mg PO QAM [facility] Heparin Sodium (Porcine) (Heparin Vial(*)) 5,000 units SUBCUT Q8HR [facility] Lactated Ringer's (Lactated Ringers 1000 Ml Bag*) 1,000 mls @ 125 mls/hr IV PER RATE [facility] Hydromorphone HCl (Dilaudid [employer] Black Trainer*) 20 mg in 20 mls @ 0 mls/hr TRAUMA THERAPIST .change Q24H [facility]; Protocol Ketorolac Tromethamine (Toradol Inj*) 15 mg IV PUSH Q6H [facility] Metoprolol Succinate (Toprol Xl Tab*) 25 mg PO QAM [facility] Naloxone HCl (Narcan*) 0.08 mg IV PUSH .Q2MIN PRN OVERSEDATION Ondansetron HCl (Zofran Inj*) 4 mg IV Q4H PRN NAUSEA/VOMITING Pantoprazole Sodium (Protonix Tab*) 40 mg PO QAM [facility]; Protocol Vital Signs - 8 hr 12/31/18 12/31/18 12/31/18 07:35 08:00 08:49 Temperature 97.5 F Pulse Rate 62 Respiratory 16 16 18 Rate Blood Pressure 145/68 (mmHg) O2 Sat by Pulse 96 Oximetry 12/31/18 12/31/18 12/31/18 08:51 11:11 14:00 Temperature 97.7 F Pulse Rate 62 60 Respiratory 16 16 18 Rate Blood Pressure 145/68 145/68 (mmHg) O2 Sat by Pulse 96 93 96 Oximetry Oxygen Devices in Use Now: None Appearance: Middle-aged male laying in bed in NAD Eyes: No Scleral Icterus Ears/Nose/Mouth/Throat: Mucous Membranes Moist Neck: NL Appearance and Movements; NL JVP, Trachea Midline Respiratory: Symmetrical Chest Expansion and Respiratory Effort, Clear to Auscultation Cardiovascular: NL Sounds; No Murmurs; No JVD, RRR Abdominal: - - Soft, tender throughout Extremities: No Edema Neurological: Alert and Oriented x 3 Lines/Tubes/Other Access: Clean, Dry and Intact Peripheral IV Result Diagrams: 12/31/18 06:12 12/31/18 06:15 Assess/Plan/Problems-Billing Assessment: Mr. Juarez is a 63 yo M with PMH of recurrent diverticulitis, CAD s/p 7 stents , HTN, HLD, and GERD; who presented for an elective sigmoid colectomy. - Patient Problems (1) Status post laparoscopic colectomy Code(s): Z90.49 - ACQUIRED ABSENCE OF OTHER SPECIFIED PARTS OF DIGESTIVE TRACT Comment: - POD #1 - Management per Surgery (2) CAD (coronary artery disease) Code(s): I25.10 - ATHSCL HEART DISEASE OF [place] CORONARY ARTERY W/O ANG PCTRS Comment: - History of 7 stents - Should resume Plavix when cleared by Surgery - Continue metoprolol, aspirin; resume atorvastatin (3) Hypertension Code(s): I10 - ESSENTIAL (PRIMARY) HYPERTENSION Comment: - Slightly hypertensive, SBP 140s - Continue amlodipine, metoprolol (4) GERD (gastroesophageal reflux disease) Code(s): K21.9 - GASTRO-ESOPHAGEAL REFLUX DISEASE WITHOUT ESOPHAGITIS Comment : - Continue pantoprazole (5) Gout Code(s): M10.9 - GOUT, UNSPECIFIED Comment: - Continue allopurinol (6) DVT prophylaxis Comment: - Heparin SQ (7) Full code status Code(s): Z78.9 - OTHER SPECIFIED HEALTH STATUS Comment: Status and Disposition: Inpatient. Dispo per Surgery. Thank you for this consultation. We will continue to follow distantly. Attending: Tiffanie Franklin
[2018-12-31] MEDS ORDERED: Lorazepam PYXIS KEY PRN (19:56)
[2018-12-31] MEDS ORDERED: LORazepam INJ* 2 MG/ML 1 ML VIAL IV PUSH ONE (20:00)
[2019-01-01] MEDS: Lactated Ringers 1000 ML Bag* 1,000 ML IV SCH ×3 (00:30→16:26)
[2019-01-01] MEDS: Heparin VIAL(*) 5000 UNITS/ML VIAL (FIVE THOUSAND) SUBCUT SCH ×3 (05:20→22:20)
[2019-01-01] MEDS: Ketorolac INJ* 15 MG/ML 1 ML VIAL IV PUSH SCH ×3 (05:20→16:26)
[2019-01-01] MEDS: amLODIPine TAB* 5 MG PO SCH (08:30)
[2019-01-01] MEDS: Atorvastatin* 40 MG TAB PO SCH (08:30)
[2019-01-01] MEDS: Aspirin EC TAB* 81 MG TAB.EC PO SCH (08:30)
[2019-01-01] MEDS: Pantoprazole TAB * 40 MG TAB PO SCH (08:30)
[2019-01-01] MEDS: Allopurinol TAB* 300 MG PO SCH (08:30)
[2019-01-01] MEDS: Metoprolol Succinate XL TAB* 25 MG PO SCH (08:35)
--- NOTE | 2019-01-01 10:10 | PN ---
Progress Note - Progress Note Date of Service: 01/01/19 SOAP: Subjective: Pt seen and examined. No flatus. No nausea. Pain with coughing Only OOB once with me yesterday. Voiding on own. No appetite Objective: Temp Pulse Resp BP Pulse Ox 97.6 F 69 18 138/60 96 01/01/19 07:21 01/01/19 07:21 01/01/19 08:00 01/01/19 07:21 01/01/19 08:00 Intake & Output 12/31/18 01/01/19 01/01/19 22:59 06:59 14:59 Intake Total 1349 980 Output Total 1475 1250 300 Balance -126 -270 -300 a nd o x3, nad abdo: soft/ mild distension/ min. tenderness dressing intact ext wnl Assessment: POD 2 sigmoid colectomy Plan: [advance diet d/c detention attendant OOB labs in am
[2019-01-01] MEDS: HYDROmorphone INJ1* 1 MG/ML SYRINGE IV SLOW PU PRN ×2 (13:48→22:20)
[2019-01-02] MEDS: Lactated Ringers 1000 ML Bag* 1,000 ML IV SCH ×2 (00:22→08:43)
[2019-01-02] MEDS: HYDROmorphone INJ1* 1 MG/ML SYRINGE IV SLOW PU PRN ×4 (06:03→20:52)
[2019-01-02] MEDS: Heparin VIAL(*) 5000 UNITS/ML VIAL (FIVE THOUSAND) SUBCUT SCH ×3 (06:04→20:56)
[2019-01-02 07:16] LABS: ABS Basophils 0.1 10^3/ul (0-0.2); ABS Eosinophils 0.4 10^3/ul (0-0.6); ABS Lymphocytes 1.2 10^3/ul (1.0-4.8); ABS Monocytes 0.7 10^3/ul (0-0.8); ABS Neutrophils 6.1 10^3/ul (1.5-7.7); Eosinophil % 4.7 %; Hematocrit 42 % (42-52); Hemoglobin 14.2 g/dL (14.0-18.0); Lymphocyte % 14.2 %; Mean Corpuscular HGB Conc 34 g/dL (31-36); Mean Corpuscular Hemoglobin 27 pg (27-31); Mean Corpuscular Volume 81 fL (80-94); Mean Platelet Volume 7.6 fL (7.4-10.4); Platelet Count 253 10^3/uL (150-450); Red Blood Count 5.19 10^6 /uL (4.18-5.48); Red Cell Distribution Width 22 % (10-15); White Blood Count 8.5 10^3/uL (3.5-10.8)
[2019-01-02 07:47] LABS: BUN/Creatinine Ratio 12.7 (8-20); Calcium 8.9 mg/dL (8.6-10.3); EGFR African American 119.9 (>60); EGFR Non-African American 99.1 (>60); Phosphorus 2.8 mg/dL (2.5-5.0); Potassium 3.7 mmol/L (3.5-5.0)
[2019-01-02] MEDS: Allopurinol TAB* 300 MG PO SCH (09:32)
[2019-01-02] MEDS: Aspirin EC TAB* 81 MG TAB.EC PO SCH (09:33)
[2019-01-02] MEDS: Metoprolol Succinate XL TAB* 25 MG PO SCH (09:33)
[2019-01-02] MEDS: Atorvastatin* 40 MG TAB PO SCH (09:33)
[2019-01-02] MEDS: Pantoprazole TAB * 40 MG TAB PO SCH (09:35)
[2019-01-02] MEDS: amLODIPine TAB* 5 MG PO SCH (09:39)
--- NOTE | 2019-01-02 10:12 | PN ---
Progress Note - Progress Note Date of Service: 01/02/19 SOAP: Subjective: Pt seen and examined. Doing well. no flatus. less abdo pain Objective: Temp Pulse Resp BP Pulse Ox 98.0 F 57 18 146/76 91 01/02/19 07:13 01/02/19 07:13 01/02/19 09:31 01/02/19 07:13 01/02/19 07:13 Intake & Output 01/01/19 01/02/19 01/02/19 22:59 06:59 14:59 Intake Total 540 1080 1024 Output Total 850 Balance 354 189 9864 a and ox3, and lungs clear abdo: soft/ less distended/ incisional tendernss dressing removed, no redness ext wnl labs reviewed Assessment: POD 3 sigmoid colecotmy, SOLITARIO Plan: change IVF clears for now
[2019-01-02] MEDS: D5W 1/2 NS KCl 20 Meq 1000 ML* 1,000 ML IV SCH (10:41)
--- NOTE | 2019-01-02 16:56 | PN ---
Progress Note - Progress Note Date of Service: 01/02/19 Note: S: This is a 63 y/o male s/p sigmoid colectomy on [id number]. Patient's THREAD MARKER was discontinued today and he states his pain is well-controlled. Only has some pain with movement. Denies pain when lying in bed. Patient has not passed flatus. On clear liquid diet. Ambulating regularly (states 4 spears walks today), as well as regular use of incentive spirometry. Denies nausea, vomiting, fever, chest pain, SOB, difficulty or pain with urination. Active medications are as follows: Allopurinol (Zyloprim Tab*) 300 mg PO [facility] Last Admin: 01/02/19 09:32 Dose: 300 mg Amlodipine Besylate (Norvasc Tab*) 10 mg PO [facility] Last Admin: 01/02/19 09:39 Dose: 10 mg Aspirin (Aspirin Ec Tab*) 81 mg PO [facility] Last Admin: 01/02/19 09:33 Dose: 81 mg Atorvastatin Calcium (Lipitor*) 40 mg PO [facility] Last Admin: 01/02/19 09:33 Dose: 40 mg Heparin Sodium (Porcine) (Heparin Vial(*)) 5,000 units SUBCUT Q8HR [facility] Last Admin: 01/02/19 13:50 Dose: 5,000 units Hydromorphone HCl (Dilaudid Inj1s*) 0.5 mg IV SLOW PU Q3H PRN PRN Reason: PAIN Last Admin: 01/02/19 13:50 Dose: 0.5 mg Potassium Chloride/Dextrose (D5w 1/2 Ns Kcl 20 Meq 1000 Ml*) 1,000 mls @ 75 mls /hr IV PER RATE [facility] Last Admin: 01/02/19 10:41 Dose: 75 mls/hr Metoprolol Succinate (Toprol Xl Tab*) 25 mg PO [facility] Last Admin: 01/02/19 09:33 Dose: Not Given Miscellaneous (Ativan Pyxis Ramos) 1 ea N/A .PYXIS RAMOS PRN PRN Reason: PER PROTOCOL Naloxone HCl (Narcan*) 0.08 mg IV PUSH .Q2MIN PRN PRN Reason: OVERSEDATION Ondansetron HCl (Zofran Inj*) 4 mg IV Q4H PRN PRN Reason: NAUSEA/VOMITING Pantoprazole Sodium (Protonix Tab*) 40 mg PO QAM [facility]; Protocol Last Admin: 01/02/19 09:35 Dose: 40 mg O: Vital Signs Temp 98.2 F 01/02/19 15:24 Pulse 77 01/02/19 15:24 Resp 17 01/02/19 15:24 BP 138/70 01/02/19 15:24 Pulse Ox 95 01/02/19 15:24 Intake & Output 01/01/19 01/02/19 01/02/19 18:59 06:59 18:59 Intake Total 380 1440 1506 Output Total 300 850 550 Balance 80 590 956 Intake: IV Fluids 980 1266 D5W 1/2 NS 20 meq KCL 0 LR 980 1266 Oral 380 460 240 Output: Urine 300 850 550 Other: Estimated Void Medium Medium Medium # Bowel Movements 0 # Voids 3 2 General: patient is non-toxic appearing in no acute distress lying supine in bed. A&O x 3. Cardio: Regular rate and rhythm. S1 and S2 auscultated without S3 or S4. No peripheral edema Respiratory: Lungs clear to auscultation throughout bilaterally. Abdomen/surgical site: Angel in place without erythema or purulent drainage. Dr. Whitmore removed dressing today. Bowel sounds hypoactive and scant throughout. Slight tenderness to palpation. A: POD #3 sigmoid colectomy. Doing well. P: continue clear liquid diet continue ambulation and regular incentive spirometry use await flatus
--- NOTE | 2019-01-02 18:18 | PN ---
Subjective Date of Service: 01/02/19 Interval History: Patient seen and examined. States some abdominal pain, but well controlled. Tolerating CLD without issue, no n/v/d. Denies fevers or chills. No further complaints. Family History: Unchanged from Admission Social History: Unchanged from Admission Past Medical History: Unchanged from Admission Objective Active Medications: Allopurinol (Zyloprim Tab*) 300 mg PO [facility] Last Admin: 01/02/19 09:32 Dose: 300 mg Amlodipine Besylate (Norvasc Tab*) 10 mg PO [facility] Last Admin: 01/02/19 09:39 Dose: 10 mg Aspirin (Aspirin Ec Tab*) 81 mg PO [facility] Last Admin: 01/02/19 09:33 Dose: 81 mg Atorvastatin Calcium (Lipitor*) 40 mg PO [facility] Last Admin: 01/02/19 09:33 Dose: 40 mg Heparin Sodium (Porcine) (Heparin Vial(*)) 5,000 units SUBCUT Q8HR [facility] Last Admin: 01/02/19 13:50 Dose: 5,000 units Hydromorphone HCl (Dilaudid Inj1s*) 0.5 mg IV SLOW PU Q3H PRN PRN Reason: PAIN Last Admin: 01/02/19 17:39 Dose: 0.5 mg Potassium Chloride/Dextrose (D5w 1/2 Ns Kcl 20 Meq 1000 Ml*) 1,000 mls @ 75 mls /hr IV PER RATE [facility] Last Admin: 01/02/19 10:41 Dose: 75 mls/hr Metoprolol Succinate (Toprol Xl Tab*) 25 mg PO [facility] Last Admin: 01/02/19 09:33 Dose: Not Given Miscellaneous (Ativan Pyxis Ramos) 1 ea N/A .PYXIS RAMOS PRN PRN Reason: PER PROTOCOL Naloxone HCl (Narcan*) 0.08 mg IV PUSH .Q2MIN PRN PRN Reason: OVERSEDATION Ondansetron HCl (Zofran Inj*) 4 mg IV Q4H PRN PRN Reason: NAUSEA/VOMITING Pantoprazole Sodium (Protonix Tab*) 40 mg PO [facility]; Protocol Last Admin: 01/02/19 09:35 Dose: 40 mg Vital Signs - 8 hr 01/02/19 01/02/19 01/02/19 11:20 13:50 15:24 Temperature 98.8 F 98.2 F Pulse Rate 61 77 Respiratory 18 18 17 Rate Blood Pressure 153/77 138/70 (mmHg) O2 Sat by Pulse 92 95 Oximetry 01/02/19 01/02/19 16:00 17:39 Temperature Pulse Rate Respiratory 18 Rate Blood Pressure (mmHg) O2 Sat by Pulse 95 Oximetry Oxygen Devices in Use Now: None Appearance: alert, NAD Eyes: No Scleral Icterus, PERRLA Ears/Nose/Mouth/Throat: NL Teeth, Lips, Gums, Mucous Membranes Moist Neck: NL Appearance and Movements; NL JVP, Trachea Midline Respiratory: Symmetrical Chest Expansion and Respiratory Effort, Clear to Auscultation Cardiovascular: NL Sounds; No Murmurs; No JVD, RRR, No Edema Abdominal: - - moderately tender, no erytherma, hypoactive BS Extremities: No Edema Skin: No Rash or Ulcers Neurological: Alert and Oriented x 3 Nutrition: - - CLD Result Diagrams: 01/02/19 06:47 01/02/19 06:47 Assess/Plan/Problems-Billing Assessment: Mr. Juarez is a 63 yo M with PMH of recurrent diverticulitis, CAD s/p 7 stents , HTN, HLD, and GERD; who presented for an elective sigmoid colectomy. - Patient Problems (1) Status post laparoscopic colectomy Code(s): Z90.49 - ACQUIRED ABSENCE OF OTHER SPECIFIED PARTS OF DIGESTIVE TRACT SNOMED Code(s): 673377466 Comment: - POD2 - Management per Surgery (2) GERD (gastroesophageal reflux disease) Code(s): K21.9 - GASTRO-ESOPHAGEAL REFLUX DISEASE WITHOUT ESOPHAGITIS SNOMED Code(s): 486390299 Comment: - Continue pantoprazole (3) CAD (coronary artery disease) Code(s): I25.10 - ATHSCL HEART DISEASE OF [place] CORONARY ARTERY W/O ANG PCTRS SNOMED Code(s): 46045442 Comment: - History of 7 stents - Should resume Plavix when cleared by Surgery - Continue metoprolol, aspirin; resume atorvastatin (4) DVT prophylaxis Code(s): AON0398 - SNOMED Code(s): 938681399 Comment: - Heparin SQ (5) Full code status Code(s): Z78.9 - OTHER SPECIFIED HEALTH STATUS SNOMED Code(s): 781479928 Comment: Status and Disposition: Inpatient. Dispo per Surgery. Medically optimized, thank you for this consultation. We will continue to follow distantly.
[2019-01-03] MEDS: D5W 1/2 NS KCl 20 Meq 1000 ML* 1,000 ML IV SCH ×2 (00:01→13:16)
[2019-01-03] MEDS: HYDROmorphone INJ1* 1 MG/ML SYRINGE IV SLOW PU PRN ×3 (01:28→22:56)
[2019-01-03] MEDS: Heparin VIAL(*) 5000 UNITS/ML VIAL (FIVE THOUSAND) SUBCUT SCH ×3 (06:14→22:58)
--- NOTE | 2019-01-03 08:05 | PN ---
Progress Note - Progress Note Date of Service: 01/03/19 SOAP: Subjective: Pt seen and examined. continued abdo pain. No nausea, pos burping hiccoughs no flatus Objective: Temp Pulse Resp BP Pulse Ox 98.6 F 55 17 161/75 93 01/03/19 07:23 01/03/19 07:23 01/03/19 07:23 01/03/19 07:23 01/03/19 07:23 Intake & Output 01/02/19 01/03/19 01/03/19 22:59 06:59 14:59 Intake Total 450 1492 Output Total 250 800 Balance 200 692 a and o x3 lungs clear abdo: soft/ ND/ incisional tenderness staple line intact, min redness at upper portion, probed hypoactive BS ext wnl Assessment: POD 4 SOLITARIO, sigmoid colectomy Plan: clears only for now IVF pain control labs in am f/u path
[2019-01-03] MEDS: Metoprolol Succinate XL TAB* 25 MG PO SCH (09:54)
[2019-01-03] MEDS: Atorvastatin* 40 MG TAB PO SCH (09:54)
[2019-01-03] MEDS: Aspirin EC TAB* 81 MG TAB.EC PO SCH (09:55)
[2019-01-03] MEDS: amLODIPine TAB* 5 MG PO SCH (09:55)
[2019-01-03] MEDS: Allopurinol TAB* 300 MG PO SCH (09:55)
[2019-01-03] MEDS: Pantoprazole TAB * 40 MG TAB PO SCH (09:55)
[2019-01-03] MEDS ORDERED: LORazepam TAB(*) 0.5 MG PO PRN (14:00)
[2019-01-03] MEDS ORDERED: LORazepam TAB(*) 0.5 MG ONE (14:06)
[2019-01-04] MEDS: D5W 1/2 NS KCl 20 Meq 1000 ML* 1,000 ML IV SCH ×2 (02:49→15:03)
[2019-01-04] MEDS: Heparin VIAL(*) 5000 UNITS/ML VIAL (FIVE THOUSAND) SUBCUT SCH ×3 (06:00→22:15)
[2019-01-04] MEDS: HYDROmorphone INJ1* 1 MG/ML SYRINGE IV SLOW PU PRN ×3 (06:00→19:30)
[2019-01-04 08:09] LABS: ABS Basophils 0.1 10^3/ul (0-0.2); ABS Eosinophils 0.6 10^3/ul (0-0.6); ABS Lymphocytes 1.2 10^3/ul (1.0-4.8); ABS Monocytes 0.6 10^3/ul (0-0.8); ABS Neutrophils 4.9 10^3/ul (1.5-7.7); Hematocrit 44 % (42-52); Hemoglobin 14.8 g/dL (14.0-18.0); Lymphocyte % 16.7 %; Mean Corpuscular HGB Conc 34 g/dL (31-36); Mean Corpuscular Hemoglobin 27 pg (27-31); Mean Corpuscular Volume 81 fL (80-94); Mean Platelet Volume 7.5 fL (7.4-10.4); Nucleated Red Blood Cells % 0.1; Platelet Count 316 10^3/uL (150-450); Red Blood Count 5.42 10^6 /uL (4.18-5.48); Red Cell Distribution Width 22 % (10-15); White Blood Count 7.4 10^3/uL (3.5-10.8)
[2019-01-04 08:23] LABS: BUN/Creatinine Ratio 10.5 (8-20); Calcium 9.1 mg/dL (8.6-10.3); EGFR African American 96.9 (>60); EGFR Non-African American 80.1 (>60); Magnesium 2.2 mg/dL (1.9-2.7); Phosphorus 2.9 mg/dL (2.5-5.0); Potassium 3.7 mmol/L (3.5-5.0)
--- NOTE | 2019-01-04 08:26 | PN ---
Progress Note - Progress Note Date of Service: 01/04/19 Note: S: This is a 63 y/o male s/p sigmoid colectomy on 30DEC2018. Patient has not passed flatus. Ambulating well. Pain is well controlled and minimal. Sleeping well. Continuing clear liquid diet without difficulty. Denies fever, chills, nausea, vomiting, chest pain, SOB. Active medications are as follows: Allopurinol (Zyloprim Tab*) 300 mg PO [facility] Last Admin: 01/03/19 09:55 Dose: 300 mg Amlodipine Besylate (Norvasc Tab*) 10 mg PO [facility] Last Admin: 01/03/19 09:55 Dose: 10 mg Aspirin (Aspirin Ec Tab*) 81 mg PO [facility] Last Admin: 01/03/19 09:55 Dose: 81 mg Atorvastatin Calcium (Lipitor*) 40 mg PO [facility] Last Admin: 01/03/19 09:54 Dose: 40 mg Heparin Sodium (Porcine) (Heparin Vial(*)) 5,000 units SUBCUT Q8HR [facility] Last Admin: 01/04/19 06:00 Dose: 5,000 units Hydromorphone HCl (Dilaudid Inj1s*) 0.5 mg IV SLOW PU Q3H PRN PRN Reason: PAIN Last Admin: 01/04/19 06:00 Dose: 0.5 mg Potassium Chloride/Dextrose (D5w 1/2 Ns Kcl 20 Meq 1000 Ml*) 1,000 mls @ 75 mls /hr IV PER RATE [facility] Last Admin: 01/04/19 02:49 Dose: 75 mls/hr Lorazepam (Ativan Tab(*)) 0.5 mg PO Q6H PRN PRN Reason: ANXIETY Last Admin: 01/03/19 14:06 Dose: 0.5 mg Metoprolol Succinate (Toprol Xl Tab*) 25 mg PO [facility] Last Admin: 01/03/19 09:54 Dose: 25 mg Miscellaneous (Ativan Pyxis Ramos) 1 ea N/A .PYXIS RAMOS PRN PRN Reason: PER PROTOCOL Naloxone HCl (Narcan*) 0.08 mg IV PUSH .Q2MIN PRN PRN Reason: OVERSEDATION Ondansetron HCl (Zofran Inj*) 4 mg IV Q4H PRN PRN Reason: NAUSEA/VOMITING Pantoprazole Sodium (Protonix Tab*) 40 mg PO QAM [facility]; Protocol Last Admin: 01/03/19 09:55 Dose: 40 mg O: Vital Signs Temp 98.0 F 01/04/19 07:21 Pulse 51 01/04/19 07:21 Resp 16 01/04/19 07:21 BP 139/68 01/04/19 07:21 Pulse Ox 95 01/04/19 07:21 Intake & Output 01/03/19 01/04/19 01/04/19 18:59 06:59 18:59 Intake Total 120 1948 Output Total 250 350 Balance -130 1598 Intake: IV Fluids 988 D5W 1/2 NS 20 meq KCL 988 Oral 120 960 Output: Urine 250 350 Other: # Bowel Movements 0 General: Patient is lying in bed in no acute distress, non-toxic appearing. A&O x 3. Cardio: Regular rate and rhythm. S1 and S2 auscultated without S3 or S4. No peripheral edema. Respiratory: Lungs clear to auscultation throughout bilaterally. No wheezes or rales. Abdomen/surgical site: treva in place without surrounding erythema or purulent drainage. Bowel sounds hypoactive in all four quadrants. No tenderness to palpation. Abdomen slightly distended. A: POD #5 sigmoid colectomy, doing well. P: continue clear liquid diet continue pain control continue regular ambulation and use of incentive spirometry await flatus
[2019-01-04] MEDS: Aspirin EC TAB* 81 MG TAB.EC PO SCH (09:46)
[2019-01-04] MEDS: Metoprolol Succinate XL TAB* 25 MG PO SCH (09:46)
[2019-01-04] MEDS: amLODIPine TAB* 5 MG PO SCH (09:46)
[2019-01-04] MEDS: Atorvastatin* 40 MG TAB PO SCH (09:47)
[2019-01-04] MEDS: Pantoprazole TAB * 40 MG TAB PO SCH (09:47)
[2019-01-04] MEDS: Allopurinol TAB* 300 MG PO SCH (09:47)
--- NOTE | 2019-01-04 11:49 | PN ---
Progress Note - Progress Note Date of Service: 01/04/19 SOAP: Subjective: Pt seen and examined. DOing well. No flatus. No nausea. Continued abdo pain Objective: Temp Pulse Resp BP Pulse Ox 97.9 F 52 16 147/78 96 01/04/19 11:16 01/04/19 11:16 01/04/19 11:16 01/04/19 11:16 01/04/19 11:16 Intake & Output 01/03/19 01/04/19 01/04/19 22:59 06:59 14:59 Intake Total 480 1468 300 Output Total 200 150 Balance 280 1318 300 a and o x3, nad lungs clear abdo: soft/ min distension/ NT staple line intact; no redness no calf tenderness labs noted Assessment: POD 5 SOLITARIO, sigmoid colectomy, ileus Plan: IVF, clears pain control OOB
--- NOTE | 2019-01-04 19:09 | PN ---
Hospitalist Progress Note Date of Service: 01/04/19 Patient chart and labs evaluated. Appears medically stable. Continuing on CLD until flatus returns. No alterations in labs or VS. Will sign off. Please feel free to reconsult if needed. Thank you.
[2019-01-05] MEDS: HYDROmorphone INJ1* 1 MG/ML SYRINGE IV SLOW PU PRN ×2 (03:30→22:31)
[2019-01-05] MEDS: D5W 1/2 NS KCl 20 Meq 1000 ML* 1,000 ML IV SCH ×2 (03:35→16:45)
[2019-01-05] MEDS: Heparin VIAL(*) 5000 UNITS/ML VIAL (FIVE THOUSAND) SUBCUT SCH ×3 (05:29→21:19)
--- NOTE | 2019-01-05 08:58 | PN ---
Progress Note - Progress Note Date of Service: 01/05/19 Note: S: POD# 6. Min pain. No flatus or BM. Occ burping and hiccupping. Ambulating. Denies SOB. O: Vital Signs - 8 hr 01/05/19 01/05/19 01/05/19 03:30 04:30 04:31 Temperature 97.7 F Pulse Rate 52 Respiratory 18 18 16 Rate Blood Pressure 128/48 (mmHg) O2 Sat by Pulse 97 Oximetry 01/05/19 01/05/19 01/05/19 05:36 07:22 08:00 Temperature 98.2 F Pulse Rate 49 Respiratory 11 18 Rate Blood Pressure 111/71 (mmHg) O2 Sat by Pulse 96 96 Oximetry Intake and Output Last 24 Hours 01/03/19 01/04/19 01/05/19 01/06/19 06:59 06:59 06:59 06:59 Intake Total 3448 2068 1915 Output Total 3193 130 9131 Balance 1848 1468 715 Intake: IV Fluids 2258 988 935 D5W 1/2 NS 20 meq KCL 992 988 935 LR 1266 Oral 1190 1080 980 Output: Urine 7802 286 3351 Other: Estimated Void Medium # Bowel Movements 0 0 # Voids 3 Gen: lying in bed; appears comfortable Heart: reg Lungs: clear Abd: incisions ok; no s/sx of wound infection; BS: few; soft; no sig tenderness A: s/p sigmoid rsxn, SOLITARIO; ileus P: discussed w/ Dr. Whitmore. Will try full liqs.
[2019-01-05] MEDS: Aspirin EC TAB* 81 MG TAB.EC PO SCH (09:10)
[2019-01-05] MEDS: Clopidogrel TAB* 75 MG PO SCH (09:10)
[2019-01-05] MEDS: Pantoprazole TAB * 40 MG TAB PO SCH (09:10)
[2019-01-05] MEDS: Allopurinol TAB* 300 MG PO SCH (09:10)
[2019-01-05] MEDS: Atorvastatin* 40 MG TAB PO SCH (09:10)
[2019-01-05] MEDS: Metoprolol Succinate XL TAB* 25 MG PO SCH (09:11)
[2019-01-05] MEDS: amLODIPine TAB* 5 MG PO SCH (09:15)
[2019-01-06] MEDS: D5W 1/2 NS KCl 20 Meq 1000 ML* 1,000 ML IV SCH (06:04)
[2019-01-06] MEDS: Heparin VIAL(*) 5000 UNITS/ML VIAL (FIVE THOUSAND) SUBCUT SCH (06:05)
[2019-01-06 07:25] VITALS: BP 142/71
--- NOTE | 2019-01-06 08:23 | PN ---
Progress Note - Progress Note Date of Service: 01/06/19 Note: S: This is a 63 y/o male s/p sigmoid colectomy on 30DEC2018. Patient passed flatus last night around 7:30 PM. No BM. States he is much more comfortable now. Changed to full liquid diet yesterday. Pain is minimal and tolerated well. Ambulating and urinating well. Still hiccuping and burping often. Using incentive spirometry regularly. Denies fever, chills, SOB, chest pain, nausea, vomiting. Active medications are as follows: Allopurinol (Zyloprim Tab*) 300 mg PO [facility] Last Admin: 01/05/19 09:10 Dose: 300 mg Amlodipine Besylate (Norvasc Tab*) 10 mg PO [facility] Last Admin: 01/05/19 09:15 Dose: 10 mg Aspirin (Aspirin Ec Tab*) 81 mg PO [facility] Last Admin: 01/05/19 09:10 Dose: 81 mg Atorvastatin Calcium (Lipitor*) 40 mg PO [facility] Last Admin: 01/05/19 09:10 Dose: 40 mg Clopidogrel Bisulfate (Plavix Tab*) 75 mg PO [facility] Last Admin: 01/05/19 09:10 Dose: 75 mg Heparin Sodium (Porcine) (Heparin Vial(*)) 5,000 units SUBCUT Q8HR [facility] Last Admin: 01/06/19 06:05 Dose: 5,000 units Hydromorphone HCl (Dilaudid Inj1s*) 0.5 mg IV SLOW PU Q3H PRN PRN Reason: PAIN Last Admin: 01/05/19 22:31 Dose: 0.5 mg Potassium Chloride/Dextrose (D5w 1/2 Ns Kcl 20 Meq 1000 Ml*) 1,000 mls @ 75 mls /hr IV PER RATE [facility] Last Admin: 01/06/19 06:04 Dose: 75 mls/hr Lorazepam (Ativan Tab(*)) 0.5 mg PO Q6H PRN PRN Reason: ANXIETY Last Admin: 01/03/19 14:06 Dose: 0.5 mg Metoprolol Succinate (Toprol Xl Tab*) 25 mg PO [facility] Last Admin: 01/05/19 09:11 Dose: 25 mg Miscellaneous (Ativan Pyxis Ramos) 1 ea N/A .PYXIS RAMOS PRN PRN Reason: PER PROTOCOL Naloxone HCl (Narcan*) 0.08 mg IV PUSH .Q2MIN PRN PRN Reason: OVERSEDATION Ondansetron HCl (Zofran Inj*) 4 mg IV Q4H PRN PRN Reason: NAUSEA/VOMITING Pantoprazole Sodium (Protonix Tab*) 40 mg PO QAM [facility]; Protocol Last Admin: 01/05/19 09:10 Dose: 40 mg O: Vital Signs Temp 98.1 F 01/06/19 07:23 Pulse 49 01/06/19 07:23 Resp 16 01/06/19 07:23 BP 142/71 01/06/19 07:23 Pulse Ox 95 01/06/19 07:23 Intake & Output 01/05/19 01/06/19 01/06/19 18:59 06:59 18:59 Intake Total 1550 1470 Output Total 350 1025 Balance 1200 445 Intake: IV Fluids 990 D5W 1/2 NS 20 meq KCL 990 Oral 1550 480 Output: Urine 350 1025 Other: Estimated Void Medium # Bowel Movements 0 # Voids 1 1 General: patient lying comfortably in bed in no acute distress. A&O x 3. Cardio: regular rate and rhythm. S1 and S2 auscultated. Respiratory: lungs clear to auscultation throughout bilaterally. No wheezes or rales. Abdomen/surgical site: treva in place without erythema or purulent drainage. Bowel slightly hypoactive but more active than previously. No tenderness to palpation. A: POD #7 s/p sigmoid colectomy. Doing well and improving. P: continue full liquid diet continue ambulating and using incentive spirometry regularly continue pain control Patient voiced desire to go home today
[2019-01-06] MEDS: Atorvastatin* 40 MG TAB PO SCH (08:57)
[2019-01-06] MEDS: Pantoprazole TAB * 40 MG TAB PO SCH (08:57)
[2019-01-06] MEDS: Metoprolol Succinate XL TAB* 25 MG PO SCH (08:57)
[2019-01-06] MEDS: Clopidogrel TAB* 75 MG PO SCH (08:57)
[2019-01-06] MEDS: Aspirin EC TAB* 81 MG TAB.EC PO SCH (08:57)
[2019-01-06] MEDS: Allopurinol TAB* 300 MG PO SCH (08:57)
[2019-01-06] MEDS: amLODIPine TAB* 5 MG PO SCH (08:57)
--- NOTE | 2019-01-06 09:33 | PN ---
Progress Note - Progress Note Date of Service: 01/06/19 Note: S: POD #7. Passing flatus since last pm. Feels better. No BM. [place] full liqs. Ambulating. O: Vital Signs - 8 hr 01/06/19 01/06/19 01/06/19 03:21 07:23 09:00 Temperature 98.4 F 98.1 F Pulse Rate 49 49 Respiratory 17 16 18 Rate Blood Pressure 156/80 142/71 (mmHg) O2 Sat by Pulse 96 95 Oximetry Intake and Output Last 24 Hours 01/04/19 01/05/19 01/06/19 01/07/19 06:59 06:59 06:59 06:59 Intake Total 2068 1915 3020 Output Total 600 1200 1375 Balance 2692 125 1922 Intake: IV Fluids 988 935 990 D5W 1/2 NS 20 meq KCL 988 935 990 Oral 1892 145 5350 Output: Urine 600 1200 1375 Other: Estimated Void Medium # Bowel Movements 0 0 0 # Voids 1 Gen: comfortable; NAD Heart: mild jovanni Lungs: clear Abd: incisions ok; +BS (normoactive); soft; no sig tenderness A: s/p sigmoid colectomy, improving bowel fct P: ready for d/c; he will gradually advance diet at home over the next 3-5 days ; instructions reviewed; office f/u next wk
--- NOTE | 2019-01-06 10:28 | DS ---
CC: Dr. Cuauhtemoc Acosta at [facility] * DISCHARGE SUMMARY: DATE OF ADMISSION: 12/30/18 DATE OF DISCHARGE: 01/06/19 ATTENDING SURGEON: Dr. Cain Whitmore * (SHEYLA Seay dictating). HOSPITAL COURSE: Please refer to admission history and physical and operative note for details. Briefly, the patient was taken to the operating room on 12/30, with a history of recurrent diverticulitis. He underwent laparoscopy, which was converted to laparotomy with lysis of adhesions and sigmoid colectomy with primary anastomosis with Dr. Whitmore. His postoperative course was notable for a period of ileus, but as of the morning of discharge, he was freely passing flatus and tolerating full liquid diet. He is afebrile with stable vital signs. Incisions are healing well without evidence of infection. Abdomen is soft, nontender with normoactive bowel sounds. He is given instructions regarding wound care, activity, and diet. He will gradually transition from a full liquid diet to soft and then unrestricted diet over the next 3 to 5 days. He has a followup appointment with our office on 01/12/19. He will resume all of his usual home medications (see reconciliation form). A prescription for Percocet was e-sent to his outside pharmacy p.r.n. for stronger pain, though at this point, he is using very little narcotic analgesia. He is discharged to home in good condition. SHEYLA SEAY [id number]/[facility] #: [id number] [facility] CENTERHeriberto
== END 2019-01-06 11:05 | disposition home or self-care (01) | DRG 221 ==
LOC: AA 12-30 11:00 → SSU 12-30 20:34
PROVIDERS: ADMIT Surgery; ATTEND Surgery
PROC: 0D1M0Z4 Bypass Descending Colon to Cutaneous, Open Approach (ICD-10-PCS; 2018-12-30)
PROC: 0DN84ZZ Release Small Intestine, Percutaneous Endoscopic Approach (ICD-10-PCS; 2018-12-30)
PROC: 0DNW4ZZ Release Peritoneum, Percutaneous Endoscopic Approach (ICD-10-PCS; 2018-12-30)
PROC: 0DBN0ZZ Excision of Sigmoid Colon, Open Approach (ICD-10-PCS; principal; 2018-12-30 12:45)
DX: K57.32 Diverticulitis of large intestine without perforation or abscess without bleeding (principal); K56.7 Ileus, unspecified; K66.0 Peritoneal adhesions (postprocedural) (postinfection); I25.10 Atherosclerotic heart disease of native coronary artery without angina pectoris; E78.5 Hyperlipidemia, unspecified; M10.9 Gout, unspecified; K21.9 Gastro-esophageal reflux disease without esophagitis; E66.9 Obesity, unspecified; I10 Essential (primary) hypertension; E78.00 Pure hypercholesterolemia, unspecified; R06.6 Hiccough; Z68.36 Body mass index [BMI] 36.0-36.9, adult; Z95.5 Presence of coronary angioplasty implant and graft; Z88.6 Allergy status to analgesic agent; Z88.5 Allergy status to narcotic agent; Z87.891 Personal history of nicotine dependence; Z82.3 Family history of stroke; Z82.49 Family history of ischemic heart disease and other diseases of the circulatory system; Z72.89 Other problems related to lifestyle
CPT/HCPCS: 36415; 80048; 83735; 84100; 85025; 88307; A9270-GY; J0330; J1100; J1170; J1335; J1610; J1644; J1885; J2060; J2250; J2405; J2704; J2710; J2795; J3010

== ENCOUNTER 2020-10-13 12:31 | Inpatient (IN) ==
[2020-10-13] MEDS ORDERED: NS 0.9% 1000 ml BAG 1,000 ML IV ONE (13:00)
[2020-10-13 13:08] LABS: ABS Basophils 0.2 10^3/ul (0-0.2); ABS Eosinophils 1.2 10^3/ul (0-0.6); ABS Lymphocytes 1.1 10^3/ul (1.0-4.8); ABS Monocytes 0.5 10^3/ul (0-0.8); ABS Neutrophils 7.7 10^3/ul (1.5-7.7); Eosinophil % 11.4 %; Hematocrit 34 % (42-52); Hemoglobin 10.9 g/dL (14.0-18.0); Lymphocyte % 10.2 %; Mean Corpuscular HGB Conc 32 g/dL (31-36); Mean Corpuscular Hemoglobin 27 pg (27-31); Mean Corpuscular Volume 84 fL (80-94); Mean Platelet Volume 6.6 fL (7.4-10.4); Nucleated Red Blood Cells % 0.1; Platelet Count 494 10^3/uL (150-450); Red Blood Count 4.04 10^6 /uL (4.18-5.48); Red Cell Distribution Width 18 % (10-15); White Blood Count 10.7 10^3/uL (3.5-10.8)
[2020-10-13] MEDS ORDERED: Heparin - STEMI 5,000 UNITS/ML 1 ml VIAL IV ONE (13:14)
[2020-10-13] MEDS ORDERED: Heparin DRIP 25,000 UNITS BAG 25,000 UNITS/500 ML BAG IV SCH (13:15)
[2020-10-13 13:25] LABS: ALT 17 U/L (7-52); AST 13 U/L (13-39); Albumin 3.5 g/dL (3.2-5.2); Alkaline Phosphatase 97 U/L (34-104); Anion Gap 6 mmol/L (2-11); Blood Urea Nitrogen 18 mg/dL (6-24); CO2 Carbon Dioxide 25 mmol/L (22-32); Calcium 8.9 mg/dL (8.6-10.3); Chloride 108 mmol/L (101-111); EGFR African American 91.8 (>60); EGFR Non-African American 75.9 (>60); Globulin 3.6 g/dL (2-4); Glucose 120 mg/dL (70-100); Potassium 4.5 mmol/L (3.5-5.0); Sodium 139 mmol/L (135-145); Total Protein 7.1 g/dL (6.4-8.9)
[2020-10-13 13:32] LABS: Troponin I 0.09 ng/mL (<0.03)
[2020-10-13] MEDS ORDERED: Heparin 1,000 UNIT/ML 10 ml (10,000 UNITS) CATHLAB/DIALYSIS ONE (13:34)
[2020-10-13] MEDS ORDERED: VERAPAMIL 2.5 MG/ML 2 ML VIAL ** 5 mg/2 ml ONE (13:34)
[2020-10-13] MEDS ORDERED: Heparin 2 UNITS/ML 1000 mls 3,000 ML IV ONE (13:35)
[2020-10-13] MEDS ORDERED: nitroGLYCERIN DRIP 25,000 MCG/250 ML BTL ONE (13:35)
[2020-10-13] MEDS ORDERED: Iohexol 350 (CONTRAST) 200 ML MDV IV ONE ×3 (13:35→14:54)
[2020-10-13] MEDS ORDERED: Lidocaine 1% VIAL 10 MG/ML VIAL ONE (13:35)
[2020-10-13] MEDS ORDERED: Heparin 5000 UNITS/ML 1 mL VIAL IV PRN ×2 (14:00→19:00)
[2020-10-13] MEDS ORDERED: Midazolam 5 mg/5 ml VIAL 1 mg/ml 5 ml VIAL (5 mg) ONE (14:01)
[2020-10-13] MEDS ORDERED: fentaNYL 100 mcg/2 ml 50 MCG/ML VIAL ONE (14:01)
[2020-10-13] MEDS ORDERED: Bivalirudin 250 MG VIAL ONE ×3 (14:49→17:10)
[2020-10-13] MEDS ORDERED: Eptifibatide IV (Load dose) 2 MG/ML 10 ml VIAL ONE (15:08)
[2020-10-13] MEDS ORDERED: Adenosine 3 MG/ML 2 ml VIAL (6 mg) ONE (15:16)
[2020-10-13] MEDS ORDERED: NS 0.9% 1000 ml BAG 1,000 ML IV SCH (16:45)
[2020-10-13] MEDS ORDERED: Bivalirudin 250 MG in NS 0.9% 50 ML Total BAG IV SCH (18:00)
[2020-10-13 18:07] LABS: Troponin I 2.28 ng/mL (<0.03)
[2020-10-13] MEDS: Metoprolol Tartrate 5 mg VIAL 5 ml VIAL (1 mg/ml) IV PRN (18:39)
[2020-10-13] MEDS ORDERED: oxyCODONE/Acetamin 5/325 mg TAB PO PRN (21:27)
[2020-10-13] MEDS ORDERED: Morphine 2 MG/ML SYRINGE IV ONE (22:00)
[2020-10-13 22:54] LABS: Troponin I 6.17 ng/mL (<0.03)
[2020-10-13] MEDS: hydrALAZINE 20 mg/ml 1 ML Vial IV IV SLOW PU PRN (23:29)
[2020-10-13] MEDS: Heparin DRIP 25,000 UNITS BAG 25,000 UNITS/500 ML BAG IV SCH (23:30)
[2020-10-14 05:44] LABS: ABS Basophils 0.1 10^3/ul (0-0.2); ABS Eosinophils 1.2 10^3/ul (0-0.6); ABS Lymphocytes 1.3 10^3/ul (1.0-4.8); ABS Monocytes 0.7 10^3/ul (0-0.8); ABS Neutrophils 8.7 10^3/ul (1.5-7.7); Eosinophil % 10.3 %; Hematocrit 31 % (42-52); Hemoglobin 10.1 g/dL (14.0-18.0); Lymphocyte % 10.6 %; Mean Corpuscular HGB Conc 33 g/dL (31-36); Mean Corpuscular Hemoglobin 27 pg (27-31); Mean Corpuscular Volume 83 fL (80-94); Mean Platelet Volume 6.8 fL (7.4-10.4); Nucleated Red Blood Cells % 0.1; Platelet Count 407 10^3/uL (150-450); Red Blood Count 3.74 10^6 /uL (4.18-5.48); Red Cell Distribution Width 18 % (10-15)
[2020-10-14 05:59] LABS: Calcium 8.6 mg/dL (8.6-10.3); Potassium 4.4 mmol/L (3.5-5.0)
[2020-10-14 06:05] LABS: EGFR African American 105.2 (>60); EGFR Non-African American 86.9 (>60); HDL Cholesterol 15.3 mg/dL
[2020-10-14 06:10] LABS: Troponin I 6.12 ng/mL (<0.03)
[2020-10-14] MEDS ORDERED: Perflutren Lipid Microsphere 3 ML VIAL ONE (07:40)
[2020-10-14] MEDS: hydrALAZINE 20 mg/ml 1 ML Vial IV IV SLOW PU PRN ×2 (08:11→17:12)
[2020-10-14 08:28] LABS: Troponin I 5.01 ng/mL (<0.03)
[2020-10-14] MEDS: Metoprolol Tartrate 5 mg VIAL 5 ml VIAL (1 mg/ml) IV PRN (09:04)
[2020-10-14] MEDS ORDERED: Iohexol 350 (CONTRAST) 500 ML MDV IV ONE (09:52)
[2020-10-14] MEDS ORDERED: Eptifibatide IV (Load dose) 2 MG/ML 10 ml VIAL IV ONE (12:18)
[2020-10-14] MEDS: Ondansetron 4 mg VIAL 2 MG/ML 2 ml VIAL IV PRN (14:06)
[2020-10-14] MEDS: Heparin DRIP 25,000 UNITS BAG 25,000 UNITS/500 ML BAG IV SCH (20:20)
[2020-10-15] MEDS: hydrALAZINE 20 mg/ml 1 ML Vial IV IV SLOW PU PRN (05:06)
[2020-10-15 06:08] LABS: ABS Basophils 0.2 10^3/ul (0-0.2); ABS Eosinophils 1.5 10^3/ul (0-0.6); ABS Lymphocytes 1.9 10^3/ul (1.0-4.8); ABS Monocytes 0.8 10^3/ul (0-0.8); ABS Neutrophils 6.4 10^3/ul (1.5-7.7); Eosinophil % 14.1 %; Hematocrit 32 % (42-52); Hemoglobin 10.3 g/dL (14.0-18.0); Lymphocyte % 17.8 %; Mean Corpuscular HGB Conc 32 g/dL (31-36); Mean Corpuscular Hemoglobin 27 pg (27-31); Mean Corpuscular Volume 86 fL (80-94); Nucleated Red Blood Cells % 0.1; Platelet Count 371 10^3/uL (150-450); Red Blood Count 3.77 10^6 /uL (4.18-5.48); Red Cell Distribution Width 18 % (10-15); White Blood Count 10.7 10^3/uL (3.5-10.8)
[2020-10-15 06:13] LABS: Calcium 8.4 mg/dL (8.6-10.3); Magnesium 2.1 mg/dL (1.9-2.7)
[2020-10-15 06:19] LABS: EGFR African American 101.2 (>60); EGFR Non-African American 83.6 (>60)
[2020-10-15] MEDS: Ondansetron 4 mg VIAL 2 MG/ML 2 ml VIAL IV PRN (10:25)
[2020-10-15] MEDS: Heparin DRIP 25,000 UNITS BAG 25,000 UNITS/500 ML BAG IV SCH (13:47)
[2020-10-15] MEDS ORDERED: Calcium Carb (TUMS) 500 mg CHEW TAB PO PRN (21:34)
[2020-10-16 04:16] LABS: ABS Eosinophils 1.7 10^3/ul (0-0.6); ABS Lymphocytes 2.2 10^3/ul (1.0-4.8); ABS Monocytes 0.7 10^3/ul (0-0.8); ABS Neutrophils 5.6 10^3/ul (1.5-7.7); Eosinophil % 16.6 %; Hematocrit 31 % (42-52); Hemoglobin 9.7 g/dL (14.0-18.0); Lymphocyte % 21.5 %; Mean Corpuscular HGB Conc 32 g/dL (31-36); Mean Corpuscular Hemoglobin 27 pg (27-31); Mean Corpuscular Volume 85 fL (80-94); Mean Platelet Volume 6.9 fL (7.4-10.4); Platelet Count 375 10^3/uL (150-450); Red Blood Count 3.62 10^6 /uL (4.18-5.48); Red Cell Distribution Width 18 % (10-15); White Blood Count 10.2 10^3/uL (3.5-10.8)
[2020-10-16 04:32] LABS: Calcium 8.4 mg/dL (8.6-10.3); EGFR African American 90.7 (>60); Magnesium 2.1 mg/dL (1.9-2.7); Potassium 3.8 mmol/L (3.5-5.0)
[2020-10-16] MEDS ORDERED: Potassium Chlor 20 meq TAB.ER PO ONE (05:17)
[2020-10-16 10:44] VITALS: BP 129/80
== END 2020-10-16 12:10 | disposition home or self-care (01) | DRG 175 ==
LOC: EDBD → ED 12:31 → ICU 16:35 → MERGE 16:35

== ENCOUNTER 2020-10-16 14:13 | Inpatient (IN) ==
[2020-10-16 14:39] LABS: ABS Basophils 0.1 10^3/ul (0-0.2); ABS Eosinophils 1.4 10^3/ul (0-0.6); ABS Lymphocytes 1.1 10^3/ul (1.0-4.8); ABS Monocytes 0.8 10^3/ul (0-0.8); ABS Neutrophils 7.7 10^3/ul (1.5-7.7); Eosinophil % 12.4 %; Hematocrit 35 % (42-52); Hemoglobin 10.9 g/dL (14.0-18.0); Lymphocyte % 9.8 %; Mean Corpuscular HGB Conc 32 g/dL (31-36); Mean Corpuscular Hemoglobin 27 pg (27-31); Mean Corpuscular Volume 84 fL (80-94); Platelet Count 409 10^3/uL (150-450); Red Blood Count 4.11 10^6 /uL (4.18-5.48); Red Cell Distribution Width 18 % (10-15); White Blood Count 11.1 10^3/uL (3.5-10.8)
[2020-10-16] MEDS ORDERED: NS 0.9% 1000 ml BAG 1,000 ML IV ONE (14:51)
[2020-10-16 14:56] LABS: ALT 19 U/L (7-52); AST 26 U/L (13-39); Albumin 3.6 g/dL (3.2-5.2); Alkaline Phosphatase 96 U/L (34-104); Anion Gap 6 mmol/L (2-11); Blood Urea Nitrogen 16 mg/dL (6-24); CO2 Carbon Dioxide 26 mmol/L (22-32); Chloride 106 mmol/L (101-111); EGFR Non-African American 68.6 (>60); Globulin 3.6 g/dL (2-4); Glucose 101 mg/dL (70-100); Potassium 4.5 mmol/L (3.5-5.0); Sodium 138 mmol/L (135-145); Total Protein 7.2 g/dL (6.4-8.9)
[2020-10-16 14:58] LABS: Troponin I 1.09 ng/mL (<0.03)
[2020-10-16] MEDS ORDERED: Heparin - STEMI 5,000 UNITS/ML 1 ml VIAL IV ONE (15:38)
[2020-10-16] MEDS ORDERED: Heparin DRIP 25,000 UNITS BAG 25,000 UNITS/500 ML BAG IV SCH (15:45)
[2020-10-16] MEDS ORDERED: Heparin 5000 UNITS/ML 1 mL VIAL IV SCH (16:00)
[2020-10-16 16:59] LABS: C Reactive Protein 22.91 mg/L (<8.01)
[2020-10-16] MEDS ORDERED: Iohexol 350 (CONTRAST) 200 ML MDV IV ONE ×4 (17:09→19:35)
[2020-10-16] MEDS ORDERED: Lidocaine 1% VIAL 10 MG/ML VIAL ONE (17:09)
[2020-10-16] MEDS ORDERED: Heparin 2 UNITS/ML 1000 mls 2,000 ML IV ONE (17:09)
[2020-10-16] MEDS ORDERED: VERAPAMIL 2.5 MG/ML 2 ML VIAL ** 5 mg/2 ml ONE (17:31)
[2020-10-16] MEDS ORDERED: Heparin 1,000 UNIT/ML 10 ml (10,000 UNITS) CATHLAB/DIALYSIS ONE (17:32)
[2020-10-16] MEDS ORDERED: nitroGLYCERIN DRIP 25,000 MCG/250 ML BTL ONE (17:32)
[2020-10-16] MEDS ORDERED: diPHENhydraMINE IV 50 MG/ML 1 ml VIAL (BENADRYL) ONE (17:58)
[2020-10-16] MEDS ORDERED: Midazolam 5 mg/5 ml VIAL 1 mg/ml 5 ml VIAL (5 mg) ONE (17:58)
[2020-10-16] MEDS ORDERED: Pantoprazole VIAL 40 MG VIAL IV SCH (18:00)
[2020-10-16] MEDS ORDERED: Lactated Ringers 1000 ml BAG 1,000 ML IV SCH (18:00)
[2020-10-16 18:06] LABS: Erythrocyte Sed Rate 82 mm/Hr (0-19)
[2020-10-16] MEDS ORDERED: Adenosine 3 MG/ML 2 ml VIAL (6 mg) ONE (18:52)
[2020-10-16] MEDS ORDERED: Bivalirudin 250 MG VIAL ONE ×2 (18:55→19:30)
[2020-10-16] MEDS ORDERED: Atropine 0.1 MG/ML 10 ml SYR (1 mg) ONE (18:57)
[2020-10-16] MEDS ORDERED: Heparin 2 UNITS/ML 1000 mls 1,000 ML IV ONE (19:01)
[2020-10-16] MEDS ORDERED: niCARdipine 0.1MG/ML IVPREMIX 20 MG/200 ML BAG IV ONE (19:40)
[2020-10-16] MEDS ORDERED: HYDROmorphone 1 MG/1 ML SYRINGE ONE (19:52)
[2020-10-16] MEDS: NS 0.9% 1000 ml BAG 1,000 ML IV SCH (20:21)
[2020-10-16 21:27] LABS: Troponin I 1.58 ng/mL (<0.03)
[2020-10-17] MEDS: NS 0.9% 1000 ml BAG 1,000 ML IV SCH (01:28)
[2020-10-17 03:15] LABS: Troponin I 3.34 ng/mL (<0.03)
[2020-10-17 05:08] LABS: ABS Basophils 0.2 10^3/ul (0-0.2); ABS Eosinophils 1.8 10^3/ul (0-0.6); ABS Lymphocytes 1.3 10^3/ul (1.0-4.8); ABS Monocytes 0.8 10^3/ul (0-0.8); ABS Neutrophils 6.2 10^3/ul (1.5-7.7); Eosinophil % 17.2 %; Hematocrit 31 % (42-52); Hemoglobin 10.1 g/dL (14.0-18.0); Lymphocyte % 12.5 %; Mean Corpuscular HGB Conc 32 g/dL (31-36); Mean Corpuscular Hemoglobin 27 pg (27-31); Mean Corpuscular Volume 84 fL (80-94); Mean Platelet Volume 7.1 fL (7.4-10.4); Platelet Count 361 10^3/uL (150-450); Red Blood Count 3.71 10^6 /uL (4.18-5.48); Red Cell Distribution Width 18 % (10-15); White Blood Count 10.2 10^3/uL (3.5-10.8)
[2020-10-17 05:27] LABS: Calcium 8.4 mg/dL (8.6-10.3); EGFR African American 89.7 (>60); EGFR Non-African American 74.1 (>60); Magnesium 2.2 mg/dL (1.9-2.7); Phosphorus 2.8 mg/dL (2.5-5.0); Potassium 4.3 mmol/L (3.5-5.0)
[2020-10-17] MEDS: Aspirin EC 81 mg TAB.EC (enteric coated) PO SCH (08:18)
[2020-10-17 10:57] LABS: Troponin I 5.07 ng/mL (<0.03)
[2020-10-17] MEDS ORDERED: Magnesium Hydroxide LIQ 30 ML UDC PO PRN (14:56)
[2020-10-17 16:54] LABS: Troponin I 4.36 ng/mL (<0.03)
[2020-10-17] MEDS: Heparin 5000 UNITS/ML 1 mL VIAL SUBCUT SCH (19:50)
[2020-10-18 06:14] LABS: Urine Appearance Clear; Urine Bilirubin Negative (Negative); Urine Blood Negative (Negative); Urine Color Yellow; Urine Glucose Negative (Negative); Urine Ketones Negative (Negative); Urine Nitrite Negative (Negative); Urine Protein Negative (Negative); Urine Specific Gravity 1.017 (1.002-1.030); Urine Urobilinogen Negative (Negative)
[2020-10-18 06:23] LABS: ABS Basophils 0.2 10^3/ul (0-0.2); ABS Lymphocytes 1.6 10^3/ul (1.0-4.8); ABS Monocytes 1.1 10^3/ul (0-0.8); ABS Neutrophils 7.6 10^3/ul (1.5-7.7); Eosinophil % 16.1 %; Hematocrit 33 % (42-52); Hemoglobin 10.6 g/dL (14.0-18.0); Lymphocyte % 12.9 %; Mean Corpuscular HGB Conc 32 g/dL (31-36); Mean Corpuscular Hemoglobin 27 pg (27-31); Mean Corpuscular Volume 85 fL (80-94); Mean Platelet Volume 7.3 fL (7.4-10.4); Platelet Count 399 10^3/uL (150-450); Red Blood Count 3.94 10^6 /uL (4.18-5.48); Red Cell Distribution Width 18 % (10-15); White Blood Count 12.5 10^3/uL (3.5-10.8)
[2020-10-18 06:43] LABS: Calcium 8.9 mg/dL (8.6-10.3); EGFR African American 88.7 (>60); EGFR Non-African American 73.3 (>60); Potassium 4.3 mmol/L (3.5-5.0)
[2020-10-18] MEDS: Aspirin EC 81 mg TAB.EC (enteric coated) PO SCH (09:37)
[2020-10-18] MEDS: Heparin 5000 UNITS/ML 1 mL VIAL SUBCUT SCH (09:39)
[2020-10-18 11:17] VITALS: BP 153/36
== END 2020-10-18 12:00 | disposition home or self-care (01) | DRG 175 ==
LOC: ED 14:13 → ICU 15:42 → MEDTELE 10-17 10:58
PROVIDERS: ADMIT Internal Medicine; ATTEND Hospitalist

== ENCOUNTER 2024-03-09 12:02 | Inpatient (IN) ==
[2024-03-09] MEDS ORDERED: Rocuronium 50 mg VIAL 10 mg/ml 5 ml VIAL (50 mg) ONE (12:22)
[2024-03-09] MEDS ORDERED: Lidocaine 2% PF 5 ML VIAL ONE (12:22)
[2024-03-09] MEDS ORDERED: Propofol 10 MG/ML 20 ML BTL ONE (12:22)
[2024-03-09 13:21] LABS: Rapid COVID-19 Molecular Undetected (Undetected)
[2024-03-09] MEDS ORDERED: HYDROmorphone 1 MG/1 ML SYRINGE IV PRN (13:29)
[2024-03-09] MEDS ORDERED: Naloxone 0.4 mg VIAL 0.4 mg/ml 1 ml VIAL IV PRN (13:29)
[2024-03-09] MEDS ORDERED: Ondansetron 4 mg VIAL 2 MG/ML 2 ml VIAL IV PRN ×2 (13:29→16:44)
[2024-03-09] MEDS ORDERED: fentaNYL 100 mcg/2 ml 50 MCG/ML VIAL IV PRN (13:29)
[2024-03-09] MEDS: Lactated Ringers 1000 ml BAG 1,000 ML IV SCH ×2 (14:02→23:08)
[2024-03-09] MEDS: Buffered Lidocaine 1% SYRIN 1 ml INTRADERM ONE (14:08)
[2024-03-09] MEDS: Scopolamine 1 mg/72hr PATCH TRANSDERM ONE (14:08)
[2024-03-09] MEDS ORDERED: Midazolam 5 mg/5 ml VIAL 1 mg/ml 5 ml VIAL (5 mg) ONE (14:46)
[2024-03-09] MEDS ORDERED: fentaNYL 100 mcg/2 ml 50 MCG/ML VIAL ONE (14:46)
[2024-03-09] MEDS ORDERED: ROPIVACAINE 5 MG/ML 30 ML BTL (0.5%) ONE (14:49)
[2024-03-09] MEDS ORDERED: Lidocaine 1% w EPI 1:100,000 MDV 20 ML VIAL ONE (14:54)
[2024-03-09] MEDS ORDERED: Bupivacaine 0.5% SDV PF 30ML VIAL ONE (14:54)
[2024-03-09] MEDS ORDERED: Bupivacaine 0.25% EPI 200,000 30 ML SDV ONE (14:55)
[2024-03-09] MEDS ORDERED: Dexamethasone IV 4 MG/ML VIAL 1 ml VIAL ONE (15:42)
[2024-03-09] MEDS ORDERED: Ondansetron 4 mg VIAL 2 MG/ML 2 ml VIAL ONE (15:43)
[2024-03-09] MEDS ORDERED: Sodium Chloride 0.9% 10 ML ONE (16:24)
[2024-03-09] MEDS ORDERED: Lactulose 30 ml UDC PO PRN (16:44)
[2024-03-09] MEDS ORDERED: Magnesium Hydroxide LIQ 30 ML UDC PO PRN (16:44)
[2024-03-09] MEDS ORDERED: Glycopyrrolate IV 0.2 MG/ML 1 ML VIAL ONE (16:56)
[2024-03-09] MEDS ORDERED: ceFAZolin VIAL VIAL ONE (17:00)
[2024-03-09] MEDS ORDERED: Vancomycin per Pharmacy 1 EA NOTE FOLLOW UP SCH (17:00)
[2024-03-09] MEDS: Acetaminophen IV 1 GM/100ML 1,000 MG/100 ML BAG IV ONE (22:44)
[2024-03-09] MEDS: Vancomycin 1,500 MG in NS 0.9% 250 ml 250 ML IVPB ONE (23:11)
[2024-03-09] MEDS: Magnesium Hydroxide LIQ 30 ML UDC PO SCH (23:23)
[2024-03-09 23:38] LABS: Hematocrit 30.9 % (38-53); Hemoglobin 9.8 g/dL (13.2-16.3); Mean Corpuscular Hemoglobin 23.7 pg (27-33); Mean Corpuscular Hgb Conc 31.8 g/dL (31-36); Mean Corpuscular Volume 74.6 fL (80-97); Mean Platelet Volume 7.1 fL (7.5-11.2); Platelet Count 562 10^3/uL (150-450); Red Blood Count 4.14 10^6/uL (4.06-5.63); Red Cell Distribution Width 19.2 % (12-17); White Blood Count 17.3 10^3/uL (3.6-10.2)
[2024-03-10 00:10] LABS: Calcium 8.4 mg/dL (8.6-10.3); Creatinine, Serum 0.94 mg/dL (0.67-1.17); Potassium 4.2 mmol/L (3.5-5.0); eGFR CKD-EPI 88.3 (>60)
[2024-03-10 01:37] LABS: ABS Lymphocytes 0.4 10^3/uL (1.0-4.8); ABS Monocytes 0.4 10^3/uL (0.0-1.1); ABS Neutrophils 16.4 10^3/uL (1.5-7.6); ABS Nucleated RBC 0.01 10^3/ul; Lymphocyte % 2.6 %
[2024-03-10] MEDS: Cefepime 2 GM in Dextrose 2 GM/50 ML BAG IV SCH (01:52)
[2024-03-10 05:44] LABS: Calcium 8.3 mg/dL (8.6-10.3); Creatinine, Serum 0.93 mg/dL (0.67-1.17); Potassium 4.4 mmol/L (3.5-5.0); eGFR CKD-EPI 89.4 (>60)
[2024-03-10 06:21] LABS: Hematocrit 29.4 % (38-53); Hemoglobin 9.2 g/dL (13.2-16.3); Mean Platelet Volume 7.2 fL (7.5-11.2); Platelet Count 482 10^3/uL (150-450)
[2024-03-10] MEDS: Vitamin THERAPEUTIC TAB PO SCH (09:21)
[2024-03-10] MEDS: Enoxaparin 40 MG/0.4 ML SYR SUBCUT SCH (11:24)
[2024-03-10] MEDS: Vancomycin 1,250 MG in NS 0.9% 250 ml 250 ML IVPB SCH (11:40)
[2024-03-11 06:09] LABS: Hematocrit 29.7 % (38-53); Hemoglobin 9.4 g/dL (13.2-16.3); Mean Platelet Volume 7.2 fL (7.5-11.2); Platelet Count 540 10^3/uL (150-450)
[2024-03-11] MEDS: cefTRIAXone 2 gm/50 mL D5W 2 GM/50 ML BAG IV SCH (12:20)
[2024-03-11] MEDS: Vancomycin Trough Check NOTE FOLLOW UP ONE (12:28)
[2024-03-12] MEDS: Vancomycin 1,500 MG in NS 0.9% 250 ml 250 ML IVPB SCH (02:28)
[2024-03-12 05:33] LABS: Hematocrit 30.5 % (38-53); Hemoglobin 9.8 g/dL (13.2-16.3); Platelet Count 549 10^3/uL (150-450)
[2024-03-12] MEDS: Vancomycin Trough Check NOTE FOLLOW UP ONE (12:50)
[2024-03-13 05:58] LABS: Hematocrit 29.8 % (38-53); Hemoglobin 9.7 g/dL (13.2-16.3); Mean Platelet Volume 6.9 fL (7.5-11.2); Platelet Count 504 10^3/uL (150-450)
[2024-03-13 15:14] LABS: Creatinine, Serum 0.89 mg/dL (0.67-1.17); eGFR CKD-EPI 93.3 (>60)
[2024-03-14 06:35] LABS: Hematocrit 28.7 % (38-53); Hemoglobin 9.5 g/dL (13.2-16.3); Mean Platelet Volume 7.1 fL (7.5-11.2); Platelet Count 526 10^3/uL (150-450)
[2024-03-14 09:57] VITALS: BP 154/58
[2024-03-14] MEDS: Ondansetron ODT 4 mg TAB 4 MG TAB PO PRN (10:54)
[2024-03-14] MEDS ORDERED: Vancomycin Trough Check NOTE FOLLOW UP ONE (12:30)
[2024-03-14 13:06] LABS: Creatinine, Serum 0.76 mg/dL (0.67-1.17); Vancomycin Trough 14.5 mcg/mL; eGFR CKD-EPI 97.9 (>60)
[2024-03-14 16:44] LABS: B. burgdorferi PCR Negative (Negative); B. garinii/B. afzellii PCR Negative (Negative)
== END 2024-03-14 15:45 | disposition home or self-care (01) | DRG 512 ==
LOC: OR 12:02 → SSU 12:02 → OBSVTOIN 21:06
PROVIDERS: ADMIT Orthopaedic Surgery Hand Surgery; ATTEND Orthopaedic Surgery Hand Surgery

== ENCOUNTER 2024-04-03 09:27 | Inpatient (IN) ==
[2024-04-03 14:44] LABS: ABS Eosinophils 0.2 10^3/uL (0.0-0.5); ABS Lymphocytes 1.3 10^3/uL (1.0-4.8); ABS Monocytes 0.9 10^3/uL (0.0-1.1); ABS Neutrophils 6.7 10^3/uL (1.5-7.6); Hematocrit 34.3 % (38-53); Hemoglobin 11.1 g/dL (13.2-16.3); Lymphocyte % 14.4 %; Mean Corpuscular Hemoglobin 24.8 pg (27-33); Mean Corpuscular Hgb Conc 32.4 g/dL (31-36); Mean Corpuscular Volume 76.5 fL (80-97); Mean Platelet Volume 7.3 fL (7.5-11.2); Platelet Count 557 10^3/uL (150-450); Red Blood Count 4.48 10^6/uL (4.06-5.63); Red Cell Distribution Width 21.1 % (12-17); White Blood Count 9.1 10^3/uL (3.6-10.2)
[2024-04-03 15:15] LABS: Albumin 3.2 g/dL (3.2-5.2); Albumin/Globulin Ratio 1.1 (1-3); C Reactive Protein 118.58 mg/L (<8.01); Calcium 8.8 mg/dL (8.6-10.3); Creatinine, Serum 1.03 mg/dL (0.67-1.17); Potassium 4.5 mmol/L (3.5-5.0); Total Bilirubin 0.5 mg/dL (0.2-1.0); Total Protein 6.2 g/dL (6.4-8.9); eGFR CKD-EPI 78.6 (>60)
[2024-04-03] MEDS: Iohexol 300 (CONTRAST) 10 ML SDV IV ONE (17:44)
[2024-04-03] MEDS ORDERED: Vancomycin per Pharmacy 1 EA NOTE FOLLOW UP PRN (19:18)
[2024-04-03] MEDS: cefTRIAXone 2 gm/50 mL D5W 2 GM/50 ML BAG IV SCH (19:53)
[2024-04-03] MEDS ORDERED: Vancomycin 1,250 MG in NS 0.9% 250 ml 250 ML IVPB SCH (20:00)
[2024-04-03] MEDS ORDERED: TICAGRELOR 60 MG PO SCH (21:00)
[2024-04-03] MEDS: Vancomycin 1500 MG IV - x ONCE IVPB ONE (22:06)
[2024-04-04 06:20] LABS: ABS Basophils 0.1 10^3/uL (0.0-0.1); ABS Eosinophils 0.3 10^3/uL (0.0-0.5); ABS Lymphocytes 1.3 10^3/uL (1.0-4.8); ABS Monocytes 1.2 10^3/uL (0.0-1.1); ABS Neutrophils 4.6 10^3/uL (1.5-7.6); Eosinophil % 3.5 %; Hemoglobin 10.7 g/dL (13.2-16.3); Lymphocyte % 17.8 %; Mean Corpuscular Hemoglobin 23.9 pg (27-33); Mean Corpuscular Hgb Conc 31.5 g/dL (31-36); Mean Corpuscular Volume 75.9 fL (80-97); Mean Platelet Volume 7.5 fL (7.5-11.2); Platelet Count 517 10^3/uL (150-450); Red Blood Count 4.48 10^6/uL (4.06-5.63); Red Cell Distribution Width 20.6 % (12-17); White Blood Count 7.4 10^3/uL (3.6-10.2)
[2024-04-04] MEDS: Vancomycin 1,250 MG in NS 0.9% 250 ml 250 ML IVPB SCH (06:30)
[2024-04-04 06:52] LABS: Creatinine, Serum 0.84 mg/dL (0.67-1.17); Magnesium 1.8 mg/dL (1.9-2.7); Potassium 4.5 mmol/L (3.5-5.0); eGFR CKD-EPI 94.4 (>60)
[2024-04-04] MEDS ORDERED: TICAGRELOR 60 MG PO SCH (21:00)
[2024-04-05 05:42] LABS: ABS Basophils 0.1 10^3/uL (0.0-0.1); ABS Eosinophils 0.4 10^3/uL (0.0-0.5); ABS Lymphocytes 1.5 10^3/uL (1.0-4.8); ABS Monocytes 0.8 10^3/uL (0.0-1.1); ABS Neutrophils 3.6 10^3/uL (1.5-7.6); Eosinophil % 5.6 %; Hematocrit 33.1 % (38-53); Hemoglobin 10.5 g/dL (13.2-16.3); Lymphocyte % 23.3 %; Mean Corpuscular Hemoglobin 23.9 pg (27-33); Mean Corpuscular Hgb Conc 31.7 g/dL (31-36); Mean Corpuscular Volume 75.5 fL (80-97); Mean Platelet Volume 7.3 fL (7.5-11.2); Nucleated Red Blood Cells % 0.1 %/100WBC (0.0-0.8); Platelet Count 539 10^3/uL (150-450); Red Blood Count 4.38 10^6/uL (4.06-5.63); Red Cell Distribution Width 19.8 % (12-17); White Blood Count 6.3 10^3/uL (3.6-10.2)
[2024-04-05 06:01] LABS: Calcium 8.6 mg/dL (8.6-10.3); Creatinine, Serum 0.95 mg/dL (0.67-1.17); Magnesium 1.8 mg/dL (1.9-2.7); Potassium 4.5 mmol/L (3.5-5.0); eGFR CKD-EPI 86.6 (>60)
[2024-04-05] MEDS: Vancomycin Trough Check NOTE FOLLOW UP ONE (06:26)
[2024-04-05] MEDS: Magnesium Sulfate 2 gm BAG 2 GM/50 ML BAG IVPB ONE (08:07)
[2024-04-05] MEDS ORDERED: Lidocaine 2% PF 5 ML VIAL ONE (13:02)
[2024-04-05] MEDS ORDERED: Dexamethasone IV 4 MG/ML VIAL 1 ml VIAL ONE (13:02)
[2024-04-05] MEDS ORDERED: fentaNYL 250 mcg/5 ml 50 MCG/ML 5 ml VIAL (250 MCG) ONE ×2 (13:02)
[2024-04-05] MEDS ORDERED: Ondansetron 4 mg VIAL 2 MG/ML 2 ml VIAL ONE (13:02)
[2024-04-05] MEDS ORDERED: Propofol 10 MG/ML 20 ML BTL ONE (13:02)
[2024-04-05] MEDS ORDERED: Rocuronium 50 mg VIAL 10 mg/ml 5 ml VIAL (50 mg) ONE ×2 (13:02→13:12)
[2024-04-05] MEDS ORDERED: Midazolam 2 mg/2 ml VIAL 1 mg/ml 2 ml VIAL (2 mg) ONE ×2 (13:02)
[2024-04-05] MEDS ORDERED: ceFAZolin VIAL VIAL ONE (13:08)
[2024-04-05] MEDS ORDERED: HYDROmorphone 0.5 MG/0.5 ML SYRINGE ONE (13:26)
[2024-04-05] MEDS ORDERED: fentaNYL 100 mcg/2 ml 50 MCG/ML VIAL ONE ×2 (13:33→14:36)
[2024-04-05] MEDS: Lactated Ringers 1000 ml BAG 1,000 ML IV SCH (16:31)
[2024-04-05] MEDS: HYDROcodone/ACETAMIN 5/325 mg TAB PO PRN (17:02)
[2024-04-05] MEDS: Enoxaparin 40 MG/0.4 ML SYR SUBCUT SCH (17:03)
[2024-04-06 09:07] LABS: ABS Basophils 0.1 10^3/uL (0.0-0.1); ABS Lymphocytes 1.1 10^3/uL (1.0-4.8); ABS Monocytes 1.1 10^3/uL (0.0-1.1); ABS Neutrophils 11.1 10^3/uL (1.5-7.6); Eosinophil % 0.1 %; Hematocrit 32.1 % (38-53); Hemoglobin 9.9 g/dL (13.2-16.3); Lymphocyte % 8.3 %; Mean Corpuscular Hemoglobin 23.5 pg (27-33); Mean Corpuscular Volume 75.8 fL (80-97); Mean Platelet Volume 7.6 fL (7.5-11.2); Platelet Count 520 10^3/uL (150-450); Red Blood Count 4.23 10^6/uL (4.06-5.63); White Blood Count 13.4 10^3/uL (3.6-10.2)
[2024-04-06 10:01] LABS: Calcium 8.4 mg/dL (8.6-10.3); Creatinine, Serum 0.8 mg/dL (0.67-1.17); Magnesium 1.9 mg/dL (1.9-2.7); Potassium 5.2 mmol/L (3.5-5.0); Uric Acid 3.1 mg/dL (4.4-7.6); eGFR CKD-EPI 95.8 (>60)
[2024-04-06] MEDS ORDERED: Polyethylene Glycol 3350 17 GM PACKET PO PRN (11:50)
[2024-04-06] MEDS: TICAGRELOR 60 MG PO SCH (20:40)
[2024-04-06] MEDS ORDERED: Senna TAB 8.6 mg TAB PO PRN (21:00)
[2024-04-07 07:25] LABS: Creatinine, Serum 0.83 mg/dL (0.67-1.17); Magnesium 1.8 mg/dL (1.9-2.7); Potassium 4.8 mmol/L (3.5-5.0); Vancomycin Trough 12.5 mcg/mL; eGFR CKD-EPI 94.7 (>60)
[2024-04-07] MEDS: Vancomycin Trough Check NOTE FOLLOW UP ONE (08:41)
[2024-04-07] MEDS: DAPTOmycin SDV 750 MG in NS 0.9% 50 ML 50 ML IVPB SCH (11:13)
[2024-04-07] MEDS: Magnesium Sulfate 2 gm BAG 2 GM/50 ML BAG IVPB ONE (12:04)
[2024-04-07] MEDS: cefTRIAXone 2 gm/50 mL D5W 2 GM/50 ML BAG IV SCH (13:32)
[2024-04-07 14:37] VITALS: BP 167/92
[2024-04-07 17:19] LABS: Immunoglobulin G 1020 mg/dL (767 - 1590); Immunoglobulin M <5 mg/dL (37 - 286)
[2024-04-07 17:33] LABS: Cyclic Citrullinated Pept IgG <15.6 U
[2024-04-09 09:56] LABS: HLA B27 Negative
[2024-04-09 16:27] LABS: B. burgdorferi PCR Negative (Negative); B. garinii/B. afzellii PCR Negative (Negative); Lyme Disease Source LEFT SHOULDER TISSUE
== END 2024-04-07 15:30 | disposition home or self-care (01) | DRG 500 ==
LOC: ED 09:27 → EDHOLD 09:27 → SUATTDRO 17:32 → SSU 19:52
PROVIDERS: ADMIT Student in an Organized Health Care Education/Training Program; ATTEND Internal Medicine